=== PATIENT | male | born 1950 | race Caucasian/White ===

== ENCOUNTER 2018-03-16 08:28 | Inpatient (IN) ==
--- NOTE | 2018-03-16 09:05 | ED ---
HPI General Chief complaint: Weakness Stated complaint: doctor sent Time Seen by Provider: 03/16/18 08:47 Source: patient, RN notes reviewed and old records reviewed Mode of arrival: ambulatory Limitations: no limitations History of Present Illness HPI Narrative: 67 y/o male states since February 22 he has been generally weak with a tired feeling and not wanting to eat. He states he aches all over. He went to his new primary care doctor and had blood work done and was told that there was something critical and he should come to the hospital. He is not sure what it was. He states he has not seen that physician yet and this was just preliminary blood work. He states he will be seeing Dr. Willett. He denies other specific complaints. His family member helps supplement history as he states he does not feel like talking. MD Complaint: generalized weakness Onset (ago): week(s) Related Data Home Medications Medication Instructions Recorded Confirmed No Known Home Medications 03/16/18 03/16/18 Allergies Allergy/AdvReac Type Severity Reaction Status Date / Time No Known Allergies Allergy Verified 03/16/18 10:07 Review of Systems ROS: all other systems reviewed are negative PMFSH History History Provided By: Patient (Lung cancer in remission for multiple years with normal PET scan) and Family Member Medical History Medical History Hypertension (Acute) Lung cancer (Acute) Surgical History Surgical History History of lung surgery (Acute) Social History Social History Substance History: No History of Abuse and Past History Smoking Status: Current every day smoker Tobacco Type: Cigarettes How Often Do You Have a Drink Containing Alcohol: 4 or more times a week Immunization History Tetanus Immunization: Unsure Hx Influenza Vaccine This Season: No Exam Narrative Exam Narrative: GENERAL: 67 y/o male in no apparent distress SKIN: Focused skin assessment warm/dry. HEAD: Atraumatic. Normocephalic. EYES: Pupils equal and round. No scleral icterus. No injection or drainage. ENT: No nasal bleeding or discharge. Mucous membranes pink and moist. NECK: Trachea midline. No JVD. CARDIOVASCULAR: Regular rate and rhythm RESPIRATORY: No accessory muscle use. expiratory wheezing bilaterally. GASTROINTESTINAL: Abdomen soft, non-tender, nondistended. MUSCULOSKELETAL: No obvious deformities. No clubbing. NEUROLOGICAL: Awake. Moves all extremities. Normal speech. Course Reevaluation(s) Reevaluation #1: Patient and family member updated about results. Given generalized weakness and decreased intake will admit to the hospital for IV hydration. While he is here they can consult his oncologist Dr. Boyle to initiate cancer workup Consultations Consultation #1: dr herrera agrees to admit, states full admit Initial Documented Vital Signs Temperature 97.8 F 03/16/18 08:31 Pulse Rate 100 H 03/16/18 08:31 Respiratory Rate 22 03/16/18 08:31 Blood Pressure 116/59 L 03/16/18 08:31 Pulse Oximetry 98 03/16/18 08:31 Last Documented Vital Signs Temperature 97.8 F 03/16/18 08:31 Pulse Rate 81 03/16/18 10:00 Respiratory Rate 12 03/16/18 10:00 Blood Pressure 122/73 03/16/18 10:00 Pulse Oximetry 91 L 03/16/18 10:00 Medical Decision Making MDM Narrative Medical decision making narrative: Will check basic blood work, urinalysis, chest x-ray and obtain records from patient's doctor's office. Will dose with DuoNeb given active wheezing and reevaluate Medical Screen Exam Complete: Yes Emergency Medical Condition: Yes Differential Diagnosis Differential Diagnosis: Anemia, renal failure, pneumonia, UTI Medical Records Medical records reviewed: Yes I reviewed the patient's medical records. Office lab work shows critical calcium of 16.4, patient had also concurrent mild leukocytosis with a white count of 12.9 Lab Data Lab results reviewed: Yes I reviewed the patient's lab results. Result diagrams: 03/16/18 09:05 03/16/18 09:05 Lab Results 03/16/18 03/16/18 03/16/18 Range/Units 09:05 09:05 09:05 WBC 12.9 H (4.0-11.0) th/mm3 RBC 4.95 (4.50-5.90) mil/mm3 Hgb 15.6 (13.0-17.0) gm/dL Hct 44.3 (39.0-51.0) % MCV 89.4 (80.0-100.0) fL MCH 31.4 (27.0-34.0) pg MCHC 35.1 (32.0-36.0) % RDW 13.4 (11.6-17.2) % Plt Count 289 (150-450) th/mm3 MPV 7.3 (7.0-11.0) fL Neut % (Auto) 78.8 H (16.0-70.0) % Lymph % (Auto) 7.7 L (9.0-44.0) % Cloud % (Auto) 12.0 H (0.0-8.0) % Eos % (Auto) 0.7 (0.0-4.0) % Baso % (Auto) 0.8 (0.0-2.0) % Neut # (Auto) 10.1 H (1.8-7.7) th/mm3 Lymph # (Auto) 1.0 (1.0-4.8) th/mm3 Cloud # (Auto) 1.5 H (0.0-0.9) th/mm3 Eos # (Auto) 0.1 (0.0-0.4) th/mm3 Baso # (Auto) 0.1 (0.0-0.2) th/mm3 WBC Differential . Differential Comment Auto diff final Sodium 135 L (136-145) meq/L Potassium 3.5 (3.5-5.1) meq/L Chloride 95 L (98-107) meq/L Carbon Dioxide 30.6 (21.0-32.0) meq/L Anion Gap 9 (5-15) meq/L BUN 45 H (7-18) mg/dL Creatinine 1.84 H (0.60-1.30) mg/dL Estimated GFR 37 L (>89) mL/min Random Glucose 100 (74-106) mg/dL Calcium 16.9 H* (8.5-10.1) mg/dL Prot Corrected Calcium 16.8 H* (8.5-10.1) mg/dL Magnesium 1.5 (1.5-2.5) mg/dL Total Bilirubin 2.0 H (0.2-1.0) mg/dL AST 77 H (15-37) U/L ALT 37 (12-78) U/L Alkaline Phosphatase 342 H (45-117) U/L Total Creatine Kinase 40 (39-308) U/L Troponin I (0.02-0.05) ng/mL Total Protein 7.3 (6.4-8.2) g/dL Albumin 2.6 L (3.4-5.0) g/dL Blood Type O Positive Antibody Screen Negative 03/16/18 Range/Units 09:05 WBC (4.0-11.0) th/mm3 RBC (4.50-5.90) mil/mm3 Hgb (13.0-17.0) gm/dL Hct (39.0-51.0) % MCV (80.0-100.0) fL MCH (27.0-34.0) pg MCHC (32.0-36.0) % RDW (11.6-17.2) % Plt Count (150-450) th/mm3 MPV (7.0-11.0) fL Neut % (Auto) (16.0-70.0) % Lymph % (Auto) (9.0-44.0) % Cloud % (Auto) (0.0-8.0) % Eos % (Auto) (0.0-4.0) % Baso % (Auto) (0.0-2.0) % Neut # (Auto) (1.8-7.7) th/mm3 Lymph # (Auto) (1.0-4.8) th/mm3 Cloud # (Auto) (0.0-0.9) th/mm3 Eos # (Auto) (0.0-0.4) th/mm3 Baso # (Auto) (0.0-0.2) th/mm3 WBC Differential Differential Comment Sodium (136-145) meq/L Potassium (3.5-5.1) meq/L Chloride (98-107) meq/L Carbon Dioxide (21.0-32.0) meq/L Anion Gap (5-15) meq/L BUN (7-18) mg/dL Creatinine (0.60-1.30) mg/dL Estimated GFR (>89) mL/min Random Glucose (74-106) mg/dL Calcium (8.5-10.1) mg/dL Prot Corrected Calcium (8.5-10.1) mg/dL Magnesium (1.5-2.5) mg/dL Total Bilirubin (0.2-1.0) mg/dL AST (15-37) U/L ALT (12-78) U/L Alkaline Phosphatase (45-117) U/L Total Creatine Kinase (39-308) U/L Troponin I Less than 0.02 L (0.02-0.05) ng/mL Total Protein (6.4-8.2) g/dL Albumin (3.4-5.0) g/dL Blood Type Antibody Screen Imaging Data Attestation: I personally reviewed and interpreted this imaging study as follows : Radiologist's impression: Chest X-Ray 03/16/18 08:57 CONCLUSION: Significant change in appearance of the chest. Most recent study I have the PET scan from 10/12/2013 that had shown no recurrent disease. Recurrence is suspected. CT scan is contrast would be of benefit.. Abdomen/Pelvis CT 03/16/18 09:09 CONCLUSION: 1. Innumerable masses scattered throughout the enlarged liver consistent with metastatic disease until proven otherwise. 2. Uncomplicated colonic diverticulosis. 3. Gallbladder sludge. 4. Focal consolidation of the anterior aspect of the left lung base consistent with probable atelectasis. 5. Minimally prominent prostate with central calcifications. 6. Degenerative changes and scoliosis of the thoracolumbar spine. Chest CT 03/16/18 09:32 CONCLUSION: 1. Focal moderate to large alveolar consolidation involving the left mid lung field with probable left hilar mass/adenopathy. The findings are suspicious for neoplasm until proven otherwise. PET/CT scan may be helpful for further evaluation. 2. Innumerable liver masses are noted consistent with probable metastatic disease. 3. Coronary artery calcifications. 4. Degenerative changes and scoliosis of the thoracolumbar spine. Discharge Plan Discharge Disposition Patient Disposition: 30 Still Patient Discharge Details Diagnosis: Weakness, Lung mass, Liver metastasis Physicians Team ED Provider: Naya Mcgowan Primary Care Provider: Boris Liao Rxs /Orders / Referrals /Forms Prescriptions: No Action No Known Home Medications RF: 0 Status ED Status: Admitted Patient
[2018-03-16] MEDS: Sodium Chlor 0.9% Inj 500 ML IV.SIG SCH ×2 (09:15→11:14)
[2018-03-16 09:22] LABS: Baso # (Auto) 0.1 th/mm3 (0.0-0.2); Baso % (Auto) 0.8 % (0.0-2.0); Eos # (Auto) 0.1 th/mm3 (0.0-0.4); Eos % (Auto) 0.7 % (0.0-4.0); Hematocrit 44.3 % (39.0-51.0); Hemoglobin 15.6 gm/dL (13.0-17.0); Lymph % (Auto) 7.7 % (9.0-44.0); Mean Corpuscular HGB Conc 35.1 % (32.0-36.0); Mean Corpuscular Hemoglobin 31.4 pg (27.0-34.0); Mean Corpuscular Volume 89.4 fL (80.0-100.0); Mean Platelet Volume 7.3 fL (7.0-11.0); Mono # (Auto) 1.5 th/mm3 (0.0-0.9); Neut # (Auto) 10.1 th/mm3 (1.8-7.7); Neut % (Auto) 78.8 % (16.0-70.0); Platelet Count 289 th/mm3 (150-450); Red Blood Count 4.95 mil/mm3 (4.50-5.90); Red Cell Distribution Width 13.4 % (11.6-17.2); White Blood Count 12.9 th/mm3 (4.0-11.0)
--- NOTE | 2018-03-16 09:28 | XR ---
EXAM DATE: 03/16/2018 8:57 AM EDT AGE/SEX: 67 years / Male INDICATIONS: Shortness of breath, cough, general weakness. CLINICAL DATA: This is the patient's initial encounter. Patient reports that signs and symptoms have been present for 3 weeks and indicates a pain score of 0/10. MEDICAL/SURGICAL HISTORY: Hypertension. Carcinoma, lung. None. COMPARISON: [facility], CHEST SINGLE AP, 12/11/2010. . FINDINGS: Increasing soft tissue mass and consolidation left lung in this individual with history of carcinoma of the lung. Old rib fractures on the right. The right lung is clear. The heart and pulmonary vascularity are normal. The portion of the bony skeleton visualized is unremarkable. CONCLUSION: Significant change in appearance of the chest. Most recent study I have the PET scan from 10/12/2013 th at had shown no recurrent disease. Recurrence is suspected. CT scan is contrast would be of benefit.. Electronically signed by: Lee Boogie MD 03/16/2018 9:26 AM EDT
[2018-03-16 10:13] LABS: Albumin 2.6 g/dL (3.4-5.0); Calcium 16.9 mg/dL (8.5-10.1); Carbon Dioxide 30.6 meq/L (21.0-32.0); Magnesium 1.5 mg/dL (1.5-2.5); Potassium 3.5 meq/L (3.5-5.1); Total Protein 7.3 g/dL (6.4-8.2)
[2018-03-16] MEDS ORDERED: Sodium Chlor 0.9% Inj 500 ML IV.SIG SCH (11:00)
--- NOTE | 2018-03-16 11:24 | CT ---
EXAM DATE: 03/16/2018 10:50 AM EDT AGE/SEX: 67 years / Male INDICATIONS: Vomiting and weakness. CLINICAL DATA: This is the patient's initial encounter. Patient reports that signs and symptoms have been present for 1 day and indicates a pain score of 1/10. MEDICAL/SURGICAL HISTORY: Hypertension. Carcinoma, lung. None. RADIATION DOSE: 5.40 CTDI (mGy) COMPARISON: [facility], PET/CT TUMOR, 10/12/2013. . TECHNIQUE: Multiple contiguous axial images were obtained through the abdomen. Images were obtained using multiple row detector helical technique. Using automated exposure control and adjustment of the mA and/or kV according to patient size, radiation dose was kept as low as reasonably achievable to o btain optimal diagnostic quality images. DICOM format image data is available electronically for rev iew and comparison. FINDINGS: Lower Lungs: There is focal consolidation of the anterior aspect of the left lung base consistent wit h probable atelectasis. Liver: Innumerable masses are noted scattered throughout the enlarged liver consistent with metastati c disease until proven otherwise. No biliary ductal dilatation is noted. Sludge is noted within the g allbladder. Spleen: Homogeneous density without enlargement. Pancreas: Unremarkable without mass or calcification. Kidneys: Normal in size and shape. No evidence of mass or hydronephrosis. There is a 2.9 cm exophyti c cyst arising from the lateral aspect of the right kidney. Adrenal Glands: Unremarkable. Aorta: The aorta and proximal iliac vessels are grossly unremarkable without aneurysmal dilation. Bowel/Mesentery: Uncomplicated colonic diverticulosis is noted. Abdominal Wall: Intact. Retroperitoneum: No evidence of adenopathy in the retrocrural, para-aortic, or deep pelvic regions. Bladder: Contours are smooth. Reproductive Organs: The prostate is minimally prominent and contains central calcifications. Inguinal: The inguinal region is unremarkable without evidence of adenopathy. Bony Structures: Degenerative changes and scoliosis of the thoracolumbar spine are noted. CONCLUSION: 1. Innumerable masses scattered throughout the enlarged liver consistent with metastatic disease unt il proven otherwise. 2. Uncomplicated colonic diverticulosis. 3. Gallbladder sludge. 4. Focal consolidation of the anterior aspect of the left lung base consistent with probable atelect asis. 5. Minimally prominent prostate with central calcifications. 6. Degenerative changes and scoliosis of the thoracolumbar spine. Electronically signed by: Chaz Murray MD 03/16/2018 11:23 AM EDCal
--- NOTE | 2018-03-16 11:30 | CT ---
EXAM DATE: 03/16/2018 10:50 AM EDT AGE/SEX: 67 years / Male INDICATIONS: Weakness. Vomiting. Weight loss. CLINICAL DATA: This is the patient's initial encounter. Patient reports that signs and symptoms have been present for 1 day and indicates a pain score of 0/10. MEDICAL/SURGICAL HISTORY: Carcinoma, lung. Hypertension. None. RADIATION DOSE: 5.40 CTDI (mGy) [place]PAR[place] [facility] [place]2012. . TECHNIQUE: Multiple contiguous axial images were obtained through the chest without contrast. Image s were obtained in suspended respiration using multiple row detector helical technique. Using automa millie exposure control and adjustment of the mA and/or kV according to patient size, radiation dose was kept as low as reasonably achievable to obtain optimal diagnostic quality images. DICOM format imag e data is available electronically for review and comparison. FINDINGS: Lungs: There is focal moderate to large alveolar consolidation involving the left mid lung field wit h probable left hilar mass/adenopathy. The findings are suspicious for neoplasm until proven otherwis e. PET/CT scan may be helpful for further evaluation. Focal scarring is noted within the right latera l lung base. Mediastinum: There is good visualization of the great vessels of the middle mediastinum. No evidenc e of mediastinal or hilar adenopathy/mass. Coronary artery calcifications are noted. Pleurae: No evidence of focal thickening or pleural effusion. Axillae: Unremarkable. Bony Structures: Degenerative changes and scoliosis of the thoracolumbar spine are noted. Miscellaneous: The examination was extended to include the upper abdomen, and both adrenal glands ar e normal in size and configuration. Innumerable liver masses are noted consistent with probable metas tatic disease. CONCLUSION: 1. Focal moderate to large alveolar consolidation involving the left mid lung field with probable le ft hilar mass/adenopathy. The findings are suspicious for neoplasm until proven otherwise. PET/CT sca n may be helpful for further evaluation. 2. Innumerable liver masses are noted consistent with probable metastatic disease. 3. Coronary artery calcifications. 4. Degenerative changes and scoliosis of the thoracolumbar spine. Electronically signed by: Chaz Murray MD 03/16/2018 11:28 AM EDT
--- NOTE | 2018-03-16 12:52 | P.HP ---
History of Present Illness Primary Care Physician: Boris Liao MD Chief Complaint: Abnormal labs patient was sent in by primary care doctor History of Present Illness: Patient is a very pleasant 67-year-old male with history of lung cancer in 2010 status post radiation therapy and chemotherapy completed in [address] Boyle. Patient had had no follow-up and finally gotten insurance and had a appointment set up first time this week. Prior to first office visit- routine laboratories were drawn and when results were sent to PCP was called by the office and instructed come in here for further evaluation. Specifically hypercalcemia and elevated BUN/creatinine. On further questioning patient lives by himself, Patient states that he still smokes 1 pack/day and quit smoking this morning. been complaining actually of poor p.o. intake and weight loss for the past 3-4 months now. Patient still coughs periodically but no significant sputum, no hemoptysis. Patient denies any changes in his functional status denies- except for generalized weakness- still ambulates independently , no shortness of breath chest pain. On evaluation here at the ER repeat labs confirmed high calcium level and elevated BUN/creatinine. On imaging study shows a new lung mass. Admitted for further evaluation and management. Inpatient Certification: I certify that the inpatient services were ordered in accordance with Medicare regulations governing the order. This includes certification that hospital inpatient services are reasonable and necessary and in the case of services not specified as inpatient-only under 42 CFR 419.22(n), that they are appropriately provided as inpatient services in accordance to with the 2-midnight benchmark under 43 CFR 412.3(e) Estimated Total Length of Stay (Days): 3 Plans for Post Hospital Care: Not yet determined Review of Systems Patient with poor p.o. appetite, anorexia, positive weight loss, denies any fever chest pain or shortness of breath Minimal cough chronic no hemoptysis Denies any diarrhea Positive occasional constipation No melena no hematochezia No leg swelling PMFSH - History History Provided By: Patient (Lung cancer in remission for multiple years with normal PET scan), Family Member - Medical History Medical History: Medical History (Last Reviewed 03/16/18 @ 09:04 by Naya Mcgowan MD) Hypertension Lung cancer - Surgical History Surgical History: Surgical History (Last Updated 03/16/18 @ 12:48 by Usha Tolliver MD) History of lung surgery - Tobacco History Tobacco Use In Past 30 Days: Yes Smoking Status: Current every day smoker Tobacco Type: Cigarettes - Alcohol History How Often Do You Have a Drink Containing Alcohol: 4 or more times a week - Substance Use History Substance History: No History of Abuse, Past History - Immunization History Tetanus Immunization: Unsure Hx Influenza Vaccine This Season: No Medications and Allergies Active Medications: Active Medications Sodium Chloride (Ns Inj) 500 mls @ 0 mls/hr IV.SIG BOLUS ADAM Last Admin: 03/16/18 11:14 Dose: 999 mls/hr Sodium Chloride (Ns Inj) 500 mls @ 0 mls/hr IV.SIG BOLUS ADAM Sodium Chloride (Ns Inj) 1,000 mls @ 200 mls/hr IV.CONT .Q5H ADAM Sodium Chloride (Ns Flush) 2 ml IV.FLUSH PRN PRN PRN Reason: FLUSH AFTER USING IV ACCESS Sodium Chloride (Ns Flush) 2 ml IV.FLUSH BID ADAM Allergies Allergy/AdvReac Type Severity Reaction Status Date / Time No Known Allergies Allergy Verified 03/16/18 10:07 Home Medications Medication Instructions Recorded Confirmed Type No Known Home Medications 03/16/18 03/16/18 History Exam Vital signs: Vital Signs 03/16/18 08:31 03/16/18 08:50 03/16/18 09:13 Temperature 97.8 F Pulse Rate 100 H 95 H 88 Respiratory Rate 22 16 20 Blood Pressure 116/59 L 112/63 Pulse Oximetry 98 96 03/16/18 10:00 Temperature Pulse Rate 81 Respiratory Rate 12 Blood Pressure 122/73 Pulse Oximetry 91 L Intake & Output 03/15/18 03/16/18 03/16/18 18:59 06:59 18:59 Intake Total 500 / 500 Balance 500 / 500 Weight 68.039 kg Intake: IV 500 / 500 NS Inj 500 ML @ Wide Open IV. 500 / 500 SIG BOLUS ADAM Rx#:[id number] Narrative: Patient is awake alert oriented x3 not in any form of acute distress Anicteric sclera Dry oral mucosa Neck was supple no JVD no bruit Chest lungs bilateral breath sounds equal no rales no wheezes Regular rhythm Abdomen soft nontender with good bowel sounds no guarding or rigidity Extremities no edema Neurologic exam ANO x3 clear speech cranial nerves grossly intact motor moves all extremities equally 5/5 on individual muscle testing Grossly no sensory deficits. Results - Labs CBC & Chem 7: 03/16/18 09:05 03/16/18 09:05 Labs: Laboratory Results - last 24 hr 03/16/18 03/16/18 03/16/18 09:05 09:05 09:05 WBC 12.9 H RBC 4.95 Hgb 15.6 Hct 44.3 MCV 89.4 MCH 31.4 MCHC 35.1 RDW 13.4 Plt Count 289 MPV 7.3 Neut % (Auto) 78.8 H Lymph % (Auto) 7.7 L [place] % (Auto) 12.0 H Eos % (Auto) 0.7 Baso % (Auto) 0.8 Neut # (Auto) 10.1 H Lymph # (Auto) 1.0 [place] # (Auto) 1.5 H Eos # (Auto) 0.1 Baso # (Auto) 0.1 WBC Differential . Differential Comment Auto diff final Sodium 135 L Potassium 3.5 Chloride 95 L Carbon Dioxide 30.6 Anion Gap 9 BUN 45 H Creatinine 1.84 H Estimated GFR 37 L Random Glucose 100 Calcium 16.9 H* Prot Corrected Calcium 16.8 H* Magnesium 1.5 Total Bilirubin 2.0 H AST 77 H ALT 37 Alkaline Phosphatase 342 H Total Creatine Kinase 40 Troponin I Total Protein 7.3 Albumin 2.6 L Blood Type O Positive Antibody Screen Negative 03/16/18 09:05 WBC RBC Hgb Hct MCV MCH MCHC RDW Plt Count MPV Neut % (Auto) Lymph % (Auto) [place] % (Auto) Eos % (Auto) Baso % (Auto) Neut # (Auto) Lymph # (Auto) [place] # (Auto) Eos # (Auto) Baso # (Auto) WBC Differential Differential Comment Sodium Potassium Chloride Carbon Dioxide Anion Gap BUN Creatinine Estimated GFR Random Glucose Calcium Prot Corrected Calcium Magnesium Total Bilirubin AST ALT Alkaline Phosphatase Total Creatine Kinase Troponin I Less than 0.02 L Total Protein Albumin Blood Type Antibody Screen - Imaging Impressions Chest X-Ray 03/16/18 08:57 CONCLUSION: Significant change in appearance of the chest. Most recent study I have the PET scan from 10/12/2013 that had shown no recurrent disease. Recurrence is suspected. CT scan is contrast would be of benefit.. Abdomen/Pelvis CT 03/16/18 09:09 CONCLUSION: 1. Innumerable masses scattered throughout the enlarged liver consistent with metastatic disease until proven otherwise. 2. Uncomplicated colonic diverticulosis. 3. Gallbladder sludge. 4. Focal consolidation of the anterior aspect of the left lung base consistent with probable atelectasis. 5. Minimally prominent prostate with central calcifications. 6. Degenerative changes and scoliosis of the thoracolumbar spine. Chest CT 03/16/18 09:32 CONCLUSION: 1. Focal moderate to large alveolar consolidation involving the left mid lung field with probable left hilar mass/adenopathy. The findings are suspicious for neoplasm until proven otherwise. PET/CT scan may be helpful for further evaluation. 2. Innumerable liver masses are noted consistent with probable metastatic disease. 3. Coronary artery calcifications. 4. Degenerative changes and scoliosis of the thoracolumbar spine. Caprini VTE Risk Assessment Caprini VTE Risk Assessment: Moderate/High Risk (score >= 2) Caprini Risk Assessment Model: Point Value = 1 Point Value = 2 Point Value = 3 Point Value = 5 Age 41-60 Minor surgery BMI > 25 kg/m2 Swollen legs Varicose veins or History of unexplained or recurrent spontaneous Oral contraceptives or hormone replacement Sepsis (< 1 month) Serious lung disease, including pneumonia (< 1 month) Abnormal pulmonary function Acute myocardial infarction Congestive heart failure (< 1 month) History of inflammatory bowel disease Medical patient at bed rest Age 61-74 Arthroscopic surgery Major open surgery (> 45 min) Laparoscopic surgery (> 45 min) Malignancy Confined to bed (> 72 hours) Immobilizing plaster cast Central venous access Age >= 75 History of VTE Family history of VTE Factor V Leiden Prothrombin [id number] Lupus anticoagulant Anticardiolipin antibodies Elevated serum homocysteine Heparin-induced thrombocytopenia Other congenital or acquired thrombophilia Stroke (< 1 month) Elective arthroplasty Hip, pelvis, or leg fracture Acute spinal cord injury (< 1 month) Prophylaxis Regimen: Total Risk Factor Score Risk Level Prophylaxis Regimen 0-1 Low Early ambulation 2 Moderate Order ONE of the following: *Sequential Compression Device (SCD) *Heparin 5000 units SQ BID 3-4 Higher Order ONE of the following medications: *Heparin 5000 units SQ TID *Enoxaparin/Lovenox 40 mg SQ daily (WT < 150 kg, CrCl > 30 mL/min) *Enoxaparin/Lovenox 30 mg SQ daily (WT < 150 kg, CrCl > 10-29 mL/min) *Enoxaparin/Lovenox 30 mg SQ BID (WT < 150 kg, CrCl > 30 mL/min) AND/OR *Sequential Compression Device (SCD) 5 or more Highest Order ONE of the following medications: *Heparin 5000 units SQ TID (Preferred with Epidurals) *Enoxaparin/Lovenox 40 mg SQ daily (WT < 150 kg, CrCl > 30 mL/min) *Enoxaparin/Lovenox 30 mg SQ daily (WT < 150 kg, CrCl > 10-29 mL/min) *Enoxaparin/Lovenox 30 mg SQ BID (WT < 150 kg, CrCl > 30 mL/min) AND *Sequential Compression Device (SCD) Assessment and Plan - Plan 67-year-old male presenting with generalized weakness poor p.o. appetite Acute kidney injury - pre renal secondary to poor p.o.- anorexia,malignancy Hypercalcemia of malignancy calcium level of 16.9 Patient received 1 L normal saline bolus Start normal saline hydration at 200 cc an hour Will give one-time IV pamidronate 60 mg x1. Recheck CMP in a.m. encourage po fluids New lung mass likely Recurrent lung cancer Liver metastases on CT imaging We will consult his oncologist Dr. Boyle and d/w her ? proceed with CT guided biopsy or bronchoscopy History of hypertension on no meds. Regular diet Generalized weakness multifactorial- no focal neuro deficits PT consult Smoker- counselled extensively Poor p.o. intake likely secondary to malignancy Consult dietitian. Start patient on Ensure supplements. Heparin subcu for DVT prophylaxis- hold for now- may need further procedures like bronchoscopy or CT guided biopsy Encourage ambulation- increase activity- out of bed for all meals TEDS
[2018-03-16] MEDS ORDERED: Pamidronate Inj 60 MG in Sodium Chlor 0.9% Inj 500 ML IV.SIG ONE (12:58)
[2018-03-16] MEDS: Sod Chloride 0.9% Inj 1,000 ML IV.CONT SCH ×2 (13:18→22:25)
--- NOTE | 2018-03-16 18:52 | MB ---
cc: Vickie Boyle MD,Usha Varela MD DATE: 03/16/2018 REFERRING PHYSICIAN: Dr. Usha Tolliver CHIEF COMPLAINT: Dr. Tolliver requests a consultation for Mr. Nagy regarding hypercalcemia associated with imaging study consistent with metastatic bronchogenic carcinoma. HISTORY OF PRESENT ILLNESS: Mr. Nagy is a 67-year-old man, well known patient, last seen in oncology clinic on 10/16/2013. 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 It is a metastatic squamous cell cancer of unknown primary. He was treated with concurrent chemotherapy and radiation. He was followed with serial imaging study, had no evidence of recurrent disease. He also has a history of Steward esophagus. He had hypertension, chronic tobacco use, and emphysema. He was lost to followup. Apparently, he has had some insurance issues. He was doing well from his lung cancer standpoint. He reports doing well until about 2 weeks prior to his presentation. He went to a friend's house to watch football. The day after he felt like he had the flu, and flu symptoms never left him. He felt feverish. He had some sweats. His symptoms became progressively worse. His appetite is poor. He finds it difficult to eat. He has no energy. He finally decided to see a primary physician after not seeing a physician for many years. He has an appointment in 3 weeks' time. However, he came in to drop off the paperwork. He was offered to do his blood work. He was found to have abnormal blood work. His primary physician prompted him to go straight to the Emergency Room. He was seen in the Emergency Room. His CBC shows a mild leukocytosis, white blood cell count 12.9. Chemistry, however, is significant for renal insufficiency with BUN of 45, creatinine of 1.84. Serum calcium was 16.9. Total bilirubin is 2.0, AST is 77, alkaline phosphatase 342, albumin is 2.6. Imaging study performed shows a CT scan of the chest with a focal moderate to large alveolar consolidation involving the left midlung field. There is suspected left hilar mass and adenopathy. CT scan of the abdomen shows liver with innumerable metastatic disease. Hematology/oncology is consulted because of his history of cancer and the above findings. The patient reports no headache, no vision changes. No urinary complaints. He has chronic constipation. He has 3 sisters that live in the area. He is from his significant other, who is suffering from a head and neck cancer in [place]. Their relationship has ended. He currently lives alone. 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 PAST MEDICAL HISTORY: 1. Squamous cell cancer, unknown primary, to T9. 2. Hypertension. 3. Chronic obstructive pulmonary disease. 4. Chronic tobacco use. PAST SURGICAL HISTORY: Port placement, lung biopsy, mediastinoscopy. FAMILY HISTORY: Mother was a smoker. She had lung cancer. Father of colon cancer in his 50s. SOCIAL HISTORY: He has a 95-[id number]-huzv smoking history. He stopped smoking at the time of his cancer diagnosis in 2010. He resumed smoking again. PHYSICAL EXAMINATION: VITAL SIGNS: Temperature 98.2, heart rate 90, respiratory rate 21, blood pressure 140/68, saturation 92%. GENERAL: Mr. Ngay is a well-developed, well-nourished, elderly man who looks older than stated age. HEENT: His pupils are round, reactive to light and accommodation. Oropharynx is clear. NECK: Supple. LUNGS: Diminished throughout. CARDIOVASCULAR: Normal rate and rhythm. ABDOMEN: Benign. He is barrel chested. EXTREMITIES: Lower extremities with no edema. He has osteoarthritic changes of the ankles and knees. ALLERGIES: NO KNOWN DRUG ALLERGIES. CURRENT MEDICATIONS: Unfractionated heparin, sodium chloride. ASSESSMENT AND PLAN: Mr. Nagy is a 67-year-old man with history of squamous cell cancer, metastatic disease, unknown primary. He had a mediastinoscopy and lymph node biopsy that showed squamous cell cancer. He had metastatic disease to T9. He had a definitive concurrent chemotherapy and radiation. He went into remission. There was no evidence of recurrent or metastatic disease from his last imaging study on his last visit in 2013. He was lost to followup. He actually has not seen a physician even for his hypertension and COPD for many years. He describes worsening symptoms of shortness of breath, malaise, fevers and chills over the last 2 weeks. He had laboratory evaluation from a new primary physician and was found to have hypercalcemia and was referred to the hospital for evaluation. We had a lengthy discussion with Mr. Nagy, the diagnosis of hypercalcemia. We discussed the imaging study showing the left mid lung mass as well as the innumerable metastatic disease to liver. We discussed the possibility of second primary lung cancer versus recurrence of his metastatic squamous cell cancer. I cannot be certain since his diagnosis was back in 2010. I recommend a repeat CT-guided biopsy of the liver. Additional testing for MSI, mutational tumor burden, and PD-L1 will be performed. We discussed plans to treat the hypercalcemia with IV fluid hydration. I anticipate that his hypercalcemia would persist. However, his renal function would improve. I anticipate using pamidronate tomorrow to assist in managing the hypercalcemia. Many of his symptoms are probably related to the hypercalcemia. His sister was called at his request to explain the above. We discussed the findings and now plan to proceed with a CT-guided biopsy and control of his hypercalcemia. Chemistries will be repeated tomorrow before starting the IV bisphosphonate. We discussed replacement of the port. Previously, his port was placed by Dr. Teague. Underlying chronic obstructive pulmonary disease and hypertension will be followed. His questions were answered to his satisfaction. MD SHERINE Proctor/alfreda , 06:01 PM , 06:17 PM
[2018-03-16 19:03] LABS: Bilirubin,Urine Negative (Negative); Clarity,Urine Clear (Clear); Color,Urine Yellow (Yellw/Straw); Glucose,Urine (UA) Negative (Negative); Hyaline Casts,Urine 1 /lpf (0-3); Leukocyte Esterase,Urine Negative (Negative); Nitrite,Urine Negative (Negative); Specific Gravity,Urine 1.011 (1.002-1.035); Squamous Epithelial Cell,Urine <1 /hpf (0-5)
--- NOTE | 2018-03-16 20:54 | ECG ---
Date Performed: 03/16/2018 Time Performed: 08:56:42 PTAGE: 67 years EKG: Sinus rhythm MARKED RIGHT AXIS DEVIATION DIFFUSE ST-T CHANGES ABNORMAL ECG PREVIOUS TRACING : 05/17/2013 10.44 Compared to previous tracing, ST-T changes are new DOCTOR: Víctor Loja Interpretating Date/Time 03/16/2018 20:52:33
[2018-03-16] MEDS: Heparin - SQ 10,000 UNITS/ML Vial SQ SCH (22:20)
[2018-03-16] MEDS: Sodium Chloride 0.9% 2 ML Flush BID IV.FLUSH SCH (22:21)
[2018-03-17] MEDS: Sod Chloride 0.9% Inj 1,000 ML IV.CONT SCH ×4 (02:30→16:21)
[2018-03-17 05:15] LABS: Activated Partial Thrombo Time 24.8 sec (24.3-30.1); INR 1.2 Ratio; Prothrombin Time 12.4 sec (9.8-11.6)
[2018-03-17 05:39] LABS: Albumin 2.1 g/dL (3.4-5.0); Calcium 14.2 mg/dL (8.5-10.1); Total Protein 5.8 g/dL (6.4-8.2)
[2018-03-17 05:47] LABS: Potassium 2.8 meq/L (3.5-5.1)
[2018-03-17] MEDS ORDERED: Potassium Chloride 25 MEQ Effervescent Tablet PO ONE ×2 (05:52→11:45)
[2018-03-17] MEDS: Sodium Chloride 0.9% 2 ML Flush BID IV.FLUSH SCH ×2 (10:06→22:10)
[2018-03-17] MEDS: Heparin - SQ 10,000 UNITS/ML Vial SQ SCH ×2 (10:06→23:23)
--- NOTE | 2018-03-17 11:38 | P.PNIM ---
Subjective Interval history: The patient was about to go for liver biopsy. He said he was doing well. He denies any acute complaints. Discussed with nursing. Physical Exam Vital signs: Vital Signs 03/16/18 14:36 03/16/18 15:49 03/16/18 16:00 Temperature 98.2 F Pulse Rate 74 72 90 Respiratory Rate 16 21 Blood Pressure 141/67 H 140/68 Pulse Oximetry 92 L 03/16/18 20:00 03/17/18 00:00 03/17/18 03:43 Temperature 99 F 98.0 F Pulse Rate 81 82 84 Respiratory Rate 20 17 Blood Pressure 150/83 H 127/60 Pulse Oximetry 94 L 03/17/18 04:00 Temperature Pulse Rate 84 Respiratory Rate Blood Pressure Pulse Oximetry Intake & Output 03/16/18 03/17/18 03/17/18 18:59 06:59 18:59 Intake Total 2000 / 2000 1520 / 1520 1000 / 1000 Output Total 950 / 950 Balance 1999 / 2000 570 / 570 1000 / 1000 Weight 68.039 kg 81.4 kg Intake: IV 2000 / 2000 1520 / 1520 1000 / 1000 NS Inj 1,000 ML @ 200 mls/hr IV 1000 / 1000 1000 / 1000 1000 / 1000 .CONT .Q5H ADAM Rx#:[id number] Aredia Inj 60 MG In NS Inj 500 520 / 520 ML @ 130 mls/hr IV.SIG ONCE ONE Rx#:[id number] NS Inj 500 ML @ Wide Open IV. 1000 / 1000 SIG BOLUS ADAM Rx#:[id number] Output: Urine 950 / 950 Other: # Voids 4 1 Narrative: General: No distress HEENT: Anicteric sclera; Dry oral mucosa Neck: supple no JVD no bruit Chest: lungs bilateral breath sounds equal no rales no wheezes Heart: Regular rhythm Abdomen: soft, nontender with good bowel sounds, no guarding or rigidity Extremities: no edema Neuro: ANO x3 clear speech cranial nerves grossly intact. motor moves all extremities equally 5/5 on individual muscle testing Results - Labs CBC & Chem 7: 03/16/18 09:05 03/17/18 03:59 Laboratory Results - last 24 hr 03/16/18 03/17/18 03/17/18 18:00 03:59 03:59 PT 12.4 H INR 1.2 APTT 24.8 Sodium 140 Potassium 2.8 L* Chloride 101 Carbon Dioxide 31.0 Anion Gap 8 BUN 40 H Creatinine 1.50 H Estimated GFR 46 L Random Glucose 85 Calcium 14.2 H* D Prot Corrected Calcium Total Bilirubin 1.9 H AST 70 H ALT 29 Alkaline Phosphatase 270 H Total Protein 5.8 L D Albumin 2.1 L Urine Color Yellow Urine Clarity Clear Urine pH 5.0 Ur Specific [place] 1.011 Urine Protein Negative Urine Glucose (UA) Negative Urine Ketones Negative Urine Occult Blood Negative Urine Nitrate Negative Urine Bilirubin Negative Urine Urobilinogen 2.0 H Ur Leukocyte Esterase Negative Urine RBC Less than 1 Urine WBC 4 Ur Squamous Epith Cells <1 Hyaline Casts 1 Micro UA Comment Culture not ind Ur Microscopic Review Not Reportable Urine Culture Comments Culture not ind - Imaging Impressions Abdomen/Pelvis CT 03/16/18 09:09 CONCLUSION: 1. Innumerable masses scattered throughout the enlarged liver consistent with metastatic disease until proven otherwise. 2. Uncomplicated colonic diverticulosis. 3. Gallbladder sludge. 4. Focal consolidation of the anterior aspect of the left lung base consistent with probable atelectasis. 5. Minimally prominent prostate with central calcifications. 6. Degenerative changes and scoliosis of the thoracolumbar spine. Chest CT 03/16/18 09:32 CONCLUSION: 1. Focal moderate to large alveolar consolidation involving the left mid lung field with probable left hilar mass/adenopathy. The findings are suspicious for neoplasm until proven otherwise. PET/CT scan may be helpful for further evaluation. 2. Innumerable liver masses are noted consistent with probable metastatic disease. 3. Coronary artery calcifications. 4. Degenerative changes and scoliosis of the thoracolumbar spine. Assessment and Plan - Plan 67-year-old male presenting with generalized weakness poor p.o. appetite Acute kidney injury - pre renal secondary to poor p.o.- anorexia,malignancy Hypercalcemia of malignancy calcium level of 16.9 Patient received 1 L normal saline bolus -continue normal saline hydration at 200 cc an hour -received one-time IV pamidronate 60 mg x1. -Recheck CMP in a.m. -encourage po fluids New lung mass likely Recurrent lung cancer. Liver metastases on CT imaging. Oncology consult appreciated. -liver biopsy pending. Generalized weakness multifactorial- no focal neuro deficits -PT consult Smoker -counselled extensively Poor p.o. intake Likely secondary to malignancy -Consult dietitian. Start patient on Ensure supplements. Hypokalemia Severe. -replete and monitor. -telemetry. PPx: Heparin
[2018-03-17] MEDS ORDERED: Lidocaine 1%/Epinephrine 1:100,000 Inj 20 ML Vial ONE (12:18)
[2018-03-17] MEDS ORDERED: fentaNYL Citrate Inj 250 MCG/5 ML Ampul ONE (12:24)
--- NOTE | 2018-03-17 13:00 | P.RAD ---
Post CT Procedure Prog Note - Procedure Information Procedure Date: 03/17/18 Supervising Radiologist: Lyndon Junior Jr, MD Proceduralist/Assist: Trinity Anesthesia: Conscious Sedation - Plan of Activity Patient to Unit: ROPU Patient condition: Good See PACS Report for procedural detail/treatment. Biopsy CT Liver Specimen: Core Biopsy Findings: 5 core samples and one culture of right hepatic mass. Cx secondary to appearance of fluid associated with the mass. Likely related to necrotic material as opposed to abscess. Plan: await cx and bx results.
[2018-03-17] MEDS ORDERED: Pamidronate Inj 60 MG in Sodium Chlor 0.9% Inj 500 ML IV.SIG ONE (13:35)
--- NOTE | 2018-03-17 14:26 | CT ---
EXAM DATE: 03/17/2018 10:38 AM EDT AGE/SEX: 67 years / Male INDICATIONS: Liver mass. CLINICAL DATA: This is the patient's initial encounter. Patient reports that signs and symptoms have been present for 1 day and indicates a pain score of 0/10. MEDICAL/SURGICAL HISTORY: Carcinoma, lung. Metastatic disease. Hypertension. None. COMPARISON: [facility] [place], CT ABDOMEN & PELVIS W/O CONTRAST, 03/16/2018. . SEDATION TIME (min): 20min BIOPSY SITE: . liver MEDICATION(S): 2mg midazolam (Versed) IV 100mcg fentanyl (Sublimaze) IV DEVICE(S): 17 gauge Introducer 18 gauge BARD biopsy needle Five core specimen(s) sent to the laboratory for pathologic evaluation. . . PROCEDURE: CT guided . liver biopsy Prior to the procedure informed consent was obtained. Any appropriate prior imaging studies were rev iewed. Using automated exposure control and adjustment of the mA and/or kV according to patient size, radiat ion dose was kept as low as reasonably achievable to obtain optimal diagnostic quality images. DICOM format image data is available electronically for review and comparison. The site was prepped in a sterile fashion. Full sterile technique was used, including cap, mask, vaughn rile gloves and gown and a large sterile sheet. Hand hygiene and 2% chlorhexidine and/or betadine/al cohol prep was utilized per protocol for cutaneous antisepsis. The skin and subcutaneous tissues wer e infiltrated with local anesthetic solution. Correlation with the prior CT 03/16/2018 was performed. Multiple low-density masses seen scattered thr oughout the liver. A peripheral segment 5 lesion was targeted during this biopsy. With CT guidance th e previously identified target was localized. Biopsy was performed using a 17-gauge coaxial needle an d 18-gauge Bard core biopsy needle. The initial passage of the coaxial needle yielded turbid fluid li radames relating to necrotic material. Aspiration of the small volume of this fluid was performed and se nt for microbiological evaluation. A total of 5 core biopsy specimens were obtained. The overall volu me of each biopsy specimen was relatively small necessitating that number of passes with a needle. Ad equate hemostasis was obtained with compression at the puncture site. Follow-up CT scan reveals no hemorrhage. The patient tolerated the procedure well and there were no complications. The patient was returned to the Radiology Outpatient Unit in stable condition. CONCLUSION: 1. Uncomplicated CT guided core biopsy of one of the right hepatic lobe masses. During the biopsy tu rbid fluid was noted likely relating to necrotic material. A sample of this was sent for culture. Electronically signed by: Lyndon Junior MD 03/17/2018 2:24 PM EDT
--- NOTE | 2018-03-17 15:39 | P.DIET ---
Nutritional Evaluation Type of nutrition evaluation: initial Nutrition screening: [facility] (Poor PO Intake. anorexia-new lung mass-recurrent lung CA) Subjective Subjective Comments: Ate no breakfast and only ~10% of meals yesterday. Out of room for liver biopsy. Reported poor po intake, anorexia and weight loss [employer]. Objective - Diagnosis Generalized weakness, Lung Mass, Liver Mets - Objective % IBW: 138 (IBW = 130#) Body Weight Used for Calculations: Upper end of IBW (65 kg) Energy Needs - Lower Range (kCal/kg): 30 Energy Needs - Upper Range (kCal/kg): 35 Lower Limit kCal/kg (kCals): 2,445 Upper Limit kCal/kg (kCals): 2,849 Lower Limit Protein Factor (Grams per Kg): 1.2 Upper Limit Protein Factor (Grams per Kg): 1.5 Lower Protein Needs (Protein): 78 Upper Protein Needs (Protein): 98 Dietitian Reviewed in Medical Record: Current diet, Curent medications, Intake & Output, Labs, Medical history Diet Order: Regular with Ensure tid Objective Comments: Labs: K 2.8, BUN/creat 40/1.50, Est GFR 46, Ca 142 Feeding - Current PO Supplement Current Supplement: Ensure Original Current Supplement Flavor: [place] Current Frequency of Supplement: Three times a day Current kCals Provided by Supplement: 220 (per 8 oz) Current Protein Provided by Supplement: 9 (per 8 oz) Assessment Assessment: Pt is at high nutrition risk 2' dx and poor po intake. Weight remains above IBW range with a BMI of 30.8. Ensure supplements have been ordered. Pt may benefit from an appetite stimulant such as Marinol. RD will follow. Recommendations: 1. Continue regular diet with Ensure tid 2. Please record % of meal eaten in EMR Feeding Assessment 3. Consider Marinol to improve appetite Dietitian to Monitor: Lab values, Supplement acceptance, Intake & Output, Diet tolerance, Weight change, PO Intake, Medical course
[2018-03-17 20:30] LABS: Carbon Dioxide 27.6 meq/L (21.0-32.0); Potassium 3.6 meq/L (3.5-5.1)
[2018-03-17 20:42] LABS: Total Protein 6.1 g/dL (6.4-8.2)
[2018-03-17 21:39] LABS: Calcium 14.5 mg/dL (8.5-10.1)
[2018-03-18] MEDS: Sod Chloride 0.9% Inj 1,000 ML IV.CONT SCH ×6 (00:19→21:11)
[2018-03-18 07:30] LABS: Hematocrit 37.8 % (39.0-51.0); Hemoglobin 13.1 gm/dL (13.0-17.0); Mean Corpuscular HGB Conc 34.6 % (32.0-36.0); Mean Corpuscular Hemoglobin 31.2 pg (27.0-34.0); Mean Corpuscular Volume 90.3 fL (80.0-100.0); Mean Platelet Volume 7.4 fL (7.0-11.0); Platelet Count 228 th/mm3 (150-450); Red Blood Count 4.18 mil/mm3 (4.50-5.90); Red Cell Distribution Width 13.6 % (11.6-17.2); White Blood Count 10.4 th/mm3 (4.0-11.0)
[2018-03-18 08:01] LABS: Carbon Dioxide 27.7 meq/L (21.0-32.0); Magnesium 1.2 mg/dL (1.5-2.5); Phosphorus 2.2 mg/dL (2.5-4.9); Potassium 3.1 meq/L (3.5-5.1)
[2018-03-18 08:33] LABS: Total Protein 5.9 g/dL (6.4-8.2)
[2018-03-18 08:41] LABS: Calcium 14.7 mg/dL (8.5-10.1)
[2018-03-18] MEDS: Heparin - SQ 10,000 UNITS/ML Vial SQ SCH ×2 (10:02→21:11)
[2018-03-18] MEDS: Sodium Chloride 0.9% 2 ML Flush BID IV.FLUSH SCH ×2 (10:02→21:12)
[2018-03-18] MEDS ORDERED: Potassium Phosphate Inj 15 MMOL in Sodium Chlor 0.9% Inj 150 ML IV.SIG ONE (11:20)
[2018-03-18] MEDS ORDERED: Potassium Chloride 25 MEQ Effervescent Tablet PO ONE (11:30)
[2018-03-18] MEDS: Mag Sulf 1 gm/100 ml Premix 100 ML IV.SIG SCH ×2 (11:37→14:06)
--- NOTE | 2018-03-18 12:17 | P.PNIM ---
Subjective Interval history: The patient said that he finally had a bowel movement. 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 He says he had a good breakfast this morning. He does not like the Ensure shakes. His family was at the bedside. Discussed with nursing. Physical Exam Vital signs: Vital Signs 03/17/18 13:10 03/17/18 13:25 03/17/18 13:55 Temperature 98.3 F 98.6 F 97.9 F Pulse Rate 84 82 93 H Respiratory Rate 18 20 20 Blood Pressure 182/90 H 181/93 H Pulse Oximetry 92 L 93 L 92 L 03/17/18 14:25 03/17/18 14:55 03/17/18 15:25 Temperature 98.4 F 98.4 F Pulse Rate 86 83 83 Respiratory Rate 18 20 20 Blood Pressure 109/66 142/71 H 168/82 H Pulse Oximetry 94 L 95 03/17/18 16:00 03/17/18 20:00 03/18/18 00:00 Temperature 98.1 F 98.3 F Pulse Rate 79 89 93 H Respiratory Rate 20 20 20 Blood Pressure 155/84 H 134/72 158/79 H Pulse Oximetry 92 L 94 L 92 L 03/18/18 04:00 03/18/18 07:38 03/18/18 08:00 Temperature 98.2 F Pulse Rate 83 85 87 Respiratory Rate 20 18 Blood Pressure 120/60 135/71 Pulse Oximetry 92 L 92 L Intake & Output 03/17/18 03/18/18 03/18/18 18:59 06:59 18:59 Intake Total 2240 / 2240 1320 / 1320 1000 / 1000 Output Total 100 / 100 400 / 400 Balance 2140 / 2140 920 / 920 1000 / 1000 Weight 82 kg Intake: IV 2000 / 1999 1200 / 1200 1000 / 1000 NS Inj 1,000 ML @ 200 mls/hr IV 2000 / 2000 1200 / 1200 1000 / 1000 .CONT .Q5H [facility] Rx#:[id number] Oral 240 / 240 120 / 120 Output: Urine 100 / 100 400 / 400 Other: # Voids 2 Date of Last Bowel Movement 03/14/18 Narrative: General: No distress HEENT: Anicteric sclera; Dry oral mucosa Neck: supple no JVD no bruit Chest: lungs bilateral breath sounds equal no rales no wheezes Heart: Regular rhythm Abdomen: soft, nontender with good bowel sounds, no guarding or rigidity Extremities: no edema Neuro: ANO x3 clear speech cranial nerves grossly intact. motor moves all extremities equally 5/5 on individual muscle testing Results - Labs CBC & Chem 7: 03/18/18 06:27 03/18/18 06:27 Laboratory Results - last 24 hr 03/16/18 03/17/18 03/18/18 09:05 19:42 06:27 WBC 10.4 RBC 4.18 L Hgb 13.1 D Hct 37.8 L MCV 90.3 MCH 31.2 MCHC 34.6 RDW 13.6 Plt Count 228 MPV 7.4 Sodium 142 Potassium 3.6 D Chloride 105 Carbon Dioxide 27.6 Anion Gap 9 BUN 39 H Creatinine 1.48 H Estimated GFR 47 L Random Glucose 74 Calcium 14.5 H* Prot Corrected Calcium Ionized Calcium 11.4 H* Phosphorus Magnesium Total Protein 6.1 L 03/18/18 06:27 WBC RBC Hgb Hct MCV MCH MCHC RDW Plt Count MPV Sodium 142 Potassium 3.1 L Chloride 106 Carbon Dioxide 27.7 Anion Gap 8 BUN 37 H Creatinine 1.46 H Estimated GFR 48 L Random Glucose 76 Calcium 14.7 H* Prot Corrected Calcium Ionized Calcium Phosphorus 2.2 L Magnesium 1.2 L Total Protein 5.9 L Microbiology 03/17/18 13:00 Fluid - Other Gram Stain - Final 03/17/18 13:00 Fluid - Other Body Fluid Culture - Preliminary No growth in 24 hours - Imaging Impressions Liver Biopsy CT 03/17/18 00:00 CONCLUSION: 1. Uncomplicated CT guided core biopsy of one of the right hepatic lobe masses. During the biopsy turbid fluid was noted likely relating to necrotic material. A sample of this was sent for culture. Assessment and Plan - Plan 67-year-old male presenting with generalized weakness poor p.o. appetite Acute kidney injury - pre renal secondary to poor p.o.- anorexia,malignancy Hypercalcemia of malignancy calcium level of 16.9 -continue normal saline hydration at 200 cc an hour -received one-time IV pamidronate 60 mg x1. -Recheck CMP in a.m. -encourage po fluids New lung mass/ Liver mets Likely recurrent lung cancer. Liver metastases on CT imaging. Oncology consult appreciated. -liver biopsy pathology pending. -oxygen and nebs as needed. Generalized weakness multifactorial- no focal neuro deficits -PT consult Smoker -counselled extensively Poor p.o. intake Likely secondary to malignancy -Consult dietitian. Start patient on Ensure supplements. Hypokalemia/ Hypomagnesemia Ongoing. -replete and monitor. -telemetry. -ADAT. PPx: Heparin
[2018-03-19] MEDS: Sod Chloride 0.9% Inj 1,000 ML IV.CONT SCH ×5 (05:21→22:05)
[2018-03-19 06:59] LABS: Baso # (Auto) 0.1 th/mm3 (0.0-0.2); Baso % (Auto) 0.5 % (0.0-2.0); Eos # (Auto) 0.3 th/mm3 (0.0-0.4); Eos % (Auto) 3.4 % (0.0-4.0); Hematocrit 37.7 % (39.0-51.0); Hemoglobin 12.8 gm/dL (13.0-17.0); Lymph # (Auto) 0.6 th/mm3 (1.0-4.8); Lymph % (Auto) 6.7 % (9.0-44.0); Mean Corpuscular HGB Conc 33.9 % (32.0-36.0); Mean Corpuscular Hemoglobin 30.7 pg (27.0-34.0); Mean Corpuscular Volume 90.8 fL (80.0-100.0); Mean Platelet Volume 7.3 fL (7.0-11.0); Mono # (Auto) 1.1 th/mm3 (0.0-0.9); Neut # (Auto) 7.6 th/mm3 (1.8-7.7); Neut % (Auto) 78.4 % (16.0-70.0); Platelet Count 207 th/mm3 (150-450); Red Blood Count 4.15 mil/mm3 (4.50-5.90); Red Cell Distribution Width 13.7 % (11.6-17.2); White Blood Count 9.6 th/mm3 (4.0-11.0)
[2018-03-19 07:36] LABS: Carbon Dioxide 27.3 meq/L (21.0-32.0); Magnesium 1.6 mg/dL (1.5-2.5); Phosphorus 1.3 mg/dL (2.5-4.9); Potassium 3.1 meq/L (3.5-5.1)
[2018-03-19 08:10] LABS: Total Protein 5.7 g/dL (6.4-8.2)
[2018-03-19 08:44] LABS: Calcium 12.7 mg/dL (8.5-10.1)
[2018-03-19] MEDS: Heparin - SQ 10,000 UNITS/ML Vial SQ SCH ×2 (09:07→20:14)
[2018-03-19] MEDS: Sodium Chloride 0.9% 2 ML Flush BID IV.FLUSH SCH ×2 (09:13→20:18)
--- NOTE | 2018-03-19 10:11 | P.PNONC ---
Subjective Interval history: Afebrile Patient currently requesting a breathing treatment Denies any pain Reports a poor appetite Objective Vital Signs/Intake & Output: Vital Signs 03/18/18 12:00 03/18/18 16:00 03/18/18 19:59 Temperature 98.4 F 98.4 F Pulse Rate 85 74 82 Respiratory Rate 16 16 Blood Pressure 127/73 120/69 Pulse Oximetry 94 L 94 L 03/18/18 20:00 03/19/18 00:03 03/19/18 00:10 Temperature 98.5 F 98.9 F Pulse Rate 75 82 85 Respiratory Rate 20 21 Blood Pressure 111/62 99/55 L Pulse Oximetry 93 L 93 L 03/19/18 04:00 03/19/18 04:14 03/19/18 07:55 Temperature 98 F 98.1 F Pulse Rate 76 78 73 Respiratory Rate 20 18 Blood Pressure 128/75 127/79 Pulse Oximetry 95 95 Intake & Output 03/18/18 03/19/18 03/19/18 18:59 06:59 18:59 Intake Total 2019 Output Total 50 / 50 Balance 2019 Weight 186 lb 1.122 oz Intake: IV 1200 / 1200 1999 NS Inj 1,000 ML @ 200 mls/hr IV 1000 / 1000 1999 .CONT .Q5H [facility] Rx#:[id number] Magnesium Sulfate 1 gm/D5W 100 200 / 200 ml Premix 100 ML @ 100 mls/hr IV.SIG Q1H [facility] Rx#:[id number] Oral 820 / 820 50 / 50 Output: Urine 50 / 50 Other: # Voids 3 3 Date of Last Bowel Movement 03/18/18 03/18/18 03/19/18 Result Diagrams: 03/19/18 06:06 03/19/18 06:06 Laboratory Results: Laboratory Results - last 24 hr 03/19/18 03/19/18 03/19/18 06:06 06:06 06:06 WBC 9.6 RBC 4.15 L Hgb 12.8 L Hct 37.7 L MCV 90.8 MCH 30.7 MCHC 33.9 RDW 13.7 Plt Count 207 MPV 7.3 Neut % (Auto) 78.4 H Lymph % (Auto) 6.7 L [place] % (Auto) 11.0 H Eos % (Auto) 3.4 Baso % (Auto) 0.5 Neut # (Auto) 7.6 Lymph # (Auto) 0.6 L [place] # (Auto) 1.1 H Eos # (Auto) 0.3 Baso # (Auto) 0.1 WBC Differential . Differential Comment Auto diff final Sodium 143 Potassium 3.1 L Chloride 108 H Carbon Dioxide 27.3 Anion Gap 8 BUN 29 H Creatinine 1.36 H Estimated GFR 52 L Random Glucose 112 H Calcium 12.7 H* D Cancelled Prot Corrected Calcium Cancelled Phosphorus 1.3 L Magnesium 1.6 Total Protein 5.7 L Cancelled Culture Results: Microbiology 03/17/18 13:00 Gram Stain - Final Fluid - Other Body Fluid Culture - Preliminary No growth in 48 hours Medications: Active Medications Generic Name Dose Route Start Last Admin Trade Name Freq PRN Reason Stop Dose Admin Albuterol 1 ampul 03/17/18 16:45 03/19/18 08:49 Duoneb Neb (Prn) NEB 1 ampul Q2HR NEB PRN Administration DYSPNEA Heparin Sodium (Porcine) 5,000 units 03/16/18 21:00 03/19/18 09:07 Heparin Inj SQ 5,000 units Q12HR [facility] Administration Sodium Chloride 500 mls @ 0 mls/hr 03/16/18 10:00 03/16/18 13:08 Ns Inj IV.SIG Infused BOLUS AD[facility] Infusion Wide Open Sodium Chloride 1,000 mls @ 200 mls/hr 03/16/18 12:19 03/19/18 05:21 Ns Inj IV.CONT 200 mls/hr .Q5H [facility] Administration Oxycodone/Acetaminophen 1 tab 03/18/18 11:35 03/18/18 11:46 Percocet 5/325 Mg PO 1 tab Q4H PRN Administration pain 3-10 Sodium Chloride 2 ml 03/16/18 21:00 03/19/18 09:13 Ns Flush IV.FLUSH Not Given BID [facility] Objective Remarks: GENERAL: Chronically ill-appearing older male sitting in chair at bedside. He appears somewhat labored in his breathing at rest. SKIN: Warm and dry. Ready appearance HEAD: Normocephalic. EYES: No scleral icterus. No injection or drainage. NECK: Supple, trachea midline. No JVD or lymphadenopathy. CARDIOVASCULAR: Regular rate and rhythm without murmurs. RESPIRATORY: Breath sounds equal bilaterally. No accessory muscle use. GASTROINTESTINAL: Abdomen soft, non-tender, nondistended. EXTREMITIES: No cyanosis, or edema. MUSCULOSKELETAL: Adequate muscle tone. NEUROLOGICAL: No obvious focal deficit. Awake, alert, and oriented x3. 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 He was treated with concurrent chemotherapy and radiation. He was followed with serial imaging and had no evidence of recurrent disease but was lost to follow- up after 2013. The patient was admitted to the ER with shortness of breath and CT scan of the chest showed suspected left hilar mass and adenopathy. He has had a CT guided liver biopsy after he was found to have innumerable lesions consistent with metastatic disease to the liver. 1. Patient is status post liver biopsy on March 17. Anticipate results early next week. 2. Further recommendations to follow 3. Continue supportive care in the interim
[2018-03-19] MEDS: Potassium Phosphate 500 MG Soluble Tablet PO SCH ×2 (11:51→20:14)
--- NOTE | 2018-03-19 16:24 | P.PNIM ---
Subjective Interval history: The patient was resting in bed. He said that he was still constipated. He was watching football. He had no acute complaints. Discussed with nursing. Physical Exam Vital signs: Vital Signs 03/18/18 19:59 03/18/18 20:00 03/19/18 00:03 Temperature 98.5 F 98.9 F Pulse Rate 82 75 82 Respiratory Rate 20 21 Blood Pressure 111/62 99/55 L Pulse Oximetry 93 L 93 L 03/19/18 00:10 03/19/18 04:00 03/19/18 04:14 Temperature 98 F Pulse Rate 85 76 78 Respiratory Rate 20 Blood Pressure 128/75 Pulse Oximetry 95 03/19/18 07:55 03/19/18 08:00 03/19/18 11:59 Temperature 98.1 F 98.5 F Pulse Rate 73 76 82 Respiratory Rate 18 22 Blood Pressure 127/79 149/64 H Pulse Oximetry 95 95 95 03/19/18 12:00 03/19/18 15:48 Temperature 99.1 F Pulse Rate 79 86 Respiratory Rate 22 Blood Pressure 140/74 Pulse Oximetry 96 Intake & Output 03/18/18 03/19/18 03/19/18 18:59 06:59 18:59 Intake Total 2019 1000 / 1000 Output Total 50 / 50 Balance 2019 1000 / 1000 Weight 84.4 kg Intake: IV 1200 / 1200 1999 / 1999 1000 / 1000 NS Inj 1,000 ML @ 200 mls/hr IV 1000 / 1000 1999 / 2000 1000 / 1000 .CONT .Q5H [facility] Rx#:[id number] Magnesium Sulfate 1 gm/D5W 100 200 / 200 ml Premix 100 ML @ 100 mls/hr IV.SIG Q1H [facility] Rx#:[id number] Oral 820 / 820 50 / 50 Output: Urine 50 / 50 Other: # Voids 3 3 Date of Last Bowel Movement 03/18/18 03/18/18 03/19/18 Narrative: General: No distress HEENT: Anicteric sclera; Dry oral mucosa Neck: supple no JVD no bruit Chest: lungs bilateral breath sounds equal no rales no wheezes Heart: Regular rhythm Abdomen: soft, nontender with good bowel sounds, no guarding or rigidity Extremities: no edema Neuro: ANO x3 clear speech cranial nerves grossly intact. motor moves all extremities equally 5/5 on individual muscle testing Results - Labs CBC & Chem 7: 03/19/18 06:06 03/19/18 06:06 Laboratory Results - last 24 hr 03/19/18 03/19/18 03/19/18 06:06 06:06 06:06 WBC 9.6 RBC 4.15 L Hgb 12.8 L Hct 37.7 L MCV 90.8 MCH 30.7 MCHC 33.9 RDW 13.7 Plt Count 207 MPV 7.3 Neut % (Auto) 78.4 H Lymph % (Auto) 6.7 L [place] % (Auto) 11.0 H Eos % (Auto) 3.4 Baso % (Auto) 0.5 Neut # (Auto) 7.6 Lymph # (Auto) 0.6 L [place] # (Auto) 1.1 H Eos # (Auto) 0.3 Baso # (Auto) 0.1 WBC Differential . Differential Comment Auto diff final Sodium 143 Potassium 3.1 L Chloride 108 H Carbon Dioxide 27.3 Anion Gap 8 BUN 29 H Creatinine 1.36 H Estimated GFR 52 L Random Glucose 112 H Calcium 12.7 H* D Cancelled Prot Corrected Calcium Cancelled Phosphorus 1.3 L Magnesium 1.6 Total Protein 5.7 L Cancelled Microbiology 03/17/18 13:00 Fluid - Other Gram Stain - Final 03/17/18 13:00 Fluid - Other Body Fluid Culture - Preliminary No growth in 48 hours Assessment and Plan - Plan 67-year-old male presenting with generalized weakness poor p.o. appetite Acute kidney injury - pre renal secondary to poor p.o.- anorexia,malignancy Hypercalcemia of malignancy calcium level of 16.9 -continue normal saline hydration at 200 cc an hour -received IV pamidronate. -Recheck CMP in a.m. -encourage po fluids New lung mass/ Liver mets Likely recurrent lung cancer. Liver metastases on CT imaging. Oncology consult appreciated. -liver biopsy pathology pending. -oxygen and nebs as needed. -smoking cessation. Generalized weakness multifactorial- no focal neuro deficits -PT consult. Rehab recommended. Consult case management. Poor p.o. intake Likely secondary to malignancy -Consult dietitian. Start patient on Ensure supplements. Hypokalemia/ Hypomagnesemia/ Hypophosphatemia Ongoing. Exacerbated by poor PO intake. -replete and monitor. -telemetry. -ADAT. PPx: Heparin
[2018-03-19] MEDS: Polyethylene Glycol 3350 17 GM Packet PO SCH (17:06)
[2018-03-20] MEDS: Sod Chloride 0.9% Inj 1,000 ML IV.CONT SCH ×2 (03:09→08:57)
[2018-03-20 07:12] LABS: Baso # (Auto) 0.1 th/mm3 (0.0-0.2); Baso % (Auto) 0.8 % (0.0-2.0); Eos # (Auto) 0.4 th/mm3 (0.0-0.4); Eos % (Auto) 3.5 % (0.0-4.0); Hematocrit 36.5 % (39.0-51.0); Hemoglobin 12.6 gm/dL (13.0-17.0); Lymph # (Auto) 0.8 th/mm3 (1.0-4.8); Lymph % (Auto) 7.9 % (9.0-44.0); Mean Corpuscular HGB Conc 34.5 % (32.0-36.0); Mean Corpuscular Hemoglobin 30.9 pg (27.0-34.0); Mean Corpuscular Volume 89.6 fL (80.0-100.0); Mean Platelet Volume 6.9 fL (7.0-11.0); Mono # (Auto) 1.4 th/mm3 (0.0-0.9); Mono % (Auto) 13.3 % (0.0-8.0); Neut # (Auto) 7.6 th/mm3 (1.8-7.7); Neut % (Auto) 74.5 % (16.0-70.0); Platelet Count 198 th/mm3 (150-450); Red Blood Count 4.07 mil/mm3 (4.50-5.90); Red Cell Distribution Width 13.6 % (11.6-17.2); White Blood Count 10.2 th/mm3 (4.0-11.0)
[2018-03-20 07:40] LABS: Calcium 10.4 mg/dL (8.5-10.1); Magnesium 1.3 mg/dL (1.5-2.5); Potassium 3.5 meq/L (3.5-5.1); Total Protein 5.6 g/dL (6.4-8.2)
[2018-03-20] MEDS: Heparin - SQ 10,000 UNITS/ML Vial SQ SCH ×2 (08:57→21:46)
[2018-03-20] MEDS: Mag Sulf 1 gm/100 ml Premix 100 ML IV.SIG SCH ×2 (08:57→10:15)
[2018-03-20] MEDS: Sodium Chloride 0.9% 2 ML Flush BID IV.FLUSH SCH ×2 (08:58→21:46)
[2018-03-20] MEDS: Potassium Phosphate 500 MG Soluble Tablet PO SCH ×2 (08:58→21:46)
[2018-03-20] MEDS: Polyethylene Glycol 3350 17 GM Packet PO SCH (08:58)
[2018-03-20] MEDS ORDERED: Potassium Chloride 25 MEQ Effervescent Tablet PO ONE (09:48)
--- NOTE | 2018-03-20 10:38 | P.PNIM ---
Subjective Interval history: The patient described multiple achy joints. He says he is constipated and has only been having minor bowel movements. He did say he had his biggest meal yet. Physical Exam Vital signs: Vital Signs 03/19/18 11:59 03/19/18 12:00 03/19/18 15:48 Temperature 98.5 F 99.1 F Pulse Rate 82 79 86 Respiratory Rate 22 22 Blood Pressure 149/64 H 140/74 Pulse Oximetry 95 96 03/19/18 16:00 03/19/18 19:32 03/19/18 19:58 Temperature 98.5 F Pulse Rate 81 86 100 H Respiratory Rate 18 Blood Pressure 159/74 H Pulse Oximetry 95 03/20/18 00:08 03/20/18 00:11 03/20/18 03:05 Temperature 98.5 F 98.2 F Pulse Rate 81 80 81 Respiratory Rate 20 18 Blood Pressure 136/74 149/77 H Pulse Oximetry 96 97 03/20/18 04:12 03/20/18 08:00 Temperature 98.0 F Pulse Rate 78 83 Respiratory Rate 18 Blood Pressure 151/85 H Pulse Oximetry 97 Intake & Output 03/19/18 03/20/18 03/20/18 18:59 06:59 18:59 Intake Total 3720 / 3720 2480 / 2480 1100 / 1100 Output Total 800 / 800 Balance 3720 / 3720 1680 / 1680 1100 / 1100 Weight 89 kg Intake: IV 1999 / 1999 1100 / 1100 NS Inj 1,000 ML @ 200 mls/hr IV 1999 / 1999 1000 / 1000 .CONT .Q5H [facility] Rx#:[id number] Magnesium Sulfate 1 gm/D5W 100 100 / 100 ml Premix 100 ML @ 100 mls/hr IV.SIG Q1H [facility] Rx#:[id number] Oral 1720 / 1720 480 / 480 Output: Urine 800 / 800 Other: # Voids 8 2 # Urine Diapers 4 Date of Last Bowel Movement 03/19/18 03/19/18 03/19/18 # Bowel Movements 2 Narrative: General: No distress HEENT: Anicteric sclera; Dry oral mucosa Neck: supple no JVD no bruit Chest: bilateral breath sounds equal, no rales or wheezes Heart: Regular rhythm, no murmurs Abdomen: soft, nontender with good bowel sounds, no guarding or rigidity Extremities: Trace lower extremity edema Neuro: ANO x3 clear speech cranial nerves grossly intact. motor moves all extremities equally 5/5 on individual muscle testing Results - Labs CBC & Chem 7: 03/20/18 06:35 03/20/18 06:35 Laboratory Results - last 24 hr 03/20/18 03/20/18 06:35 06:35 WBC 10.2 RBC 4.07 L Hgb 12.6 L Hct 36.5 L MCV 89.6 MCH 30.9 MCHC 34.5 RDW 13.6 Plt Count 198 MPV 6.9 L Neut % (Auto) 74.5 H Lymph % (Auto) 7.9 L [place] % (Auto) 13.3 H Eos % (Auto) 3.5 Baso % (Auto) 0.8 Neut # (Auto) 7.6 Lymph # (Auto) 0.8 L [place] # (Auto) 1.4 H Eos # (Auto) 0.4 Baso # (Auto) 0.1 WBC Differential . Differential Comment Auto diff final Sodium 143 Potassium 3.5 Chloride 109 H Carbon Dioxide 25.0 Anion Gap 9 BUN 19 H Creatinine 1.16 Estimated GFR 62 L Random Glucose 92 Calcium 10.4 H D Phosphorus 1.0 L Magnesium 1.3 L Total Bilirubin 2.0 H Direct Bilirubin 1.5 H Indirect Bilirubin 0.5 AST 73 H ALT 40 Alkaline Phosphatase 312 H Total Protein 5.6 L Albumin 2.0 L Microbiology 03/17/18 13:00 Fluid - Other Gram Stain - Final 03/17/18 13:00 Fluid - Other Body Fluid Culture - Final No growth in 72 hours (aerobically and anaerobically ) Assessment and Plan - Plan 67-year-old male presenting with generalized weakness poor p.o. appetite Acute kidney injury - pre renal secondary to poor p.o.- anorexia,malignancy Hypercalcemia of malignancy calcium level of 16.9 -switch IVFs to D5 1/2 NS at 125 ml/hr. -received IV pamidronate. -Recheck CMP in a.m. -encourage po fluids New lung mass/ Liver mets Likely recurrent lung cancer. Liver metastases on CT imaging. Oncology consult appreciated. -liver biopsy pathology pending. -oxygen and nebs as needed. -smoking cessation. -pain control. Generalized weakness multifactorial- no focal neuro deficits -PT consult. Rehab recommended. Consult case management. Poor p.o. intake Likely secondary to malignancy -Consult dietitian. Start patient on Ensure supplements. Hypokalemia/ Hypomagnesemia/ Hypophosphatemia Ongoing. Exacerbated by poor PO intake. -replete and monitor. -telemetry. -ADAT. Constipation On Miralax daily. -add lactulose. PPx: Heparin
[2018-03-20] MEDS: Dextrose 5%/NaCl 0.45% Inj 1,000 ML IV.CONT SCH ×2 (11:39→20:05)
[2018-03-21] MEDS: Dextrose 5%/NaCl 0.45% Inj 1,000 ML IV.CONT SCH ×5 (02:52→22:36)
[2018-03-21 06:53] LABS: Carbon Dioxide 25.9 meq/L (21.0-32.0); Magnesium 1.4 mg/dL (1.5-2.5); Phosphorus 1.2 mg/dL (2.5-4.9); Potassium 3.1 meq/L (3.5-5.1)
[2018-03-21] MEDS: Heparin - SQ 10,000 UNITS/ML Vial SQ SCH ×3 (09:56→23:19)
[2018-03-21] MEDS: Sodium Chloride 0.9% 2 ML Flush BID IV.FLUSH SCH ×2 (09:57→22:37)
[2018-03-21] MEDS: Polyethylene Glycol 3350 17 GM Packet PO SCH (09:57)
--- NOTE | 2018-03-21 10:34 | P.PNONC ---
Subjective Interval history: Patient resting comfortably in bed, reports that he was ambulating in the halls with physical therapy today. He states he tolerated this well. He complains of some joint achiness and mild discomfort at biopsy site. Liver biopsy results pending. Objective Vital Signs/Intake & Output: Vital Signs 03/20/18 11:43 03/20/18 12:00 03/20/18 15:34 Temperature 98 F 98.1 F Pulse Rate 75 83 75 Respiratory Rate 20 22 Blood Pressure 100/57 L 106/56 L Pulse Oximetry 96 97 03/20/18 16:00 03/20/18 20:01 03/20/18 20:06 Temperature 98.3 F Pulse Rate 75 111 H 100 H Respiratory Rate 28 H Blood Pressure 159/84 H Pulse Oximetry 96 03/20/18 23:50 03/21/18 00:04 03/21/18 03:14 Temperature 98.6 F 98.4 F Pulse Rate 83 83 84 Respiratory Rate 18 18 Blood Pressure 118/69 118/60 Pulse Oximetry 96 95 03/21/18 04:00 03/21/18 08:00 Temperature 98.4 F Pulse Rate 82 91 H Respiratory Rate 18 Blood Pressure 136/71 Pulse Oximetry 95 Intake & Output 03/20/18 03/21/18 03/21/18 18:59 06:59 18:59 Intake Total 2900 / 2900 2240 / 2240 Output Total 1100 / 1100 Balance 2900 / 2900 1140 / 1140 Weight 88.4 kg Intake: IV 1600 / 1600 2000 / 2000 D5W/1/2 NS Inj 1,000 ML @ 125 2000 / 2000 mls/hr IV.CONT .Q8H [facility] Rx#: [id number] NS Inj 1,000 ML @ 200 mls/hr IV 1400 / 1400 .CONT .Q5H [facility] Rx#:[id number] Magnesium Sulfate 1 gm/D5W 100 200 / 200 ml Premix 100 ML @ 100 mls/hr IV.SIG Q1H [facility] Rx#:[id number] Oral 1300 / 1300 240 / 240 Output: Urine 1100 / 1100 Other: # Voids 2 # Urine Diapers 6 Date of Last Bowel Movement 03/20/18 03/20/18 03/20/18 # Bowel Movements 1 Result Diagrams: 03/20/18 06:35 03/21/18 05:51 Laboratory Results: Laboratory Results - last 24 hr 03/21/18 05:51 Sodium 139 Potassium 3.1 L Chloride 105 Carbon Dioxide 25.9 Anion Gap 8 BUN 15 Creatinine 1.08 Estimated GFR 68 L Random Glucose 119 H Calcium 10.0 Phosphorus 1.2 L Magnesium 1.4 L Culture Results: Microbiology 03/17/18 13:00 Gram Stain - Final Fluid - Other Body Fluid Culture - Final No growth in 72 hours (aerobically and anaerobically) Medications: Active Medications Generic Name Dose Route Start Last Admin Trade Name Freq PRN Reason Stop Dose Admin Albuterol 1 ampul 03/17/18 16:45 03/19/18 16:15 Duoneb Neb (Prn) NEB 1 ampul Q2HR [facility] PRN Administration DYSPNEA Heparin Sodium (Porcine) 5,000 units 03/16/18 21:00 03/21/18 09:56 Heparin Inj SQ 5,000 units Q12HR [facility] Administration Sodium Chloride 500 mls @ 0 mls/hr 03/16/18 10:00 03/16/18 13:08 Ns Inj IV.SIG Infused BOLUS [facility] Infusion Wide Open Dextrose/Sodium Chloride 1,000 mls @ 125 mls/hr 03/20/18 10:45 03/21/18 04:46 D5w/1/2 Ns Inj IV.CONT 125 mls/hr .Q8H [facility] Administration Oxycodone/Acetaminophen 1 tab 03/18/18 11:35 03/20/18 09:28 Percocet 5/325 Mg PO 1 tab Q4H PRN Administration PAIN 3-5; IF UABLE TO TAKE PO Polyethylene Glycol 17 gm 03/19/18 16:30 03/21/18 09:57 Miralax PO 17 gm DAILY [facility] Administration Potassium Phosphate 500 mg 03/20/18 09:00 03/20/18 21:46 K-Phos Original PO 500 mg BID [facility] Administration Sodium Chloride 2 ml 03/16/18 21:00 03/21/18 09:57 Ns Flush IV.FLUSH 2 ml BID [facility] Administration Objective Remarks: GENERAL: Well-nourished, well-developed elderly male patient, in no acute distress. SKIN: Warm and dry. HEAD: Normocephalic. EYES: No scleral icterus. No injection or drainage. NECK: Supple, trachea midline. CARDIOVASCULAR: Regular rate and rhythm without murmurs. RESPIRATORY: Breath sounds equal bilaterally. No accessory muscle use. GASTROINTESTINAL: Abdomen soft, non-tender, nondistended. 2 x 2 guaze to right flank area dry/intact, no echymosis, swelling or drainage. EXTREMITIES: No cyanosis, or edema. MUSCULOSKELETAL: Adequate muscle tone. NEUROLOGICAL: No obvious focal deficit. Awake, alert, and oriented x3. PSYCHIATRIC: Appropriate mood and affect; insight and judgment normal. 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 He was treated with concurrent chemotherapy and radiation. He was followed with serial imaging and had no evidence of recurrent disease but was lost to follow- up after 2013. The patient was admitted to the ER with shortness of breath and CT scan of the chest showed suspected left hilar mass and adenopathy. He has had a CT guided liver biopsy after he was found to have innumerable lesions consistent with metastatic disease to the liver. 1. Patient is status post liver biopsy on March 17. Await pathology results. 2. Hypercalcemia, improved, status post pamidronate, continues on D5 1/2 NS. 3. Continue supportive care. - Attending Statement The exam, history, and the medical decision-making described in the above note were completed with the assistance of the mid-level provider. I reviewed and agree with the findings presented. I attest that I had a [id number] encounter with the patient on the same day, and personally performed and documented my assessment and findings in the medical record. Patient seen and examined. Sister at bedside. They are discussing options to go to rehab versus home. The preferring to go to rehab or nursing home facility as no one can help take care of Mr. Edward at home. His sister recently had a knee done and is not quite ambulatory as yet. CT-guided liver biopsy revealed squamous cell cancer. We discussed the diagnosis is confirmed. We will check for MSI and PDL 1. We will see if he has high mutational burden and would benefit from first-line immunotherapy. Standard of care would be to offer him a [place] doublet and use immunotherapy as second line. His hypercalcemia is resolved. His renal failure has resolved. His potassium magnesium will be replaced the. Patient can be discharged from oncology standpoint to follow-up in clinic. He prefers to come to our [facility] [place] [facility]. We discussed the issue of port placement. Will consult with general surgery for port placement. His previous port was placed by Dr. Teague when he was here at [place].
--- NOTE | 2018-03-21 14:26 | P.PNIM ---
Subjective Interval history: The patient was resting in bed. He said he feels better. He does endorse lower extremity swelling and discomfort. He says he plans on quitting smoking cigarettes. The patient says his constipation resolved. Physical Exam Vital signs: Vital Signs 03/20/18 15:34 03/20/18 16:00 03/20/18 20:01 Temperature 98.1 F Pulse Rate 75 75 111 H Respiratory Rate 22 Blood Pressure 106/56 L Pulse Oximetry 97 03/20/18 20:06 03/20/18 23:50 03/21/18 00:04 Temperature 98.3 F 98.6 F Pulse Rate 100 H 83 83 Respiratory Rate 28 H 18 Blood Pressure 159/84 H 118/69 Pulse Oximetry 96 96 03/21/18 03:14 03/21/18 04:00 03/21/18 08:00 Temperature 98.4 F 98.4 F Pulse Rate 84 82 91 H Respiratory Rate 18 18 Blood Pressure 118/60 136/71 Pulse Oximetry 95 95 03/21/18 12:00 Temperature 98.9 F Pulse Rate 90 Respiratory Rate 18 Blood Pressure 164/82 H Pulse Oximetry 98 Intake & Output 03/20/18 03/21/18 03/21/18 18:59 06:59 18:59 Intake Total 2900 / 2900 2240 / 2240 Output Total 1100 / 1100 Balance 2900 / 2900 1140 / 1140 Weight 88.4 kg Intake: IV 1600 / 1600 2000 / 2000 D5W/1/2 NS Inj 1,000 ML @ 125 2000 / 2000 mls/hr IV.CONT .Q8H [facility] Rx#: [id number] NS Inj 1,000 ML @ 200 mls/hr IV 1400 / 1400 .CONT .Q5H [facility] Rx#:[id number] Magnesium Sulfate 1 gm/D5W 100 200 / 200 ml Premix 100 ML @ 100 mls/hr IV.SIG Q1H [facility] Rx#:[id number] Oral 1300 / 1300 240 / 240 Output: Urine 1100 / 1100 Other: # Voids 2 # Urine Diapers 6 Date of Last Bowel Movement 03/20/18 03/20/18 03/20/18 # Bowel Movements 1 Narrative: General: No distress HEENT: Anicteric sclera; Dry oral mucosa Neck: supple no JVD no bruit Chest: Mild wheezing Heart: Regular rhythm, no murmurs Abdomen: soft, nontender with good bowel sounds, no guarding or rigidity Extremities: 1+ lower extremity edema Neuro: ANO x3 clear speech cranial nerves grossly intact. motor moves all extremities equally 5/5 Results - Labs CBC & Chem 7: 03/20/18 06:35 03/21/18 05:51 Laboratory Results - last 24 hr 03/21/18 05:51 Sodium 139 Potassium 3.1 L Chloride 105 Carbon Dioxide 25.9 Anion Gap 8 BUN 15 Creatinine 1.08 Estimated GFR 68 L Random Glucose 119 H Calcium 10.0 Phosphorus 1.2 L Magnesium 1.4 L Assessment and Plan - Plan Acute kidney injury/ Hypercalcemia of malignancy Improved with IVFs. -continue D5 1/2 NS at 125 ml/hr. -received IV pamidronate. -Recheck BMP in a.m. New lung mass/ Liver mets Likely recurrent lung cancer. Liver metastases on CT imaging. Oncology consult appreciated. -liver biopsy pathology pending. -oxygen and nebs as needed. -smoking cessation. -pain control. Generalized weakness Multifactorial. No focal neuro deficits. -PT consult. Rehab recommended. Consulted case management. Poor p.o. intake Likely secondary to malignancy -Consult dietitian. Start patient on Ensure supplements. Hypokalemia/ Hypomagnesemia/ Hypophosphatemia Ongoing. Exacerbated by poor PO intake. -replete PO and monitor. -telemetry. -ADAT. Constipation On Miralax daily. -add lactulose. Resolved. PPx: Heparin
[2018-03-21] MEDS: Mag Sulf 1 gm/100 ml Premix 100 ML IV.SIG SCH ×2 (15:01→19:06)
[2018-03-21] MEDS: Potassium Phosphate 500 MG Soluble Tablet PO SCH ×2 (17:27→22:33)
[2018-03-21] MEDS: oxyCODONE/Acetaminophen 10/325 Tablet PO PRN (20:39)
[2018-03-21] MEDS: MAGNESIUM SULFATE IV.SIG ONE ×2 (22:30→22:37)
[2018-03-21] MEDS: POTASSIUM CHLORIDE IV.SIG ONE ×2 (22:30→22:37)
[2018-03-21] MEDS: [UNRECOGNIZED DRUG - OTHER] IV.SIG ONE ×2 (22:30→22:37)
[2018-03-22] MEDS: oxyCODONE/Acetaminophen 10/325 Tablet PO PRN ×2 (01:54→19:06)
[2018-03-22 07:18] LABS: Calcium 9.8 mg/dL (8.5-10.1); Phosphorus 1.7 mg/dL (2.5-4.9); Potassium 3.7 meq/L (3.5-5.1)
--- NOTE | 2018-03-22 08:34 | P.PNONC ---
Subjective Interval history: Afebrile. Patient resting comfortably in bed, awakens easily to voice. No complaints at this time. Currently n.p.o. for port placement today. Objective Vital Signs/Intake & Output: Vital Signs 03/21/18 12:00 03/21/18 15:32 03/21/18 16:00 Temperature 98.9 F 98.7 F Pulse Rate 84 82 80 Respiratory Rate 18 18 18 Blood Pressure 164/82 H 131/70 Pulse Oximetry 98 96 03/21/18 19:04 03/21/18 20:08 03/21/18 20:41 Temperature 98.9 F Pulse Rate 80 103 H 92 H Respiratory Rate 16 18 Blood Pressure 121/72 Pulse Oximetry 96 03/21/18 23:22 03/22/18 00:06 03/22/18 04:00 Temperature 98.7 F 98 F Pulse Rate 80 83 77 Respiratory Rate 18 16 Blood Pressure 99/54 L 102/58 L Pulse Oximetry 95 97 03/22/18 07:58 03/22/18 08:00 Temperature Pulse Rate 87 75 Respiratory Rate 18 Blood Pressure Pulse Oximetry Intake & Output 03/21/18 03/22/18 03/22/18 18:59 06:59 18:59 Intake Total 1100 / 1100 1265 / 1265 Output Total 200 / 200 800 / 800 Balance 900 / 900 465 / 465 Weight 85.8 kg Intake: IV 1100 / 1100 365 / 365 D5W/1/2 NS Inj 1,000 ML @ 125 1000 / 1000 mls/hr IV.CONT .Q8H [facility] Rx#: [id number] Magnesium Sulfate 1 gm/D5W 100 100 / 100 100 / 100 ml Premix 100 ML @ 100 mls/hr IV.SIG Q1H [facility] Rx#:[id number] KCl Inj 20 MEQ Magnesium 265 / 265 Sulfate Inj 1 GM In D5W/1/2 NS Inj 250 ML @ 50 mls/hr IV.SIG ONCE ONE Rx#:[id number] Oral 900 / 900 Output: Urine 200 / 200 800 / 800 Other: # Voids 8 Date of Last Bowel Movement 03/20/18 03/21/18 # Bowel Movements 1 Result Diagrams: 03/23/18 03:27 03/23/18 03:27 Laboratory Results: Laboratory Results - last 24 hr 03/22/18 05:11 Sodium 139 Potassium 3.7 Chloride 105 Carbon Dioxide 25.0 Anion Gap 9 BUN 12 Creatinine 1.05 Estimated GFR 70 L Random Glucose 106 Calcium 9.8 Phosphorus 1.7 L Magnesium 2.0 D Culture Results: Microbiology 03/17/18 13:00 Gram Stain - Final Fluid - Other Body Fluid Culture - Final No growth in 72 hours (aerobically and anaerobically) Medications: Active Medications Generic Name Dose Route Start Last Admin Trade Name Freq PRN Reason Stop Dose Admin Albuterol 1 ampul 03/17/18 16:45 03/19/18 16:15 Duoneb Neb (Prn) NEB 1 ampul Q2HR NEB PRN Administration DYSPNEA Albuterol 1 ampul 03/21/18 20:00 03/22/18 07:59 Duoneb Neb (Roxanne) NEB 1 ampul Q6HR WHILE AWAKE NEB ROXANNE Administration Heparin Sodium (Porcine) 5,000 units 03/16/18 21:00 03/21/18 23:19 Heparin Inj SQ 5,000 units Q12HR ROX[facility] Administration Sodium Chloride 500 mls @ 0 mls/hr 03/16/18 10:00 03/16/18 13:08 Ns Inj IV.SIG Infused BOLUS [facility] Infusion Wide Open Dextrose/Sodium Chloride 1,000 mls @ 125 mls/hr 03/20/18 10:45 03/21/18 22:36 D5w/1/2 Ns Inj IV.CONT Not Given .Q8H [facility] Oxycodone/Acetaminophen 1 tab 03/18/18 11:35 03/20/18 09:28 Percocet 5/325 Mg PO 1 tab Q4H PRN Administration PAIN 3-5; IF UABLE TO TAKE PO Oxycodone/Acetaminophen 1 tab 03/20/18 10:30 03/22/18 01:54 Percocet 10/325 Mg PO 1 tab Q4H PRN Administration pain 6-10 Polyethylene Glycol 17 gm 03/19/18 16:30 03/21/18 09:57 Miralax PO 17 gm DAILY ROX[facility] Administration Potassium Phosphate 500 mg 03/20/18 09:00 03/21/18 22:33 K-Phos Original PO 500 mg BID [facility] Administration Sodium Chloride 2 ml 03/16/18 21:00 03/21/18 22:37 Ns Flush IV.FLUSH Not Given BID [facility] Objective Remarks: GENERAL: Well-nourished, well-developed elderly male patient, in no acute distress. SKIN: Warm and dry. HEAD: Normocephalic. EYES: No scleral icterus. No injection or drainage. NECK: Supple, trachea midline. CARDIOVASCULAR: +S1/S2 RESPIRATORY: Breath sounds equal bilaterally. Nonlabored at rest. GASTROINTESTINAL: Abdomen soft, non-tender, nondistended. EXTREMITIES: No cyanosis, or edema. MUSCULOSKELETAL: Adequate muscle tone. NEUROLOGICAL: No obvious focal deficit. Awake, alert, and oriented x3. PSYCHIATRIC: Appropriate mood and affect; insight and judgment normal. 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 He was treated with concurrent chemotherapy and radiation. He was followed with serial imaging and had no evidence of recurrent disease but was lost to follow- up after 2013. The patient was admitted to the ER with shortness of breath and CT scan of the chest showed suspected left hilar mass and adenopathy. He has had a CT guided liver biopsy after he was found to have innumerable lesions consistent with metastatic disease to the liver. 1. Status post liver biopsy on March 17. 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 Patient aware of results. 2. Hypercalcemia, improved, status post pamidronate, continues on D5 1/2 NS. 3. Plan for port placement today and then patient may be discharged from an oncology standpoint, home or to rehab, and will follow up with in the outpatient clinic. 4. Patient aware of the plan, all questions answered. - Attending Statement Patient discussed. Agree with above.
[2018-03-22] MEDS: Polyethylene Glycol 3350 17 GM Packet PO SCH (09:46)
[2018-03-22] MEDS: Heparin - SQ 10,000 UNITS/ML Vial SQ SCH (09:47)
--- NOTE | 2018-03-22 09:59 | P.CONGS ---
HPI Gen Surgery Consult Note Consult date: 03/22/18 Reason for consult: other (Infusaport placement) Requesting physician: Vickie Boyle Narrative: This is a 67 year old male with a past medical history of Steward's esophagus, hypertension, emphysema and squamous cell carcinoma to T9 s/p chemotherapy and radiation in 2010. He arrived to the ED with complaints of progressive shortness of breath, weight loss and was found to have a a LEFT mid lung mass as well as innumerable liver metastatic. A liver biopsy of March 17 revealed metastatic poorly differential squamous cell carcinoma. It is unclear if the lung cancer is a second primary source vs reoccurrence of squamous cell carcinoma. Dr. Boyle plans to start chemotherapy. A General Surgery consultation has been requested for Infusaport placement. Review of Systems All other systems reviewed negative except as stated in HPI Constitutional: Denies body ache(s) Eyes: Denies blurry vision Ears, Nose, Mouth, and Throat: Denies dizziness Cardiovascular: Denies chest pain, Denies shortness of breath when lying down Respiratory: Reports cough, Reports shortness of breath with activity, Denies change in phlegm color, Denies chest congestion, Denies coughing up blood, Denies excessive phlegm production, Denies pain on inspiration, Denies pain with cough, Denies shortness of breath, Denies snoring, Denies stridor, Denies wheezing, Denies other Gastrointestinal: Denies abdominal pain, Denies heartburn, Denies nausea Genitourinary: Denies difficulty urinating Skin/Breast: Denies new lesions Neurologic: Denies abnormal speech, Denies seizure-like activity Hematologic/Lymphatic: Denies easy bleeding PMFSH - History History Provided By: Patient - Medical History Medical History: Medical History (Last Updated 03/22/18 @ 10:10 by CHELA Toscano) Barretts esophagus Gout Hypertension Lung cancer Squamous cell carcinoma - Surgical History Surgical History: Surgical History (Last Updated 03/22/18 @ 10:20 by CHELA Toscano) H/O knee surgery History of lung surgery History of removal of Port-a-Cath - Family History Family History: Family History (Last Updated 03/25/18 @ 11:34 by Ramon Valle MD) Other No history of diabetes mellitus No history of hypertension - Tobacco History Second Hand Smoke Exposure: No Tobacco Use In Past 30 Days: Yes Smoking Status: Current every day smoker Tobacco Type: Cigarettes - Alcohol History How Often Do You Have a Drink Containing Alcohol: 2 to 4 times a month - Substance Use History Substance History: No History of Abuse - Immunization History Tetanus Immunization: Unsure Hx Influenza Vaccine This Season: No Medications and Allergies Allergies Allergy/AdvReac Type Severity Reaction Status Date / Time No Known Allergies Allergy Verified 03/16/18 10:07 Home Medications Medication Instructions Recorded Confirmed Type No Known Home Medications 03/16/18 03/16/18 History Active Medications: Active Medications Albuterol (Duoneb Neb (Prn)) 1 ampul NEB Q2HR NEB PRN PRN Reason: DYSPNEA Last Admin: 03/19/18 16:15 Dose: 1 ampul Albuterol (Duoneb Neb (Roxanne)) 1 ampul NEB Q6HR WHILE AWAKE NEB [facility] Last Admin: 03/22/18 07:59 Dose: 1 ampul Clonidine HCl (Catapres) 0.1 mg PO Q6H PRN PRN Reason: SBP> OR = 180, DBP> OR = 100 Heparin Sodium (Porcine) (Heparin Inj) 5,000 units SQ Q12HR [facility] Last Admin: 03/22/18 09:47 Dose: Not Given Sodium Chloride (Ns Inj) 500 mls @ 0 mls/hr IV.SIG BOLUS [facility] Last Infusion: 03/16/18 13:08 Dose: Infused Sodium Chloride (Ns Inj) 500 mls @ 0 mls/hr IV.SIG BOLUS [facility] Dextrose/Sodium Chloride (D5w/1/2 Ns Inj) 1,000 mls @ 125 mls/hr IV.CONT .Q8H [facility] Last Admin: 03/21/18 22:36 Dose: Not Given Oxycodone/Acetaminophen (Percocet 5/325 Mg) 1 tab PO Q4H PRN PRN Reason: PAIN 3-5; IF UABLE TO TAKE PO Last Admin: 03/20/18 09:28 Dose: 1 tab Oxycodone/Acetaminophen (Percocet 10/325 Mg) 1 tab PO Q4H PRN PRN Reason: pain 6-10 Last Admin: 03/22/18 01:54 Dose: 1 tab Polyethylene Glycol (Miralax) 17 gm PO DAILY [facility] Last Admin: 03/22/18 09:46 Dose: Not Given Potassium Phosphate (K-Phos Original) 500 mg PO BID [facility] Last Admin: 03/21/18 22:33 Dose: 500 mg Sodium Chloride (Ns Flush) 2 ml IV.FLUSH PRN PRN PRN Reason: FLUSH AFTER USING IV ACCESS Sodium Chloride (Ns Flush) 2 ml IV.FLUSH BID [facility] Last Admin: 03/21/18 22:37 Dose: Not Given Exam Vital signs: Vital Signs 03/21/18 12:00 03/21/18 15:32 03/21/18 16:00 Temperature 98.9 F 98.7 F Pulse Rate 84 82 80 Respiratory Rate 18 18 18 Blood Pressure 164/82 H 131/70 Pulse Oximetry 98 96 03/21/18 19:04 03/21/18 20:08 03/21/18 20:41 Temperature 98.9 F Pulse Rate 80 103 H 92 H Respiratory Rate 16 18 Blood Pressure 121/72 Pulse Oximetry 96 03/21/18 23:22 03/22/18 00:06 03/22/18 04:00 Temperature 98.7 F 98 F Pulse Rate 80 83 77 Respiratory Rate 18 16 Blood Pressure 99/54 L 102/58 L Pulse Oximetry 95 97 03/22/18 07:58 03/22/18 08:00 Temperature Pulse Rate 87 93 H Respiratory Rate 18 Blood Pressure 127/73 Pulse Oximetry 95 Intake & Output 03/21/18 03/22/18 03/22/18 18:59 06:59 18:59 Intake Total 1100 / 1100 1265 / 1265 Output Total 200 / 200 800 / 800 Balance 900 / 900 465 / 465 Weight 85.8 kg Intake: IV 1100 / 1100 365 / 365 D5W/1/2 NS Inj 1,000 ML @ 125 1000 / 1000 mls/hr IV.CONT .Q8H [facility] Rx#: [id number] Magnesium Sulfate 1 gm/D5W 100 100 / 100 100 / 100 ml Premix 100 ML @ 100 mls/hr IV.SIG Q1H [facility] Rx#:[id number] KCl Inj 20 MEQ Magnesium 265 / 265 Sulfate Inj 1 GM In D5W/1/2 NS Inj 250 ML @ 50 mls/hr IV.SIG ONCE ONE Rx#:[id number] Oral 900 / 900 Output: Urine 200 / 200 800 / 800 Other: # Voids 8 Date of Last Bowel Movement 03/20/18 03/21/18 # Bowel Movements 1 Narrative: GENERAL: 67 year old male resting in bed in no acute distress SKIN: Warm and dry. He does have a faint scar on his RIGHT chest likely from prior Infusaport. HEAD: Atraumatic. Normocephalic. EYES: Pupils equal and round. No scleral icterus. No injection or drainage. ENT: No nasal bleeding or discharge. Mucous membranes pink and moist. NECK: Trachea midline. CARDIOVASCULAR: Regular rate and rhythm. RESPIRATORY: No accessory muscle use. Clear to auscultation. Breath sounds equal bilaterally. Short of breath after talking less than 3 minutes. GASTROINTESTINAL: Abdomen soft, non-tender, nondistended. MUSCULOSKELETAL: Extremities without clubbing, cyanosis, or edema. No obvious deformities. NEUROLOGICAL: Awake and alert. No obvious cranial nerve deficits. Motor grossly within normal limits. Five out of 5 muscle strength in the arms and legs. Normal speech. PSYCHIATRIC: Appropriate mood and affect; insight and judgment normal. Results - Labs 03/23/18 03:27 03/23/18 03:27 Laboratory Results - last 24 hr 03/22/18 05:11 Sodium 139 Potassium 3.7 Chloride 105 Carbon Dioxide 25.0 Anion Gap 9 BUN 12 Creatinine 1.05 Estimated GFR 70 L Random Glucose 106 Calcium 9.8 Phosphorus 1.7 L Magnesium 2.0 D - Imaging Imaging: ITS Impressions Chest X-Ray 03/16/18 08:57 CONCLUSION: Significant change in appearance of the chest. Most recent study I have the PET scan from 10/12/2013 that had shown no recurrent disease. Recurrence is suspected. CT scan is contrast would be of benefit.. Abdomen/Pelvis CT 03/16/18 09:09 CONCLUSION: 1. Innumerable masses scattered throughout the enlarged liver consistent with metastatic disease until proven otherwise. 2. Uncomplicated colonic diverticulosis. 3. Gallbladder sludge. 4. Focal consolidation of the anterior aspect of the left lung base consistent with probable atelectasis. 5. Minimally prominent prostate with central calcifications. 6. Degenerative changes and scoliosis of the thoracolumbar spine. Chest CT 03/16/18 09:32 CONCLUSION: 1. Focal moderate to large alveolar consolidation involving the left mid lung field with probable left hilar mass/adenopathy. The findings are suspicious for neoplasm until proven otherwise. PET/CT scan may be helpful for further evaluation. 2. Innumerable liver masses are noted consistent with probable metastatic disease. 3. Coronary artery calcifications. 4. Degenerative changes and scoliosis of the thoracolumbar spine. Liver Biopsy CT 03/17/18 00:00 CONCLUSION: 1. Uncomplicated CT guided core biopsy of one of the right hepatic lobe masses. During the biopsy turbid fluid was noted likely relating to necrotic material. A sample of this was sent for culture. Assessment and Plan - Assessment (1) Lung mass Code(s): R91.8 - Other nonspecific abnormal finding of lung field Status: Acute Plan: 67 year old male with newly diagnosed lung cancer; metastatic disease to liver -Plan for Infusport placement today at 11AM -NPO -Hold Heparin -Obtain consents -Procedure explained in detail including risks (infection/bleeding/risk of injury to the lung) -All questions answered -Thank you for this consult; We will continue to follow - Plan Discussed Condition With: Dr. Leonard Selby RN Mr. Nagy
[2018-03-22] MEDS ORDERED: Heparin - SQ 10,000 UNITS/ML Vial ONE (10:27)
[2018-03-22] MEDS ORDERED: Bupivacaine/Epinephrine PF Inj 0.5% 30 ML Vial ONE (10:27)
[2018-03-22] MEDS ORDERED: Lidocaine PF 1% Inj 5 ML Syringe OTHER ONE (11:06)
[2018-03-22] MEDS ORDERED: Phenylephrine/NS 1000 MCG/10ML Syringe IV.PUSH ONE (11:06)
--- NOTE | 2018-03-22 11:33 | P.OP ---
- Preoperative Diagnosis (1) Lung mass - Postoperative Diagnosis (1) Lung mass Procedure: left subclavian port placement under fluoroscopy Anesthesia: ADAN Surgeon: Ramon Valle MD Estimated blood loss (mL): 10 Pathology: none sent Operation and Findings: good flush good return
[2018-03-22] MEDS ORDERED: fentaNYL Citrate Inj 100 MCG/2 ML Ampul ONE (12:20)
--- NOTE | 2018-03-22 12:53 | XR ---
EXAM DATE: 03/22/2018 12:03 PM EDT AGE/SEX: 67 years / Male INDICATIONS: Left side port placement. CLINICAL DATA: This is the patient's initial encounter. Patient reports that signs and symptoms have been present for 1 day and indicates a pain score of 0/10. MEDICAL/SURGICAL HISTORY: Carcinoma, lung. Hypertension. liver cancer None. COMPARISON: [facility] [place], CHEST 1V SINGLE AP, 03/16/2018. . FINDINGS: Status post placement of a left-sided central line. Central line appears to be in good position. Ther e is no pneumothorax. Continues to be a diffuse patchy infiltrate involving the left lung. The right lung remains grossly clear. The bony structures are stable. CONCLUSION: Left-sided central line in good position. No evidence of pneumothorax. Electronically signed by: Ranjit Roberts MD 03/22/2018 12:52 PM EDT
--- NOTE | 2018-03-22 13:57 | P.DS ---
Date of admission: 03/16/18 11:59 Primary care physician: Boris Liao MD Anticipated date of discharge: 03/22/18 Brief History from admission: Patient is a very pleasant 67-year-old male with history of lung cancer in 2010 status post radiation therapy and chemotherapy completed in [address] Boyle. Patient had had no follow-up and finally gotten insurance and had a appointment set up first time this week. Prior to first office visit- routine laboratories were drawn and when results were sent to PCP was called by the office and instructed come in here for further evaluation. Specifically hypercalcemia and elevated BUN/creatinine. On further questioning patient lives by himself, Patient states that he still smokes 1 pack/day and quit smoking this morning. been complaining actually of poor p.o. intake and weight loss for the past 3-4 months now. Patient still coughs periodically but no significant sputum, no hemoptysis. Patient denies any changes in his functional status denies- except for generalized weakness- still ambulates independently , no shortness of breath chest pain. On evaluation here at the ER repeat labs confirmed high calcium level and elevated BUN/creatinine. On imaging study shows a new lung mass. Admitted for further evaluation and management. Patient update on day of discharge: The patient had his [id number] placed by general surgery. He tolerated the procedure well. He wanted to go to [place] [facility] if possible. Discussed with case management. DS: Diagnosis - Discharge Diagnosis (1) Weakness Status: Acute (2) Lung mass Status: Acute (3) Liver metastasis Status: Acute DS: Medications - Discharge Medications Prescriptions: oxycodone-acetaminophen 1 tab PO Q4H PRN #18 tab PRN Reason: pain 6-10 potassium chloride 10 meq PO DAILY #3 tab potassium phosphate, monobasic [K-Phos Original] 500 mg PO BID #10 tab DS: Summary Hospital Course: Acute kidney injury/ Hypercalcemia of malignancy Improved with IVFs and IV pamidronate. We continued D5 1/2 NS at 125 ml/hr. Calcium level was 9.8 on 03/22/18. He will have a repeat BMP in 3 days. New lung mass/ Liver mets CT scan noted a lung mass. Liver metastases also noted on CT imaging. Oncology was consulted. A liver biopsy was performed and pathology revealed metastatic, poorly differentiated squamous cell carcinoma. General surgery was consulted for [id number]-o-[id number] placement, performed on 03/22. The pt received oxygen and nebs as needed. He received smoking cessation instruction. He received pain control with a bowel regimen. He will follow up with oncology as an outpt. Generalized weakness PT was consulted and rehab was recommended. We consulted case management for assistance with discharge. Poor p.o. intake We consulted the dietitian and started the patient on Ensure supplements. Hypokalemia/ Hypomagnesemia/ Hypophosphatemia Improved. The pt will be discharged on PO KCl and PO K-phos. He will have a repeat BMP in 3 days. - Time Spent with Patient Total time spent providing and/or coordinating discharge services: Greater than 30 minutes - Quality: VTE Deep Vein Thrombosis/Pulmonary Embolism Present on Admission: No Exam Vital signs: Vital Signs 03/21/18 15:32 03/21/18 16:00 03/21/18 19:04 Temperature 98.7 F Pulse Rate 82 80 80 Respiratory Rate 18 18 16 Blood Pressure 131/70 Pulse Oximetry 96 03/21/18 20:08 03/21/18 20:41 03/21/18 23:22 Temperature 98.9 F 98.7 F Pulse Rate 103 H 92 H 80 Respiratory Rate 18 18 Blood Pressure 121/72 99/54 L Pulse Oximetry 96 95 03/22/18 00:06 03/22/18 04:00 03/22/18 07:58 Temperature 98 F Pulse Rate 83 77 87 Respiratory Rate 16 Blood Pressure 102/58 L Pulse Oximetry 97 03/22/18 08:00 03/22/18 12:14 03/22/18 12:15 Temperature 97.9 F Pulse Rate 93 H 103 H 103 H Respiratory Rate 18 23 Blood Pressure 127/73 119/60 105/61 Pulse Oximetry 95 98 98 03/22/18 12:30 03/22/18 13:47 Temperature Pulse Rate 96 H 91 H Respiratory Rate 19 16 Blood Pressure 101/61 Pulse Oximetry 97 Intake & Output 03/21/18 03/22/18 03/22/18 18:59 06:59 18:59 Intake Total 1100 / 1100 1265 / 1265 Output Total 200 / 200 800 / 800 5 / 5 Balance 900 / 900 465 / 465 -5 / -5 Weight 85.8 kg Intake: IV 1100 / 1100 365 / 365 D5W/1/2 NS Inj 1,000 ML @ 125 1000 / 1000 mls/hr IV.CONT .Q8H [facility] Rx#: [id number] Magnesium Sulfate 1 gm/D5W 100 100 / 100 100 / 100 ml Premix 100 ML @ 100 mls/hr IV.SIG Q1H [facility] Rx#:[id number] KCl Inj 20 MEQ Magnesium 265 / 265 Sulfate Inj 1 GM In D5W/1/2 NS Inj 250 ML @ 50 mls/hr IV.SIG ONCE ONE Rx#:[id number] Oral 900 / 900 Output: Urine 200 / 200 800 / 800 Estimated Blood Loss 5 / 5 Other: # Voids 8 Date of Last Bowel Movement 03/20/18 03/21/18 # Bowel Movements 1 Narrative: General: No distress HEENT: Anicteric sclera; Dry oral mucosa Neck: supple no JVD no bruit Chest: Mild wheezing Heart: Regular rhythm, no murmurs Abdomen: soft, nontender with good bowel sounds, no guarding or rigidity Extremities: 1+ lower extremity edema Neuro: ANO x3 clear speech cranial nerves grossly intact. motor moves all extremities equally 5/5 Results Procedures completed during hospitalization: Port placement Labs on day of discharge: Labs from last 24 hours 03/22/18 05:11 Sodium 139 Potassium 3.7 Chloride 105 Carbon Dioxide 25.0 Anion Gap 9 BUN 12 Creatinine 1.05 Estimated GFR 70 L Random Glucose 106 Calcium 9.8 Phosphorus 1.7 L Magnesium 2.0 D - Impressions ITS Impressions Abdomen/Pelvis CT 03/16/18 09:09 CONCLUSION: 1. Innumerable masses scattered throughout the enlarged liver consistent with metastatic disease until proven otherwise. 2. Uncomplicated colonic diverticulosis. 3. Gallbladder sludge. 4. Focal consolidation of the anterior aspect of the left lung base consistent with probable atelectasis. 5. Minimally prominent prostate with central calcifications. 6. Degenerative changes and scoliosis of the thoracolumbar spine. Chest CT 03/16/18 09:32 CONCLUSION: 1. Focal moderate to large alveolar consolidation involving the left mid lung field with probable left hilar mass/adenopathy. The findings are suspicious for neoplasm until proven otherwise. PET/CT scan may be helpful for further evaluation. 2. Innumerable liver masses are noted consistent with probable metastatic disease. 3. Coronary artery calcifications. 4. Degenerative changes and scoliosis of the thoracolumbar spine. Liver Biopsy CT 03/17/18 00:00 CONCLUSION: 1. Uncomplicated CT guided core biopsy of one of the right hepatic lobe masses. During the biopsy turbid fluid was noted likely relating to necrotic material. A sample of this was sent for culture. Chest X-Ray 03/22/18 12:03 CONCLUSION: Left-sided central line in good position. No evidence of pneumothorax. Discharge Plan - Discharge Disposition Patient Disposition: Discharge to SNF - Discharge Condition Condition: Stable - Discharge Order Discharge Orders: Discharge Order (Routine); Ordered 03/22/18 Ordered By: Fahad Ontiveros - Discharge Details Anticipated Discharge Date: 03/22/18 - Physicians Team Primary Care Provider: Boris Liao Attending Provider: Fahad Ontiveros Other Providers: Vickie Boyle MD ; Mack Giron ; Ramon Valle MD ; [facility],[place]
--- NOTE | 2018-03-22 14:03 | MP ---
cc: Ramon Valle MD DATE OF OPERATION: 03/22/2018 PREOPERATIVE DIAGNOSIS: Lung cancer, need for port access. POSTOPERATIVE DIAGNOSIS: Lung cancer, need for port access. PROCEDURE PERFORMED: Left subclavian Port-A-Cath placement under fluoroscopy. SURGEON: Ramon Valle MD HUMAN RESOURCES COMPLIANCE MANAGER: None. ANESTHESIA: GETA. IV FLUIDS: See anesthesia sheet. ESTIMATED BLOOD LOSS: 5 mL. DRAINS: None. COMPLICATIONS: None. FINDINGS: Good vascular return on port. SPECIMENS: None. INDICATIONS FOR PROCEDURE: The patient is a 67-year-old male who has lung cancer, had a history of previous port placement, chemotherapy, recurrence and needed additional IV access due to history of port being removed years ago. Discussed with the patient in detail, states understanding, and would like to proceed. DETAILS OF PROCEDURE: The patient was taken to the operating suite, placed in supine position. He was prepped and draped in the usual sterile fashion after induction of general endotracheal anesthesia. Brief timeout done stating correct patient, procedure, surgical site. We were all in agreement with this. Attention first directed to the left chest area. Local anesthetic injected just below the clavicle. Landmarks identified. The patient was placed in Trendelenburg. The aspirator needle was obtained and inserted to aspirate the left subclavian vein. This was successful on first attempt. The syringe was removed and the wire was placed. The Seldinger technique was used in order. The needle was removed over the wire. A small stab laci incision was made. With hemostat in place, fluoroscopy was used to confirm placement in the left subclavian and superior vena cava. This was appropriate. Next, an incision was made just inferior for the port pocket using a 15 blade after injection of local anesthetic. Further dissection done with electro Bovie cautery. Interdigitation done to create port pocket. The tunneler was done to tunnel the catheter under the skin. Then bring it into the wound bed. The dilator sheath was then advanced over the wire and the wire complex was removed in its entirety. The catheter was removed and advanced through the tunnel sheath. Fluoroscopy used to direct the catheter down and placed at its appropriate level. The port was obtained and was pre-flushed. The cuff was also placed. The catheter was cut at 18 cm tom. The catheter was placed over the port. The cuff locked in place. A 3-0 Prolene was used to secure the port down the chest wall. The Weber needle was used with saline to flush the port. Next, hep saline was used 2 mL. Again, fluoroscopy used to check the catheter tip placement and port location and it looked adequate. The patient had no further ectopy following completion of port placement. 3-0 Vicryl used as subcuticular stitches followed by 4-0 Monocryl, followed by sterile dressings. The patient tolerated the procedure well. There were no complications. All lap and instrument counts were correct at the end of the procedure. The patient was extubated and taken stable to PACU. Chest x-ray is pending. MD ELVIN Tong/sv , 01:32 PM , 01:44 PM
[2018-03-22] MEDS: Potassium Phosphate 500 MG Soluble Tablet PO SCH ×2 (17:49→22:00)
[2018-03-22] MEDS: Sodium Chloride 0.9% 2 ML Flush BID IV.FLUSH SCH ×2 (18:09→22:01)
[2018-03-22] MEDS: Dextrose 5%/NaCl 0.45% Inj 1,000 ML IV.CONT SCH ×3 (18:13→18:22)
[2018-03-23] MEDS: oxyCODONE/Acetaminophen 10/325 Tablet PO PRN ×4 (00:34→16:06)
[2018-03-23] MEDS: Dextrose 5%/NaCl 0.45% Inj 1,000 ML IV.CONT SCH ×2 (02:48→10:20)
[2018-03-23 06:02] LABS: Hematocrit 33.7 % (39.0-51.0); Hemoglobin 11.5 gm/dL (13.0-17.0); Mean Corpuscular HGB Conc 34.2 % (32.0-36.0); Mean Corpuscular Hemoglobin 31.8 pg (27.0-34.0); Mean Platelet Volume 7.5 fL (7.0-11.0); Platelet Count 166 th/mm3 (150-450); Red Blood Count 3.62 mil/mm3 (4.50-5.90); Red Cell Distribution Width 14.2 % (11.6-17.2); White Blood Count 8.4 th/mm3 (4.0-11.0)
[2018-03-23 06:19] LABS: Calcium 8.7 mg/dL (8.5-10.1); Carbon Dioxide 26.2 meq/L (21.0-32.0); Magnesium 1.7 mg/dL (1.5-2.5); Phosphorus 2.4 mg/dL (2.5-4.9); Potassium 3.8 meq/L (3.5-5.1)
[2018-03-23] MEDS: Potassium Phosphate 500 MG Soluble Tablet PO SCH ×2 (08:31→22:43)
[2018-03-23] MEDS: Polyethylene Glycol 3350 17 GM Packet PO SCH (08:32)
[2018-03-23] MEDS: Sodium Chloride 0.9% 2 ML Flush BID IV.FLUSH SCH ×2 (08:32→21:02)
--- NOTE | 2018-03-23 10:47 | P.PNONC ---
Subjective Interval history: Afebrile. Status post port placement yesterday. Patient reports the area is sore. Discussed with case management this a.m. She is working on placing the patient at [facility]. Objective Vital Signs/Intake & Output: Vital Signs 03/22/18 12:14 03/22/18 12:15 03/22/18 12:30 Temperature 97.9 F Pulse Rate 103 H 103 H 96 H Respiratory Rate 14 23 19 Blood Pressure 119/60 105/61 101/61 Pulse Oximetry 98 98 97 03/22/18 13:47 03/22/18 16:00 03/22/18 19:30 Temperature 98.9 F Pulse Rate 91 H 94 H 68 Respiratory Rate 16 18 18 Blood Pressure 101/55 L Pulse Oximetry 96 03/22/18 20:00 03/22/18 20:06 03/22/18 23:41 Temperature 99.7 F H Pulse Rate 91 H 88 Respiratory Rate 16 Blood Pressure 93/59 L Pulse Oximetry 97 03/23/18 00:00 03/23/18 04:06 03/23/18 04:55 Temperature 99 F 98.7 F Pulse Rate 85 83 82 Respiratory Rate 16 18 Blood Pressure 100/58 L 93/56 L Pulse Oximetry 95 96 03/23/18 07:44 03/23/18 07:46 03/23/18 08:00 Temperature 99 F Pulse Rate 111 H 95 H Respiratory Rate 22 14 Blood Pressure 92/57 L Pulse Oximetry 95 99 Intake & Output 03/22/18 03/23/18 03/23/18 18:59 06:59 18:59 Intake Total 1000 / 1000 1480 / 1480 1000 / 1000 Output Total 5 / 5 300 / 300 Balance 995 / 995 1180 / 1180 1000 / 1000 Weight 86 kg Intake: IV 1000 / 1000 1000 / 1000 1000 / 1000 D5W/1/2 NS Inj 1,000 ML @ 125 1000 / 1000 1000 / 1000 1000 / 1000 mls/hr IV.CONT .Q8H [facility] Rx#: [id number] Oral 480 / 480 Output: Urine 300 / 300 Estimated Blood Loss 5 / 5 Other: # Voids 1 Date of Last Bowel Movement 03/22/18 Result Diagrams: 03/23/18 03:27 03/23/18 03:27 Laboratory Results: Laboratory Results - last 24 hr 03/23/18 03/23/18 03:27 03:27 WBC 8.4 RBC 3.62 L Hgb 11.5 L Hct 33.7 L MCV 93.0 MCH 31.8 MCHC 34.2 RDW 14.2 Plt Count 166 MPV 7.5 Sodium 139 Potassium 3.8 Chloride 103 Carbon Dioxide 26.2 Anion Gap 10 BUN 13 Creatinine 1.17 Estimated GFR 62 L Random Glucose 108 H Calcium 8.7 D Phosphorus 2.4 L Magnesium 1.7 Culture Results: Microbiology 03/17/18 13:00 Gram Stain - Final Fluid - Other Body Fluid Culture - Final No growth in 72 hours (aerobically and anaerobically) Imaging Studies: Impressions Chest X-Ray 03/22/18 12:03 CONCLUSION: Left-sided central line in good position. No evidence of pneumothorax. Medications: Active Medications Generic Name Dose Route Start Last Admin Trade Name Freq PRN Reason Stop Dose Admin Albuterol 1 ampul 03/17/18 16:45 03/19/18 16:15 Duoneb Neb (Prn) NEB 1 ampul Q2HR NEB PRN Administration DYSPNEA Albuterol 1 ampul 03/21/18 20:00 03/23/18 07:45 Duoneb Neb (Roxanne) NEB 1 ampul Q6HR WHILE AWAKE NEB [facility] Administration Heparin Sodium (Porcine) 5,000 units 03/16/18 21:00 03/22/18 09:47 Heparin Inj SQ Not Given Q12HR [facility] Sodium Chloride 500 mls @ 0 mls/hr 03/16/18 10:00 03/16/18 13:08 Ns Inj IV.SIG Infused BOLUS [facility] Infusion Wide Open Dextrose/Sodium Chloride 1,000 mls @ 125 mls/hr 03/20/18 10:45 03/23/18 10:20 D5w/1/2 Ns Inj IV.CONT 125 mls/hr .Q8H [facility] Administration Oxycodone/Acetaminophen 1 tab 03/18/18 11:35 03/20/18 09:28 Percocet 5/325 Mg PO 1 tab Q4H PRN Administration PAIN 3-5; IF UABLE TO TAKE PO Oxycodone/Acetaminophen 1 tab 03/20/18 10:30 03/23/18 10:18 Percocet 10/325 Mg PO 1 tab Q4H PRN Administration pain 6-10 Polyethylene Glycol 17 gm 03/19/18 16:30 03/23/18 08:32 Miralax PO Not Given DAILY [facility] Potassium Phosphate 500 mg 03/20/18 09:00 03/23/18 08:31 K-Phos Original PO 500 mg BID [facility] Administration Sodium Chloride 2 ml 03/16/18 21:00 03/23/18 08:32 Ns Flush IV.FLUSH Not Given BID [facility] Objective Remarks: GENERAL: Well-nourished, well-developed elderly male patient, in no acute distress. SKIN: Warm and dry. Steri-Strips and dressing to left chest wall, dry/clean and intact. HEAD: Normocephalic. EYES: No scleral icterus. No injection or drainage. NECK: Supple, trachea midline. CARDIOVASCULAR: +S1/S2 RESPIRATORY: Breath sounds equal bilaterally. Nonlabored at rest. GASTROINTESTINAL: Abdomen soft, non-tender, nondistended. EXTREMITIES: No cyanosis, or edema. MUSCULOSKELETAL: Adequate muscle tone. NEUROLOGICAL: No obvious focal deficit. Awake, alert, and oriented x3. PSYCHIATRIC: Appropriate mood and affect; insight and judgment normal. 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 He was treated with concurrent chemotherapy and radiation. He was followed with serial imaging and had no evidence of recurrent disease but was lost to follow- up after 2013. The patient was admitted to the ER with shortness of breath and CT scan of the chest showed suspected left hilar mass and adenopathy. He has had a CT guided liver biopsy after he was found to have innumerable lesions consistent with metastatic disease to the liver. 1. Metastatic poorly differentiated squamous cell carcinoma, newly diagnosed. Status post port placement yesterday. Patient awaiting discharge to SNF. He will start outpatient chemotherapy TRAY. 2. Hypercalcemia, improved, status post pamidronate, continues on D5 1/2 NS. 3. Port placed to left chest wall. No swelling, ecchymosis or discharge noted. Dressings dry/intact. Patient reports mild soreness to the area. 4. Discussed outpatient follow-up for treatment. All questions answered. - Attending Statement The exam, history, and the medical decision-making described in the above note were completed with the assistance of the mid-level provider. I reviewed and agree with the findings presented. I attest that I had a [id number] encounter with the patient on the same day, and personally performed and documented my assessment and findings in the medical record. Patient brought of his port. Some tenderness at the site but is pleased it is done. Appreciate Dr. Valle putting in a port. We discussed follow-up in outpatient basis. Chemotherapy false pass doublet with carboplatin and Abraxane being contemplated. There are protocols for weekly as well as every 3 week treatments. He will need follow-up on an outpatient basis. His information was referred to a new patient referral and inpatient clinic to coordinate follow -up from his rehab/prison facility. Mr. Nagy is interested to proceed with our treatment. He is interested to rehab and improve his performance status.
--- NOTE | 2018-03-23 13:31 | P.PNIM ---
Subjective Interval history: Patient discharge yesterday. Awaiting placement at [facility]. He reports some soreness at the site of port placement. Otherwise he has no new complaints. Physical Exam Vital signs: Vital Signs 03/22/18 13:47 03/22/18 16:00 03/22/18 19:30 Temperature 98.9 F Pulse Rate 91 H 94 H 68 Respiratory Rate 16 18 18 Blood Pressure 101/55 L Pulse Oximetry 96 03/22/18 20:00 03/22/18 20:06 03/22/18 23:41 Temperature 99.7 F H Pulse Rate 91 H 88 Respiratory Rate 16 Blood Pressure 93/59 L Pulse Oximetry 97 03/23/18 00:00 03/23/18 04:06 03/23/18 04:55 Temperature 99 F 98.7 F Pulse Rate 85 83 82 Respiratory Rate 16 18 Blood Pressure 100/58 L 93/56 L Pulse Oximetry 95 96 03/23/18 07:44 03/23/18 07:46 03/23/18 08:00 Temperature 99 F Pulse Rate 111 H 95 H Respiratory Rate 22 14 Blood Pressure 92/57 L Pulse Oximetry 95 99 03/23/18 11:07 03/23/18 11:32 Temperature 99.3 F Pulse Rate 86 90 Respiratory Rate 20 Blood Pressure 105/60 Pulse Oximetry 93 L Intake & Output 03/22/18 03/23/18 03/23/18 18:59 06:59 18:59 Intake Total 1000 / 1000 1480 / 1480 1000 / 1000 Output Total 5 / 5 300 / 300 Balance 995 / 995 1180 / 1180 1000 / 1000 Weight 86 kg Intake: IV 1000 / 1000 1000 / 1000 1000 / 1000 D5W/1/2 NS Inj 1,000 ML @ 125 1000 / 1000 1000 / 1000 1000 / 1000 mls/hr IV.CONT .Q8H [facility] Rx#: [id number] Oral 480 / 480 Output: Urine 300 / 300 Estimated Blood Loss 5 / 5 Other: # Voids 1 Date of Last Bowel Movement 03/22/18 Narrative: GENERAL: This is a well-nourished, well-developed patient, in no apparent distress. CARDIOVASCULAR: Port site appears clean. Normal rate and regular rhythm without murmurs, gallops, or rubs. RESPIRATORY: Good respiratory efforts. Breath sounds equal and clear to auscultation bilaterally. GASTROINTESTINAL: Abdomen soft, non-tender, non-distended. Normal active bowel sounds MUSCULOSKELETAL: Extremities without cyanosis, or edema. NEURO: Alert & Oriented x4 to person, place, time, situation. Moves all ext x4 PSYCH: Appropriate mood and affect. Results - Labs CBC & Chem 7: 03/23/18 03:27 03/23/18 03:27 Laboratory Results - last 24 hr 03/23/18 03/23/18 03:27 03:27 WBC 8.4 RBC 3.62 L Hgb 11.5 L Hct 33.7 L MCV 93.0 MCH 31.8 MCHC 34.2 RDW 14.2 Plt Count 166 MPV 7.5 Sodium 139 Potassium 3.8 Chloride 103 Carbon Dioxide 26.2 Anion Gap 10 BUN 13 Creatinine 1.17 Estimated GFR 62 L Random Glucose 108 H Calcium 8.7 D Phosphorus 2.4 L Magnesium 1.7 - Procedures Port placement Assessment and Plan - Assessment (1) Weakness Code(s): R53.1 - Weakness Status: Acute (2) Lung mass Code(s): R91.8 - Other nonspecific abnormal finding of lung field Status: Acute (3) Liver metastasis Code(s): C78.7 - Secondary malignant neoplasm of liver and intrahepatic bile duct Status: Acute - Plan 67-year-old male admitted and treated for the following: Acute kidney injury/ Hypercalcemia of malignancy Patient treated with IVFs and IV pamidronate. Calcium level normalized. Discontinue IV fluid New lung mass/ Liver mets CT scan noted a lung mass. Liver metastases also noted on CT imaging. Oncology was consulted. A liver biopsy was performed and pathology revealed metastatic, poorly differentiated squamous cell carcinoma. General surgery was consulted for Tyhbtm-o-Pjfe placement, performed on 03/22. The pt received oxygen and nebs as needed. He received smoking cessation instruction. He received pain control with a bowel regimen. He will follow up with oncology as an outpt. Generalized weakness Patient needs further rehabilitation at a intermediate facility. Case management working on placement. Poor p.o. intake We consulted the dietitian and started the patient on Ensure supplements. Hypokalemia/ Hypomagnesemia/ Hypophosphatemia Improved. The pt will be discharged on PO KCl and PO K-phos. He will have a repeat BMP in 3 days. Discharge Planning: Patient is discharged. Awaiting placement at SNF
--- NOTE | 2018-03-23 16:08 | P.PNGS ---
Subjective Interval history: Resting in bed Reports mild tenderness at port site Physical Exam Vital signs: Vital Signs 03/22/18 19:30 03/22/18 20:00 03/22/18 20:06 Temperature 99.7 F H Pulse Rate 68 91 H Respiratory Rate 18 16 Blood Pressure 93/59 L Pulse Oximetry 97 03/22/18 23:41 03/23/18 00:00 03/23/18 04:06 Temperature 99 F Pulse Rate 88 85 83 Respiratory Rate 16 Blood Pressure 100/58 L Pulse Oximetry 95 03/23/18 04:55 03/23/18 07:44 03/23/18 07:46 Temperature 98.7 F Pulse Rate 82 111 H Respiratory Rate 18 22 Blood Pressure 93/56 L Pulse Oximetry 96 95 03/23/18 08:00 03/23/18 11:07 03/23/18 11:32 Temperature 99 F 99.3 F Pulse Rate 95 H 86 90 Respiratory Rate 14 20 Blood Pressure 92/57 L 105/60 Pulse Oximetry 99 93 L Intake & Output 03/22/18 03/23/18 03/23/18 18:59 06:59 18:59 Intake Total 1000 / 1000 1480 / 1480 1500 / 1500 Output Total 5 / 5 300 / 300 Balance 995 / 995 1180 / 1180 1500 / 1500 Weight 86 kg Intake: IV 1000 / 1000 1000 / 1000 1500 / 1500 D5W/1/2 NS Inj 1,000 ML @ 125 1000 / 1000 1000 / 1000 1500 / 1500 mls/hr IV.CONT .Q8H [facility] Rx#: [id number] Oral 480 / 480 Output: Urine 300 / 300 Estimated Blood Loss 5 / 5 Other: # Voids 1 Date of Last Bowel Movement 03/22/18 Narrative: Alert and awake LEFT chest port ---- tender at site; dressing c/d/i Results - Labs 03/23/18 03:27 03/23/18 03:27 Laboratory Results - last 24 hr 03/23/18 03/23/18 03:27 03:27 WBC 8.4 RBC 3.62 L Hgb 11.5 L Hct 33.7 L MCV 93.0 MCH 31.8 MCHC 34.2 RDW 14.2 Plt Count 166 MPV 7.5 Sodium 139 Potassium 3.8 Chloride 103 Carbon Dioxide 26.2 Anion Gap 10 BUN 13 Creatinine 1.17 Estimated GFR 62 L Random Glucose 108 H Calcium 8.7 D Phosphorus 2.4 L Magnesium 1.7 - Imaging Imaging: ITS Impressions Abdomen/Pelvis CT 03/16/18 09:09 CONCLUSION: 1. Innumerable masses scattered throughout the enlarged liver consistent with metastatic disease until proven otherwise. 2. Uncomplicated colonic diverticulosis. 3. Gallbladder sludge. 4. Focal consolidation of the anterior aspect of the left lung base consistent with probable atelectasis. 5. Minimally prominent prostate with central calcifications. 6. Degenerative changes and scoliosis of the thoracolumbar spine. Chest CT 03/16/18 09:32 CONCLUSION: 1. Focal moderate to large alveolar consolidation involving the left mid lung field with probable left hilar mass/adenopathy. The findings are suspicious for neoplasm until proven otherwise. PET/CT scan may be helpful for further evaluation. 2. Innumerable liver masses are noted consistent with probable metastatic disease. 3. Coronary artery calcifications. 4. Degenerative changes and scoliosis of the thoracolumbar spine. Liver Biopsy CT 03/17/18 00:00 CONCLUSION: 1. Uncomplicated CT guided core biopsy of one of the right hepatic lobe masses. During the biopsy turbid fluid was noted likely relating to necrotic material. A sample of this was sent for culture. Chest X-Ray 03/22/18 12:03 CONCLUSION: Left-sided central line in good position. No evidence of pneumothorax. Assessment and Plan - Assessment (1) Lung mass Code(s): R91.8 - Other nonspecific abnormal finding of lung field Status: Acute Plan: 67 year old male with newly diagnosed lung cancer; metastatic disease to liver -POD1 port placement -Okay to use port -GS clear for DC - Attending Attestation patient seen at bedside pain ok port c/d/i ok to use port for chemo cxr no ptx good placement The exam, history, and the medical decision-making described in the above note were completed with the assistance of the mid-level provider. I reviewed and agree with the findings presented. I attest that I had a [id number] encounter with the patient on the same day, and personally performed and documented my assessment and findings in the medical record.
[2018-03-24 00:19] VITALS: RESP 18
[2018-03-24 09:09] VITALS: BP 115/63; TEMP 98.9; O2SAT 94
[2018-03-24] MEDS: Sodium Chloride 0.9% 2 ML Flush BID IV.FLUSH SCH (09:17)
[2018-03-24] MEDS: Polyethylene Glycol 3350 17 GM Packet PO SCH (09:17)
[2018-03-24] MEDS: Potassium Phosphate 500 MG Soluble Tablet PO SCH (09:18)
[2018-03-24] MEDS: oxyCODONE/Acetaminophen 10/325 Tablet PO PRN (09:18)
[2018-03-24 11:41] VITALS: PULSE 99
--- NOTE | 2018-03-24 14:25 | P.PNIM ---
Subjective Interval history: Patient had brief hypoxemia overnight and had to be placed on oxygen. This morning he is back on room air. He states he is feeling well without shortness of breath. No chest pain. Physical Exam Vital signs: Vital Signs 03/23/18 16:00 03/23/18 19:03 03/23/18 20:00 Temperature 98.9 F 99.1 F Pulse Rate 88 94 H 90 Respiratory Rate 18 20 17 Blood Pressure 106/62 120/71 Pulse Oximetry 92 L 100 03/23/18 20:11 03/24/18 00:02 03/24/18 00:15 Temperature 99.7 F H Pulse Rate 94 H 92 H 93 H Respiratory Rate 18 Blood Pressure 98/57 L Pulse Oximetry 95 03/24/18 04:09 03/24/18 04:10 03/24/18 07:00 Temperature 99.4 F Pulse Rate 97 H 99 H 105 H Respiratory Rate 18 Blood Pressure 103/62 Pulse Oximetry 91 L 03/24/18 08:24 03/24/18 09:08 03/24/18 11:00 Temperature 98.9 F Pulse Rate 107 H 99 H Respiratory Rate 18 Blood Pressure 115/63 Pulse Oximetry 92 L 94 L Intake & Output 03/23/18 03/24/18 03/24/18 18:59 06:59 18:59 Intake Total 2400 / 2400 Output Total 550 / 550 750 / 750 Balance 1850 / 1850 -750 / -750 Weight 87.7 kg Intake: IV 1500 / 1500 D5W/1/2 NS Inj 1,000 ML @ 125 1500 / 1500 mls/hr IV.CONT .Q8H COUNT INCLUDES [facility] Rx#: [id number] Oral 900 / 900 Output: Urine 250 / 250 750 / 750 Stool 300 / 300 Other: # Voids 2 1 Date of Last Bowel Movement 03/23/18 03/23/18 03/24/18 # Bowel Movements 2 Narrative: GENERAL: This is a well-nourished, well-developed patient, in no apparent distress. CARDIOVASCULAR: Normal rate and regular rhythm without murmurs, gallops, or rubs. RESPIRATORY: Good respiratory efforts. Breath sounds equal and clear to auscultation bilaterally. GASTROINTESTINAL: Abdomen soft, non-tender, non-distended. Normal active bowel sounds MUSCULOSKELETAL: Extremities without cyanosis, or edema. NEURO: Alert & Oriented x4 to person, place, time, situation. Moves all ext x4 PSYCH: Appropriate mood and affect. Results - Labs CBC & Chem 7: 03/23/18 03:27 03/23/18 03:27 - Procedures Port placement Assessment and Plan - Assessment (1) Weakness Code(s): R53.1 - Weakness Status: Acute (2) Lung mass Code(s): R91.8 - Other nonspecific abnormal finding of lung field Status: Acute (3) Liver metastasis Code(s): C78.7 - Secondary malignant neoplasm of liver and intrahepatic bile duct Status: Acute - Plan 67-year-old male admitted and treated for the following: Acute kidney injury/ Hypercalcemia of malignancy Patient treated with IVFs and IV pamidronate. Calcium level normalized. IV fluid was discontinued. New lung mass/ Liver mets CT scan noted a lung mass. Liver metastases also noted on CT imaging. Oncology was consulted. A liver biopsy was performed and pathology revealed metastatic, poorly differentiated squamous cell carcinoma. General surgery was consulted for [id number] placement, performed on 03/22. The pt received oxygen and nebs as needed. He received smoking cessation instruction. He received pain control with a bowel regimen. He will follow up with oncology as an outpt. Generalized weakness Patient needs further rehabilitation at a snf facility. Case management working on placement. Poor p.o. intake We consulted the dietitian and started the patient on Ensure supplements. Hypokalemia/ Hypomagnesemia/ Hypophosphatemia Improved. The pt is discharged on PO KCl and PO K-phos. He will have a repeat BMP in 3 days. Discharge Planning: Patient is discharged. He has been waiting for insurance authorization. Per nursing, insurance authorization received today. He can be discharged today.
== END 2018-03-24 12:27 ==
LOC: NEPC 08:28 → NEDA 11:59 → HCIN 14:46
PROVIDERS: ADMIT Family Medicine; ATTEND Family Medicine
DX: Z80.0 Family history of malignant neoplasm of digestive organs; F17.210 Nicotine dependence, cigarettes, uncomplicated; I10 Essential (primary) hypertension; N17.9 Acute kidney failure, unspecified; J43.9 Emphysema, unspecified; R09.02 Hypoxemia; Z92.21 Personal history of antineoplastic chemotherapy; C78.7 Secondary malignant neoplasm of liver and intrahepatic bile duct; Z68.33 Body mass index [BMI] 33.0-33.9, adult; E83.52 Hypercalcemia; M17.0 Bilateral primary osteoarthritis of knee; E87.6 Hypokalemia; K59.09 Other constipation; C34.2 Malignant neoplasm of middle lobe, bronchus or lung; Z92.3 Personal history of irradiation; Z80.1 Family history of malignant neoplasm of trachea, bronchus and lung; M10.9 Gout, unspecified; R63.0 Anorexia; R63.4 Abnormal weight loss

== ENCOUNTER 2018-04-04 11:51 | Inpatient (IN) ==
--- NOTE | 2018-04-04 13:25 | ED ---
HPI General Chief complaint: Altered Mental Status Stated complaint: Medical Time Seen by Provider: 04/04/18 13:14 History of Present Illness HPI narrative: This is a 67-year-old male with history of lung cancer with metastasis to the liver, recently hospitalized earlier this month, presents from [facility] for evaluation of altered mental status. History was initially limited. I called [facility] and discussed with the nurse who was aware of the patient's case. She reports that typically the patient is ambulatory and converses normally. Over the past 4 days the patient has been confused, not ambulatory, does not know where he is. The patient follows with oncologist Dr. Boyle. History from the patient is currently limited as he is not able to provide any pertinent information. Related Data Previous Rx's Medication Instructions Recorded oxycodone-acetaminophen 1 tab PO Q4H PRN #18 tab 03/22/18 potassium chloride 10 meq PO DAILY #3 tab 03/22/18 potassium phosphate, monobasic 500 mg PO BID #10 tab 03/22/18 [K-Phos Original] Allergies Allergy/AdvReac Type Severity Reaction Status Date / Time No Known Allergies Allergy Verified 04/04/18 13:18 Review of Systems ROS Unobtainable ROS Unobtainable: unobtainable due to mental status PMFSH Family History Family History Other No history of diabetes mellitus No history of hypertension Social History Social History Substance History: No History of Abuse Second Hand Smoke Exposure: No Smoking Status: Former smoker Tobacco Type: Cigarettes How Often Do You Have a Drink Containing Alcohol: Never Recent Travel in [facility] within the Last 8 Weeks: No Recent Out of Country Travel within the Last 8 Weeks: No Exam Narrative Exam Narrative: GENERAL: This is a well-developed well-nourished male who is awake, alert to person but not place or time. SKIN: Warm and dry. No evidence of pressure wounds. No areas of erythema. There is an area of ecchymosis on the right lateral abdomen and anterior abdomen , likely secondary to medication injections. HEAD: Atraumatic. Normocephalic. EYES: Pupils equal and round. No scleral icterus. No injection or drainage. ENT: No nasal bleeding or discharge. Mucous membranes pink and moist. NECK: Trachea midline. No JVD. CARDIOVASCULAR: Regular rate and rhythm. No murmur appreciated. RESPIRATORY: No accessory muscle use. Clear to auscultation. Breath sounds equal bilaterally. No crackles no wheezing GASTROINTESTINAL: Abdomen soft, non-tender, nondistended. Hepatic and splenic margins not palpable. No guarding MUSCULOSKELETAL: No obvious deformities. No clubbing. No cyanosis. No edema. NEUROLOGICAL: Awake and alert. No obvious cranial nerve deficits. Motor grossly within normal limits. Normal speech. Alert to person not place or time. Able to respond to some commands. Somewhat combative when attempting to obtain vital signs. Course Initial Documented Vital Signs Temperature 98.7 F 04/04/18 13:09 Pulse Rate 98 H 04/04/18 13:09 Respiratory Rate 20 04/04/18 13:09 Blood Pressure 169/67 H 04/04/18 13:09 Pulse Oximetry 95 04/04/18 13:09 Last Documented Vital Signs Temperature 98.7 F 04/04/18 13:09 Pulse Rate 93 H 04/04/18 16:24 Respiratory Rate 18 04/04/18 16:24 Blood Pressure 153/71 H 04/04/18 16:24 Pulse Oximetry 99 04/04/18 16:24 Medical Decision Making BEATRICE Attestation BEATRICE supervised visit: Yes Attestation: I was present with the advanced practitioner during the management of this patient. I discussed the case with the advanced practitioner and agree with the findings and plan as documented in their note except as noted below. 67yM with history of lung CA with mets to liver presenting with altered mental status. The patient is not currently getting chemo or radiation but has a port in his left upper chest. The patient had similar altered mentation earlier in the month, was found to have hypercalcemia, was admitted from 03/16-03/24/18, and discharged to [facility] facility. His sister states that the patient began to get confused yesterday and was unresponsive today. On exam, the patient is awake but only answers in 1 word answers; he has mild diffuse abdominal tenderness without guarding or rebound. His workup is significant for dehydration/ acute kidney injury and severe hypercalcemia. This patient will need to stay in the hospital for IV hydration, correction of hypercalcemia, and re-evaluation at frequent intervals. Patient's sister understands and agrees. [facility] Narrative Medical decision making narrative: Plan is for lab work, urinalysis, CT the brain, chest x-ray. CT the brain reveals possible acute infarct in the medial left frontal convexities, radiologist recommends MRI of the brain with and without contrast for further characterization. Lab work reveals acute kidney injury, leukocytosis with no obvious source of infection, blood cultures, lactic acid and CT abdomen pelvis have been added on. 1 L normal saline bolus initiated. Calcium is 15.6. Additional liter normal saline bolus has been initiated, zoledronic acid dose administered. Medical Screen Exam Complete: Yes Emergency Medical Condition: Yes Differential Diagnosis Differential Diagnosis: Brain metastasis versus sepsis versus delirium versus dementia versus encephalopathy Lab Data Result diagrams: 04/04/18 13:44 04/04/18 13:44 Lab Results 04/04/18 04/04/18 04/04/18 Range/Units 13:44 13:44 13:44 WBC 18.8 H (4.0-11.0) th/mm3 RBC 4.04 L (4.50-5.90) mil/mm3 Hgb 12.5 L (13.0-17.0) gm/dL Hct 37.4 L (39.0-51.0) % MCV 92.6 (80.0-100.0) fL MCH 30.8 (27.0-34.0) pg MCHC 33.3 (32.0-36.0) % RDW 16.5 (11.6-17.2) % Plt Count 333 D (150-450) th/mm3 MPV 7.9 (7.0-11.0) fL Neut % (Auto) 87.8 H (16.0-70.0) % Lymph % (Auto) 3.5 L (9.0-44.0) % Mathews % (Auto) 7.7 (0.0-8.0) % Eos % (Auto) 0.0 (0.0-4.0) % Baso % (Auto) 1.0 (0.0-2.0) % Neut # (Auto) 16.5 H (1.8-7.7) th/mm3 Lymph # (Auto) 0.6 L (1.0-4.8) th/mm3 Mathews # (Auto) 1.4 H (0.0-0.9) th/mm3 Eos # (Auto) 0.0 (0.0-0.4) th/mm3 Baso # (Auto) 0.2 (0.0-0.2) th/mm3 WBC Differential . Differential Comment Auto diff final Sodium 142 (136-145) meq/L Potassium 4.5 (3.5-5.1) meq/L Chloride 101 (98-107) meq/L Carbon Dioxide 32.5 H (21.0-32.0) meq/L Anion Gap 9 (5-15) meq/L BUN 97 H (7-18) mg/dL Creatinine 1.96 H (0.60-1.30) mg/dL Estimated GFR 34 L (>89) mL/min Random Glucose 118 H (74-106) mg/dL Lactic Acid (0.4-2.0) mmol/L Calcium 15.6 H* (8.5-10.1) mg/dL Prot Corrected Calcium (8.5-10.1) mg/dL Magnesium 2.1 (1.5-2.5) mg/dL Total Bilirubin 4.0 H (0.2-1.0) mg/dL AST 153 H (15-37) U/L ALT 70 (12-78) U/L Alkaline Phosphatase 390 H (45-117) U/L Ammonia 13 (11-32) mcmol/L Total Creatine Kinase 83 (39-308) U/L Total Protein 6.2 L (6.4-8.2) g/dL Albumin 1.8 L (3.4-5.0) g/dL Urine Color (Yellw/Straw) Urine Clarity (Clear) Urine pH (5.0-8.5) Ur Specific Mayo (1.002-1.035) Urine Protein (Neg-Trace) mg/dL Urine Glucose (UA) (Negative) mg/dL Urine Ketones (Negative) mg/dL Urine Occult Blood (Negative) Urine Nitrate (Negative) Urine Bilirubin (Negative) Urine Urobilinogen (Less than 2) mg/dL Ur Leukocyte Esterase (Negative) Urine RBC (0-3) /hpf Urine WBC (0-5) /hpf Ur Squamous Epith Cells (0-5) /hpf Hyaline Casts (0-3) /lpf Urine Mucus (Occasional) /lpf Micro UA Comment Ur Microscopic Review Urine Culture Comments 04/04/18 04/04/18 04/04/18 Range/Units 13:44 13:55 14:50 WBC (4.0-11.0) th/mm3 RBC (4.50-5.90) mil/mm3 Hgb (13.0-17.0) gm/dL Hct (39.0-51.0) % MCV (80.0-100.0) fL MCH (27.0-34.0) pg MCHC (32.0-36.0) % RDW (11.6-17.2) % Plt Count (150-450) th/mm3 MPV (7.0-11.0) fL Neut % (Auto) (16.0-70.0) % Lymph % (Auto) (9.0-44.0) % Mathews % (Auto) (0.0-8.0) % Eos % (Auto) (0.0-4.0) % Baso % (Auto) (0.0-2.0) % Neut # (Auto) (1.8-7.7) th/mm3 Lymph # (Auto) (1.0-4.8) th/mm3 Mathews # (Auto) (0.0-0.9) th/mm3 Eos # (Auto) (0.0-0.4) th/mm3 Baso # (Auto) (0.0-0.2) th/mm3 WBC Differential Differential Comment Sodium (136-145) meq/L Potassium (3.5-5.1) meq/L Chloride (98-107) meq/L Carbon Dioxide (21.0-32.0) meq/L Anion Gap (5-15) meq/L BUN (7-18) mg/dL Creatinine (0.60-1.30) mg/dL Estimated GFR (>89) mL/min Random Glucose (74-106) mg/dL Lactic Acid 2.5 H (0.4-2.0) mmol/L Calcium (8.5-10.1) mg/dL Prot Corrected Calcium (8.5-10.1) mg/dL Magnesium (1.5-2.5) mg/dL Total Bilirubin (0.2-1.0) mg/dL AST (15-37) U/L ALT (12-78) U/L Alkaline Phosphatase (45-117) U/L Ammonia (11-32) mcmol/L Total Creatine Kinase Cancelled (39-308) U/L Total Protein (6.4-8.2) g/dL Albumin (3.4-5.0) g/dL Urine Color Miryam (Yellw/Straw) Urine Clarity Hazy H (Clear) Urine pH 5.0 (5.0-8.5) Ur Specific Mayo 1.015 (1.002-1.035) Urine Protein Negative (Neg-Trace) mg/dL Urine Glucose (UA) Negative (Negative) mg/dL Urine Ketones Negative (Negative) mg/dL Urine Occult Blood Negative (Negative) Urine Nitrate Negative (Negative) Urine Bilirubin Negative (Negative) Urine Urobilinogen 4 or greater (Less than 2) mg/dL Ur Leukocyte Esterase Negative (Negative) Urine RBC 1 (0-3) /hpf Urine WBC 2 (0-5) /hpf Ur Squamous Epith Cells <1 (0-5) /hpf Hyaline Casts 1 (0-3) /lpf Urine Mucus Few H (Occasional) /lpf Micro UA Comment Cath-culture not ind Ur Microscopic Review Not Reportable Urine Culture Comments Cath-cult not ind Imaging Data Radiologist's impression: Chest X-Ray 04/04/18 13:16 CONCLUSION: No significant interval change compared to the prior examination. Head CT 04/04/18 13:16 CONCLUSION: 1. Subtle focal loss of johnson-white matter differentiation in the medial left frontal high convexities without significant mass effect. Findings are most consistent with an acute focal infarct. Given history of lung carcinoma, patient may benefit from contrast enhanced MRI examination for further characterization. . Abdomen/Pelvis CT 04/04/18 15:14 CONCLUSION: 1. Innumerable hepatic masses consistent with metastatic disease. Hepatic capsular distention can result in abdominal pain. 2. Trace perihepatic and deep pelvic free fluid. 3. Bulky calcification in the right common femoral artery with likely at least severe stenosis of the distal common femoral artery at the bifurcation. 4. Gallbladder sludge. 5. Colonic diverticulosis without definitive evidence for diverticulitis. 6. Additional stable ancillary findings, as above. Discharge Plan Discharge Disposition Patient Disposition: 30 Still Patient Discharge Condition Condition: Stable Discharge Details Diagnosis: Altered mental status, RAYSHAWN (acute kidney injury), Leukocytosis, Hypercalcemia Physicians Team ED Provider: Catarina Damon ED Midlevel Provider: Seamus Styles Primary Care Provider: UNKNOWN, Attending Provider: Unique Whipple Other Providers: Boris Traore ; Jessica Chen ; Vickie Boyle Status ED Status: Admitted Patient
--- NOTE | 2018-04-04 13:53 | XR ---
EXAM DATE: 04/04/2018 1:16 PM EDT AGE/SEX: 67 years / Male INDICATIONS: Cough. CLINICAL DATA: This is the patient's initial encounter. Patient reports that signs and symptoms have been present for 1 day and indicates a pain score of 0/10. MEDICAL/SURGICAL HISTORY: Carcinoma, lung. Hypertension. . Infusaport COMPARISON: [facility], CHEST 1V SINGLE AP, 03/22/2018. . FINDINGS: The right lung is clear and well aerated. No new or focal infiltrates are seen in the right lung. The re continues to be a large cavitary infiltrate/mass in the left lung. This is stable and unchanged co mpared to the prior examination. There is a left-sided central line in place. There is no evidence of pneumothorax. No significant pleural effusions. The heart size is stable. The bony structures are st able. Compared to the prior exam, no new or significant changes are demonstrated. CONCLUSION: No significant interval change compared to the prior examination. Electronically signed by: Ranjit Roberts MD 04/04/2018 1:52 PM EDT
[2018-04-04 14:16] LABS: Bilirubin,Urine Negative (Negative); Clarity,Urine Hazy (Clear); Color,Urine Amber (Yellw/Straw); Glucose,Urine (UA) Negative (Negative); Hyaline Casts,Urine 1 /lpf (0-3); Leukocyte Esterase,Urine Negative (Negative); Mucus,Urine Few /lpf (Occasional); Nitrite,Urine Negative (Negative); Specific Gravity,Urine 1.015 (1.002-1.035); Squamous Epithelial Cell,Urine <1 /hpf (0-5); Urobilinogen,Urine 4 or Greater mg/dL (Less than 2)
[2018-04-04 14:18] LABS: Baso # (Auto) 0.2 th/mm3 (0.0-0.2); Hematocrit 37.4 % (39.0-51.0); Hemoglobin 12.5 gm/dL (13.0-17.0); Lymph # (Auto) 0.6 th/mm3 (1.0-4.8); Lymph % (Auto) 3.5 % (9.0-44.0); Mean Corpuscular HGB Conc 33.3 % (32.0-36.0); Mean Corpuscular Hemoglobin 30.8 pg (27.0-34.0); Mean Corpuscular Volume 92.6 fL (80.0-100.0); Mean Platelet Volume 7.9 fL (7.0-11.0); Mono # (Auto) 1.4 th/mm3 (0.0-0.9); Mono % (Auto) 7.7 % (0.0-8.0); Neut # (Auto) 16.5 th/mm3 (1.8-7.7); Neut % (Auto) 87.8 % (16.0-70.0); Platelet Count 333 th/mm3 (150-450); Red Blood Count 4.04 mil/mm3 (4.50-5.90); Red Cell Distribution Width 16.5 % (11.6-17.2); White Blood Count 18.8 th/mm3 (4.0-11.0)
--- NOTE | 2018-04-04 14:44 | CT ---
EXAM DATE: 04/04/2018 1:21 PM EDT AGE/SEX: 67 years / Male INDICATIONS: Altered mental status, worsening since Wednesday. CLINICAL DATA: This is the patient's initial encounter. Patient reports that signs and symptoms have been present for 3 days and indicates a pain score of Nonresponsive. MEDICAL/SURGICAL HISTORY: Hypertension. Carcinoma, lung. None. RADIATION DOSE: 46.79 CTDI (mGy) COMPARISON: No prior exams available for comparison. TECHNIQUE: CT of the head without contrast. Using automated exposure control and adjustment of the mA and/or kV according to patient size, radiation dose was kept as low as reasonably achievable to ob tain optimal diagnostic quality images. DICOM format image data is available electronically for revi ew and comparison. FINDINGS: Cerebrum: Focal loss of johnson-white matter differentiation and hypodensity in the medial left frontal high convexities near the vertex. Mild diffuse cerebral atrophy. The ventricles are normal for degree of atrophy. No evidence of midline shift, or hemorrhage. No extraaxial fluid collections are seen. Posterior Fossa: The cerebellum and brainstem are intact. The 4th ventricle is midline. The cerebe llopontine angle is unremarkable. Extracranial: The visualized portion of the orbits is intact. Skull: The calvaria is intact. No evidence of skull fracture. CONCLUSION: 1. Subtle focal loss of johnson-white matter differentiation in the medial left frontal high convexitie s without significant mass effect. Findings are most consistent with an acute focal infarct. Given hi story of lung carcinoma, patient may benefit from contrast enhanced MRI examination for further juan cterization. . Electronically signed by: Dago Stone MD 04/04/2018 2:42 PM EDT
[2018-04-04 14:46] LABS: Albumin 1.8 g/dL (3.4-5.0); Carbon Dioxide 32.5 meq/L (21.0-32.0); Magnesium 2.1 mg/dL (1.5-2.5); Potassium 4.5 meq/L (3.5-5.1); Total Protein 6.2 g/dL (6.4-8.2)
[2018-04-04] MEDS ORDERED: Sod Chloride 0.9% Inj 1,000 ML IV.SIG SCH ×2 (15:00→15:15)
[2018-04-04 15:10] LABS: Calcium 15.6 mg/dL (8.5-10.1)
[2018-04-04] MEDS ORDERED: Zoledronic Acid Inj 4 MG in Sodium Chlor 0.9% Inj 150 ML IV.SIG ONE (15:15)
--- NOTE | 2018-04-04 16:01 | CT ---
EXAM DATE: 04/04/2018 3:47 PM EDT AGE/SEX: 67 years / Male INDICATIONS: Abdominal pain. CLINICAL DATA: This is the patient's initial encounter. Patient reports that signs and symptoms have been present for 1 day and indicates a pain score of 4/10. MEDICAL/SURGICAL HISTORY: Hypertension. Carcinoma, lung. Squamoscell carcinoma, gout, barretts esophagus. None. RADIATION DOSE: 16.38 CTDI (mGy) COMPARISON: [facility] [place], [place] ABDOMEN & PELVIS W/O CONTRAST, 03/16/2018. . TECHNIQUE: Multiple contiguous axial images were obtained through the abdomen. Images were obtained using multiple row detector helical technique. Using automated exposure control and adjustment of the mA and/or kV according to patient size, radiation dose was kept as low as reasonably achievable to o btain optimal diagnostic quality images. DICOM format image data is available electronically for rev iew and comparison. FINDINGS: LOWER LUNGS: The visualized lower lungs are clear. LIVER: There are a number of hepatic masses similar to prior examination. Very subtle perihepatic fl uid seen primarily along the posterior inferior margin of the liver. Layering density in the gallblad chaparrita likely reflects sludge. SPLEEN: Homogeneous density without enlargement. PANCREAS: Grossly unremarkable. KIDNEYS: Kidneys are symmetrical in size without evidence for radiopaque renal calculi or hydronephr osis. No significant contour deforming renal abnormality. Stable 2.8 cm indeterminate density exophyt ic hypodense lesion in the mid right kidney. ADRENAL GLANDS: Unremarkable. AORTA: Heavily calcified abdominal aorta. Bulky calcification in the right common femoral artery with likely at least severe stenosis at the bifurcation. BOWEL/MESENTERY: Mild to moderate sigmoid diverticulosis. The bowel loops are grossly unremarkable. The cecum and sigmoid colon have a normal configuration. Trace free fluid in the deep pelvis.. No danis e air. ABDOMINAL WALL: Intact. BLADDER: Contours are smooth. REPRODUCTIVE: Prominent with coarse calcifications. BONY STRUCTURES: Degenerative spondylosis of the lumbar spine most prominently at L3-4. CONCLUSION: 1. Innumerable hepatic masses consistent with metastatic disease. Hepatic capsular distention can re sult in abdominal pain. 2. Trace perihepatic and deep pelvic free fluid. 3. Bulky calcification in the right common femoral artery with likely at least severe stenosis of th e distal common femoral artery at the bifurcation. 4. Gallbladder sludge. 5. Colonic diverticulosis without definitive evidence for diverticulitis. 6. Additional stable ancillary findings, as above. Electronically signed by: Dago Stone MD 04/04/2018 4:00 PM EDT
[2018-04-04] MEDS ORDERED: Acetaminophen 325 MG Tablet PO ONE (16:06)
[2018-04-04] MEDS ORDERED: Dextrose 50% in Water 50 ML Vial IV.PUSH PRN (16:23)
[2018-04-04] MEDS ORDERED: Naloxone Inj 0.4 MG/ML Vial IV.PUSH PRN (17:23)
[2018-04-04] MEDS ORDERED: Acetaminophen 325 MG Tablet PO PRN (17:23)
[2018-04-04] MEDS ORDERED: oxyCODONE/Acetaminophen 10/325 Tablet PO PRN (17:23)
[2018-04-04] MEDS ORDERED: Morphine Inj 4 MG/ML Vial IV.PUSH PRN (17:23)
[2018-04-04] MEDS: Sod Chloride 0.9% Inj 1,000 ML IV.CONT SCH (17:25)
[2018-04-04] MEDS: Enoxaparin Inj 30 MG/0.3 ML Syringe SQ SCH (17:27)
[2018-04-04] MEDS: Insulin NovoLOG Aspart Correctional Sugar Inj SQ SCH ×2 (17:34→21:37)
--- NOTE | 2018-04-04 18:01 | P.HPIM ---
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 Boyle and had a port placed re-presented back to the emergency room due to worsening altered mental status during the past 3 days. His sister, who is also the healthcare proxy Ifeoma Berg assisted me in obtaining history due to patient's altered mental status. She stated that he had decompensated during the past 3-4 days and had poor p.o. intake and had difficulty even getting out of bed and conversing with her. She is noted increased slurred speech along with increased altered mental status. He has also been more combative during the past 48 hours. She is noted that he would have coughing spells but has not observed any signs of shortness of breath at the rehab facility. Most of the other history was gathered from reviewing old medical records. Inpatient Certification: I certify that the inpatient services were ordered in accordance with Medicare regulations governing the order. This includes certification that hospital inpatient services are reasonable and necessary and in the case of services not specified as inpatient-only under 42 CFR 419.22(n), that they are appropriately provided as inpatient services in accordance to with the 2-midnight benchmark under 43 CFR 412.3(e) Estimated Total Length of Stay (Days): 3 Plans for Post Hospital Care: SNF Review of Systems unobtainable due to mental status PMFSH - History History Provided By: Patient, Family Member, Medical Record - Medical History Medical History: Medical History (Last Updated 04/04/18 @ 17:37 by Unique Whipple MD) Liver metastasis Barretts esophagus Gout Hypertension Lung cancer Squamous cell carcinoma - Surgical History Surgical History: Surgical History (Last Updated 04/04/18 @ 17:37 by Unique Whipple MD) Port-A-Cath in place H/O knee surgery History of lung surgery History of removal of Port-a-Cath - Family History Family History: Family History (Last Updated 04/04/18 @ 17:38 by Unique Whipple MD) Mother Lung cancer Father Stomach cancer Other No history of diabetes mellitus No history of hypertension - Social History I have reviewed the patient's Social History: Yes - Tobacco History Second Hand Smoke Exposure: No Smoking Status: Former smoker Tobacco Type: Cigarettes - Alcohol History How Often Do You Have a Drink Containing Alcohol: Never - Substance Use History Substance History: No History of Abuse - Travel History Recent Travel in the [place] Within the Last 8 Weeks: No Recent Travel Out of the Country Within the Last 8 Weeks: No - Immunization History Tetanus Immunization: >5 Years Medications and Allergies Active Medications: Active Medications Acetaminophen (Tylenol) 650 mg PO Q6HR PRN PRN Reason: PAIN SCALE 1 TO 2 Aspirin (Aspirin Chew) 162 mg PO DAILY ADAM Dextrose (D50w Vial) 50 ml IV.PUSH UNSCH PRN PRN Reason: PER HYPOGLYCEMIA PROTOCOL Enalaprilat (Vasotec Inj) 1.25 mg IV.PUSH Q4H PRN PRN Reason: For SBP > 220 or DBP > 120 Enoxaparin Sodium (Lovenox Inj) 30 mg SQ Q24H ADAM Glucagon (Glucagon Inj) 1 mg OTHER UNSCH PRN PRN Reason: for Hypoglycemia Protocol Sodium Chloride (Ns Inj) 1,000 mls @ 0 mls/hr IV.SIG BOLUS ADAM Last Infusion: 04/04/18 16:12 Dose: Infused Sodium Chloride (Ns Inj) 1,000 mls @ 0 mls/hr IV.SIG BOLUS ADAM Last Infusion: 04/04/18 16:13 Dose: Infused Sodium Chloride (Ns Inj) 1,000 mls @ 100 mls/hr IV.CONT .Q10H ADAM Last Admin: 04/04/18 17:25 Dose: 100 mls/hr Insulin Aspart (Novolog Insulin Correctional Sugar Inj) 0 unit SQ ACHS ADAM; Protocol Morphine Sulfate (Morphine Inj) 4 mg IV.PUSH Q3H PRN PRN Reason: BREAKTHROUGH PAIN Naloxone HCl (Narcan Inj) 0.4 mg IV.PUSH UNSCH PRN PRN Reason: SEE LABEL COMMENTS Oxycodone/Acetaminophen (Percocet 10/325 Mg) 1 tab PO Q6H PRN PRN Reason: PAIN SCALE 6 TO 10 Oxycodone/Acetaminophen (Percocet 5/325 Mg) 1 tab PO Q6H PRN PRN Reason: PAIN SCALE 3 TO 5 Pravastatin Sodium (Pravachol) 40 mg PO HS ADAM Sodium Chloride (Ns Flush) 2 ml IV.FLUSH BID ADAM Sodium Chloride (Ns Flush) 2 ml IV.FLUSH PRN PRN PRN Reason: FLUSH AFTER USING IV ACCESS Allergies Allergy/AdvReac Type Severity Reaction Status Date / Time No Known Allergies Allergy Verified 04/04/18 13:18 Exam Vital signs: Vital Signs 04/04/18 13:09 04/04/18 13:56 04/04/18 15:19 Temperature 98.7 F Pulse Rate 98 H 76 91 H Respiratory Rate 20 19 Blood Pressure 169/67 H 109/57 L Pulse Oximetry 95 97 95 04/04/18 16:24 Temperature Pulse Rate 93 H Respiratory Rate 18 Blood Pressure 153/71 H Pulse Oximetry 99 Intake & Output 04/03/18 04/04/18 04/04/18 18:59 06:59 18:59 Intake Total 2154 Balance 2154 Weight 90.718 kg Intake: IV 2154 / 2154 NS Inj 1,000 ML @ Wide Open IV. 1999 / 1999 SIG BOLUS ADAM Rx#:[id number] Zometa Inj 4 MG In NS Inj 150 155 / 155 ML @ 155 mls/hr IV.SIG ONCE ONE Rx#:[id number] Narrative: GENERAL: Well-developed, frail white male with mild agitation SKIN: Warm and dry. HEAD: Atraumatic. Normocephalic. EYES: Pupils equal and round. No scleral icterus. No injection or drainage. ENT: No nasal bleeding or discharge. Mucous membranes pink and moist. NECK: Trachea midline. No JVD. CARDIOVASCULAR: Regular rate and rhythm. RESPIRATORY: No accessory muscle use. Clear to auscultation. Breath sounds equal bilaterally. GASTROINTESTINAL: Abdomen soft, non-tender, nondistended. Normoactive bowel sounds MUSCULOSKELETAL: Extremities without clubbing, cyanosis, or edema. No obvious deformities. NEUROLOGICAL: Awake and alert to person and place but not to time or situation. No obvious cranial nerve deficits. slurred speech with mumbled speech Bilateral lower extremity weakness with a 4 out of 5 motor strength. PSYCHIATRIC: Mild agitation Results - Labs CBC & Chem 7: 04/04/18 13:44 04/04/18 13:44 Labs: Short CBC 04/04/18 Range/Units 13:44 WBC 18.8 H (4.0-11.0) th/mm3 Hgb 12.5 L (13.0-17.0) gm/dL Hct 37.4 L (39.0-51.0) % Plt Count 333 D (150-450) th/mm3 BMP 04/04/18 13:44 Sodium 142 Potassium 4.5 Chloride 101 Carbon Dioxide 32.5 H BUN 97 H Creatinine 1.96 H Calcium 15.6 H* Cardiac Enzymes 04/04/18 04/04/18 Range/Units 13:44 13:44 Total Creatine Kinase 83 Cancelled (39-308) U/L Liver Function 04/04/18 Range/Units 13:44 Total Bilirubin 4.0 H (0.2-1.0) mg/dL AST 153 H (15-37) U/L ALT 70 (12-78) U/L Alkaline Phosphatase 390 H (45-117) U/L Albumin 1.8 L (3.4-5.0) g/dL Urine 04/04/18 Range/Units 13:55 Urine Color Miryam (Yellw/Straw) Urine Clarity Hazy H (Clear) Urine pH 5.0 (5.0-8.5) Ur Specific [place] 1.015 (1.002-1.035) Urine Protein Negative (Neg-Trace) mg/dL Urine Glucose (UA) Negative (Negative) mg/dL - Imaging Impressions Chest X-Ray 04/04/18 13:16 CONCLUSION: No significant interval change compared to the prior examination. Head CT 04/04/18 13:16 CONCLUSION: 1. Subtle focal loss of johnson-white matter differentiation in the medial left frontal high convexities without significant mass effect. Findings are most consistent with an acute focal infarct. Given history of lung carcinoma, patient may benefit from contrast enhanced MRI examination for further characterization. . Abdomen/Pelvis CT 04/04/18 15:14 CONCLUSION: 1. Innumerable hepatic masses consistent with metastatic disease. Hepatic capsular distention can result in abdominal pain. 2. Trace perihepatic and deep pelvic free fluid. 3. Bulky calcification in the right common femoral artery with likely at least severe stenosis of the distal common femoral artery at the bifurcation. 4. Gallbladder sludge. 5. Colonic diverticulosis without definitive evidence for diverticulitis. 6. Additional stable ancillary findings, as above. - ECG Prior ECG tracings: available for review Interpretation: Sinus rhythm with heart rate 89 Caprini VTE Risk Assessment Caprini VTE Risk Assessment: Moderate/High Risk (score >= 2) Caprini Risk Assessment Model: Point Value = 1 Point Value = 2 Point Value = 3 Point Value = 5 Age 41-60 Minor surgery BMI > 25 kg/m2 Swollen legs Varicose veins or History of unexplained or recurrent spontaneous Oral contraceptives or hormone replacement Sepsis (< 1 month) Serious lung disease, including pneumonia (< 1 month) Abnormal pulmonary function Acute myocardial infarction Congestive heart failure (< 1 month) History of inflammatory bowel disease Medical patient at bed rest Age 61-74 Arthroscopic surgery Major open surgery (> 45 min) Laparoscopic surgery (> 45 min) Malignancy Confined to bed (> 72 hours) Immobilizing plaster cast Central venous access Age >= 75 History of VTE Family history of VTE Factor V Leiden Prothrombin [id number] Lupus anticoagulant Anticardiolipin antibodies Elevated serum homocysteine Heparin-induced thrombocytopenia Other congenital or acquired thrombophilia Stroke (< 1 month) Elective arthroplasty Hip, pelvis, or leg fracture Acute spinal cord injury (< 1 month) Prophylaxis Regimen: Total Risk Factor Score Risk Level Prophylaxis Regimen 0-1 Low Early ambulation 2 Moderate Order ONE of the following: *Sequential Compression Device (SCD) *Heparin 5000 units SQ BID 3-4 Higher Order ONE of the following medications: *Heparin 5000 units SQ TID *Enoxaparin/Lovenox 40 mg SQ daily (WT < 150 kg, CrCl > 30 mL/min) *Enoxaparin/Lovenox 30 mg SQ daily (WT < 150 kg, CrCl > 10-29 mL/min) *Enoxaparin/Lovenox 30 mg SQ BID (WT < 150 kg, CrCl > 30 mL/min) AND/OR *Sequential Compression Device (SCD) 5 or more Highest Order ONE of the following medications: *Heparin 5000 units SQ TID (Preferred with Epidurals) *Enoxaparin/Lovenox 40 mg SQ daily (WT < 150 kg, CrCl > 30 mL/min) *Enoxaparin/Lovenox 30 mg SQ daily (WT < 150 kg, CrCl > 10-29 mL/min) *Enoxaparin/Lovenox 30 mg SQ BID (WT < 150 kg, CrCl > 30 mL/min) AND *Sequential Compression Device (SCD) Assessment and Plan - Plan 67-year-old white male with a history of metastatic squamous cell cancer first diagnosed in 2010 with continued decompensation 1. Acute encephalopathy likely multifactorial rule out metabolic due to hypercalcemia, uremia with acute kidney injury versus new acute CVA versus brain metastasis CT of the brain showed focal area of acute infarct. Will admit for further workup evaluation with MRI of the brain, carotids, 2D echo initiate aspirin and obtain neurology consultation. Speech therapy, occupational therapy and physical therapy will be initiated. 2. Metastatic squamous cell cancer -patient decompensating and with proper prognosis. Will obtain consultation with his oncologist Dr. Boyle. I discussed with his healthcare proxy today his sister who desires a DNR status. Short-term goals and long-term goals were also discussed. She stated that he has been open to hospice should his condition continue to decompensate. 3. Acute kidney injury superimposed on chronic kidney disease stage IIIV fluid hydration, avoid nephrotoxins and monitor. 4. Hypercalcemia due to metastasisIV fluid hydration supportive care and dose of pamidronate given in the ED. 5. Leukocytosis with elevated lactic acidrule out severe sepsis on presentation due to tachycardia and leukocytosis, patient may have early signs of aspiration versus of obstructive pneumonia. Will initiate Zosyn and monitor blood cultures repeat lactic acid and CBC in the morning. 6. COPD, chronicnot in acute exacerbation - DuoNeb treatments as needed. 7. DVT prophylaxisLovenox. 8. Malnutrition -Dietary consult and Ensure with meals Code Status: DNR status Discussed Condition With: Sister Ifeoma Berg healthcare proxy
--- NOTE | 2018-04-04 18:15 | US ---
EXAM DATE: 04/04/2018 12:00 AM EDT AGE/SEX: 67 years / Male INDICATIONS: Cerebrovascular accident. CLINICAL DATA: This is the patient's initial encounter. Patient reports that signs and symptoms have been present for 1 day and indicates a pain score of 0/10. MEDICAL/SURGICAL HISTORY: Hypertension. Barretts esophagus. GOUT. Lung cancer. Squamous cell ca rcinoma. . Knee surgery. Lung surgery. Port a cath placement. COMPARISON: No prior exams available for comparison. VELOCITY PARAMETERS: (UTO = unable to obtain) ICA/CCA Ratio: Right 0.6 , Left UTO ICA: Right 37.8 cm/sec, Left UTO cm/sec CCA: Right 65.5 cm/sec, Left UTO cm/sec ECA: Right 84.0 cm/sec, Left UTO cm/sec Vertebral: Right UTO cm/sec Left UTO cm/sec FINDINGS: Right Carotid: Severe arteriosclerotic plaque is visualized.The waveforms are within normal limits. Left Carotid: FINDINGS The waveforms are within normal limits. Other: None. CONCLUSION: 1. Right Internal Carotid Artery: Severe atherosclerotic calcified plaquing throughout the common an d internal carotid. No sonographic or Doppler findings of a hemodynamically significant stenosis, how ever 2. Left Internal Carotid Artery: Unable to obtain. Patient was extremely uncooperative. 3. Could not evaluate vertebral arteries. Again, patient refused to cooperate with the exam. Electronically signed by: León Garcia MD 04/04/2018 6:14 PM EDT
[2018-04-04] MEDS: Piperacil/Tazo 3.375 GM Premix 50 ML IV.SIG SCH (21:37)
--- NOTE | 2018-04-04 22:23 | MB ---
cc: Vickie Boyle MD,Unique ARAYA DATE: 04/04/2018 REFERRING PHYSICIAN: Unique Whipple MD CHIEF COMPLAINT: Dr. Whipple requested a consultation for Mr. Nagy regarding hypercalcemia associated with malignancy. HISTORY OF PRESENT ILLNESS: Mr. Nagy is a 67-year-old man, well known patient. 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 He had metastatic squamous cell cancer of unknown primary. He received concurrent chemotherapy and radiation and followed in clinic. He was last seen in 2013 and was lost to followup. He was seen again on his recent admission to the hospital on 03/16/2018 for hypercalcemia. He was feeling well over a short period of time. He became progressively worse with a decrease in appetite and difficulty eating. He went to the emergency room and was found to have severe hypercalcemia with a calcium of 16.9 and a creatinine of 1.84. A CT scan showed metastatic disease to the lung as well as innumerable metastatic disease to the liver. He was given IV fluid hydration first and pamidronate when his renal function improved the next day. He was pending to start palliative chemotherapy in the clinic. He had an appointment in the clinic today to start his venetie ira doublet with carboplatin and Abraxane. He was called at his half-way facility and it was found that he had been in bed over the last 3 days. His sister, who was about to bring him, could not arouse him. For this reason, they were advised to bring him to the emergency room. He was seen by Dr. Styles in the emergency room with altered mental status and a BUN of 97, creatinine of 1.96 and a calcium of 15.6. He was given hydration and Zometa 4 mg IV once without any dose adjustment. Hematology/oncology is consulted for his hypercalcemia of malignancy. REVIEW OF SYSTEMS: No review of systems is available from the patient as he is confused. He is on the floor at this point, having been stabilized in the emergency room. There are no family members with him. PAST MEDICAL HISTORY: Squamous cell cancer of unknown primary to T9, confirmed metastatic squamous cell cancer from liver biopsy, hypertension, COPD, chronic tobacco use. PAST SURGICAL HISTORY: Port placement, lung biopsy, mediastinoscopy, CT-guided liver biopsy. FAMILY HISTORY: Mother was a smoker. Mother had lung cancer. Father of colon cancer in his 50s. SOCIAL HISTORY: He has over a [id number] smoking history. He stopped smoking in 2010, but resumed again. He apparently tried to stop smoking at the time of his presentation last admission. ALLERGIES: NO KNOWN DRUG ALLERGIES. CURRENT MEDICATIONS: 1. Tylenol. 2. Aspirin. 3. Vasotec. 4. Lovenox. 5. NovoLog. 6. Morphine p.r.n. 7. Normal saline. PHYSICAL EXAMINATION: VITAL SIGNS: Temperature 98.7, heart rate 90, respiratory rate 16, blood pressure 153/71, saturation 98%. GENERAL: Mr. Nagy is a well-developed, well-nourished man. He is elderly. He looks his stated age. He is confused. HEENT: His pupils are round and reactive to light and accommodation. Oropharynx is clear. NEUROLOGIC: He appears calm. He mumbles. He does not follow commands. He is not able to state his name. NECK: Supple with no adenopathy. LUNGS: Clear anteriorly. CARDIOVASCULAR: Reveals normal rate and rhythm. ABDOMEN: Benign. EXTREMITIES: Lower extremities with no edema. He appears to move all 4 extremities. LABORATORY DATA: Significant for leukocytosis with a white blood cell count of 18.8, hemoglobin 12.5, platelet count 333. Chemistry is significant for a BUN of 97, creatinine 1.96, calcium 15.6, total bilirubin 4.0. ASSESSMENT AND PLAN: Mr. 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 He did well until current presentation with innumerable metastatic disease to the liver and lung metastases. He has had a workup and diagnostic evaluation performed in the clinic. His metastatic disease is confirmed from a liver biopsy on 03/17/2018. He had a metastatic poorly differentiated squamous cell carcinoma. Additional testing for MSI and PD-L1 was requested. He was pending to start his palliative chemotherapy and additional bisphosphonate therapy today. He was being called at his half-way facility or rehabilitation in order to bring him in earlier to start his treatment. Unfortunately, he had been declining over the last 3 days. He was advised to come into the hospital through his family member, a sister, who was bringing him in. I have reviewed the significant findings of recurrent hypercalcemia. He was given intravenous fluid hydration and a dose of Zometa. A folate is requested to monitor strict intake and output. He is currently incontinent in light of his confusion. He already has an elevated BUN and creatinine was given a dose of bisphosphonate therapy. We will monitor for worsening renal function acutely. We will also monitor for a decrease in the hypercalcemia. We hope that with resolution of the hypercalcemia he will recover. He has overt liver metastatic disease and is pending to start palliative chemotherapy. His performance status has significantly declined since his last hospitalization. If he is able to recover, we may be able to proceed with palliative therapy as we had planned. Otherwise, if his disease has progressed to the point that he does not return to his baseline, palliative care and hospice care may be most appropriate. His case was discussed with his nurse. We will monitor closely. MD SHERINE Proctor/belen , 08:14 PM , 08:28 PM
[2018-04-05] MEDS: Piperacil/Tazo 3.375 GM Premix 50 ML IV.SIG SCH ×4 (04:38→23:40)
[2018-04-05] MEDS: Sod Chloride 0.9% Inj 1,000 ML IV.CONT SCH ×2 (04:42→18:13)
[2018-04-05 06:29] LABS: Eos % (Auto) 0.1 % (0.0-4.0); Hemoglobin 10.9 gm/dL (13.0-17.0); Lymph # (Auto) 0.5 th/mm3 (1.0-4.8); Lymph % (Auto) 3.2 % (9.0-44.0); Mean Corpuscular Hemoglobin 30.9 pg (27.0-34.0); Mean Corpuscular Volume 93.6 fL (80.0-100.0); Mean Platelet Volume 7.5 fL (7.0-11.0); Mono # (Auto) 1.4 th/mm3 (0.0-0.9); Mono % (Auto) 8.2 % (0.0-8.0); Neut # (Auto) 15.1 th/mm3 (1.8-7.7); Neut % (Auto) 88.5 % (16.0-70.0); Platelet Count 259 th/mm3 (150-450); Red Blood Count 3.52 mil/mm3 (4.50-5.90); Red Cell Distribution Width 16.7 % (11.6-17.2); White Blood Count 17.1 th/mm3 (4.0-11.0)
[2018-04-05 07:06] LABS: Carbon Dioxide 29.9 meq/L (21.0-32.0); Chol/HDL Ratio 19.03 Ratio; HDL Cholesterol 9.3 mg/dL (40.0-60.0); Potassium 3.6 meq/L (3.5-5.1)
[2018-04-05 07:59] LABS: Total Protein 5.5 g/dL (6.4-8.2)
[2018-04-05 08:11] LABS: Calcium 14.5 mg/dL (8.5-10.1)
[2018-04-05] MEDS: Insulin NovoLOG Aspart Correctional Sugar Inj SQ SCH ×4 (08:12→20:28)
--- NOTE | 2018-04-05 12:39 | P.PNIM ---
Subjective Interval history: Slight improvement in hypercalcemia today. Etiology for hypercalcemia is likely related to cancer. Wheezing and respiratory congestion present, likely related to IV fluids. Physical Exam Vital signs: Vital Signs 04/04/18 13:09 04/04/18 13:56 04/04/18 15:19 Temperature 98.7 F Pulse Rate 98 H 76 91 H Respiratory Rate 20 19 Blood Pressure 169/67 H 109/57 L Pulse Oximetry 95 97 95 04/04/18 16:24 04/04/18 17:30 04/04/18 20:00 Temperature 98.2 F Pulse Rate 93 H 90 89 Respiratory Rate 18 16 20 Blood Pressure 153/71 H 153/71 H 125/67 Pulse Oximetry 99 95 93 L 04/05/18 00:00 04/05/18 00:10 04/05/18 04:00 Temperature 98 F 97.6 F Pulse Rate 89 86 96 H Respiratory Rate 24 20 Blood Pressure 106/57 L 116/63 Pulse Oximetry 93 L 92 L 04/05/18 07:44 04/05/18 08:00 Temperature 97.7 F Pulse Rate 109 H 102 H Respiratory Rate 20 Blood Pressure 139/77 Pulse Oximetry 91 L Intake & Output 04/04/18 04/05/18 04/05/18 18:59 06:59 18:59 Intake Total 2155 / 2155 1100 / 1100 Output Total 450 / 450 Balance 2155 / 2155 650 / 650 Weight 90.718 kg 80.6 kg Intake: IV 2155 / 2155 1100 / 1100 NS Inj 1,000 ML @ 100 mls/hr IV 1000 / 1000 .CONT .Q10H ADAM Rx#:[id number] Zosyn 3.375 GM Premix 50 ML @ 100 / 100 100 mls/hr IV.SIG Q8H ADAM Rx#: [id number] NS Inj 1,000 ML @ Wide Open IV. 1999 SIG BOLUS ADAM Rx#:[id number] Zometa Inj 4 MG In NS Inj 150 155 / 155 ML @ 155 mls/hr IV.SIG ONCE ONE Rx#:[id number] Output: Urine 450 / 450 Narrative: GENERAL: NAD, A&Ox3 HEAD: Normocephalic. NECK: Supple, trachea midline. No lymphadenopathy. EYES: No scleral icterus. No injection or drainage. CARDIOVASCULAR: Regular rate and rhythm without murmurs, gallops, or rubs. RESPIRATORY: Breath sounds equal bilaterally. No accessory muscle use. Trace bilateral wheezing, bilateral crackles at bases. GASTROINTESTINAL: Abdomen soft, non-tender, nondistended. MUSCULOSKELETAL: No cyanosis, or edema. SKIN: Warm and dry. NEURO: No focal neurological deficits. - Urinary Catheter Management Straight Cath placed during this visit: yes Reason for continuing: Hourly intake/output Insertion date: 04/04/18 Insertion time: 13:50 Indwelling Urethral Catheter Cath placed during this visit: yes Reason for continuing: Hourly intake/output Insertion date: 04/04/18 Insertion time: 22:40 Results - Labs CBC & Chem 7: 04/05/18 06:10 04/05/18 06:10 Laboratory Results - last 24 hr 04/04/18 04/04/18 04/04/18 13:44 13:44 13:44 WBC 18.8 H RBC 4.04 L Hgb 12.5 L Hct 37.4 L MCV 92.6 MCH 30.8 MCHC 33.3 RDW 16.5 Plt Count 333 D MPV 7.9 Neut % (Auto) 87.8 H Lymph % (Auto) 3.5 L [place] % (Auto) 7.7 Eos % (Auto) 0.0 Baso % (Auto) 1.0 Neut # (Auto) 16.5 H Lymph # (Auto) 0.6 L [place] # (Auto) 1.4 H Eos # (Auto) 0.0 Baso # (Auto) 0.2 WBC Differential . Differential Comment Auto diff final Sodium 142 Potassium 4.5 Chloride 101 Carbon Dioxide 32.5 H Anion Gap 9 BUN 97 H Creatinine 1.96 H Estimated GFR 34 L POC Glucose Random Glucose 118 H Lactic Acid Calcium 15.6 H* Prot Corrected Calcium Magnesium 2.1 Total Bilirubin 4.0 H AST 153 H ALT 70 Alkaline Phosphatase 390 H Ammonia 13 Total Creatine Kinase 83 Total Protein 6.2 L Albumin 1.8 L Triglycerides Cholesterol LDL Cholesterol, Calc HDL Cholesterol Cholesterol/HDL Ratio Urine Color Urine Clarity Urine pH Ur Specific [place] Urine Protein Urine Glucose (UA) Urine Ketones Urine Occult Blood Urine Nitrate Urine Bilirubin Urine Urobilinogen Ur Leukocyte Esterase Urine RBC Urine WBC Ur Squamous Epith Cells Hyaline Casts Urine Mucus Micro UA Comment Ur Microscopic Review Urine Culture Comments 04/04/18 04/04/18 04/04/18 13:44 13:55 14:50 WBC RBC Hgb Hct MCV MCH MCHC RDW Plt Count MPV Neut % (Auto) Lymph % (Auto) [place] % (Auto) Eos % (Auto) Baso % (Auto) Neut # (Auto) Lymph # (Auto) [place] # (Auto) Eos # (Auto) Baso # (Auto) WBC Differential Differential Comment Sodium Potassium Chloride Carbon Dioxide Anion Gap BUN Creatinine Estimated GFR POC Glucose Random Glucose Lactic Acid 2.5 H Calcium Prot Corrected Calcium Magnesium Total Bilirubin AST ALT Alkaline Phosphatase Ammonia Total Creatine Kinase Cancelled Total Protein Albumin Triglycerides Cholesterol LDL Cholesterol, Calc HDL Cholesterol Cholesterol/HDL Ratio Urine Color [place] Urine Clarity Hazy H Urine pH 5.0 Ur Specific [place] 1.015 Urine Protein Negative Urine Glucose (UA) Negative Urine Ketones Negative Urine Occult Blood Negative Urine Nitrate Negative Urine Bilirubin Negative Urine Urobilinogen 4 or greater Ur Leukocyte Esterase Negative Urine RBC 1 Urine WBC 2 Ur Squamous Epith Cells <1 Hyaline Casts 1 Urine Mucus Few H Micro UA Comment Cath-culture not ind Ur Microscopic Review Not Reportable Urine Culture Comments Cath-cult not ind 04/04/18 04/04/18 04/04/18 17:33 18:10 19:56 WBC RBC Hgb Hct MCV MCH MCHC RDW Plt Count MPV Neut % (Auto) Lymph % (Auto) [place] % (Auto) Eos % (Auto) Baso % (Auto) Neut # (Auto) Lymph # (Auto) [place] # (Auto) Eos # (Auto) Baso # (Auto) WBC Differential Differential Comment Sodium Potassium Chloride Carbon Dioxide Anion Gap BUN Creatinine Estimated GFR POC Glucose 121 H 101 Random Glucose Lactic Acid 2.3 H Calcium Prot Corrected Calcium Magnesium Total Bilirubin AST ALT Alkaline Phosphatase Ammonia Total Creatine Kinase Total Protein Albumin Triglycerides Cholesterol LDL Cholesterol, Calc HDL Cholesterol Cholesterol/HDL Ratio Urine Color Urine Clarity Urine pH Ur Specific [place] Urine Protein Urine Glucose (UA) Urine Ketones Urine Occult Blood Urine Nitrate Urine Bilirubin Urine Urobilinogen Ur Leukocyte Esterase Urine RBC Urine WBC Ur Squamous Epith Cells Hyaline Casts Urine Mucus Micro UA Comment Ur Microscopic Review Urine Culture Comments 04/05/18 04/05/18 04/05/18 06:10 06:10 06:10 WBC 17.1 H RBC 3.52 L Hgb 10.9 L Hct 33.0 L MCV 93.6 MCH 30.9 MCHC 33.0 RDW 16.7 Plt Count 259 MPV 7.5 Neut % (Auto) 88.5 H Lymph % (Auto) 3.2 L [place] % (Auto) 8.2 H Eos % (Auto) 0.1 Baso % (Auto) 0.0 Neut # (Auto) 15.1 H Lymph # (Auto) 0.5 L [place] # (Auto) 1.4 H Eos # (Auto) 0.0 Baso # (Auto) 0.0 WBC Differential . Differential Comment Auto diff final Sodium 147 H Potassium 3.6 D Chloride 108 H Carbon Dioxide 29.9 Anion Gap 9 BUN 88 H Creatinine 1.80 H Estimated GFR 38 L POC Glucose Random Glucose 78 Lactic Acid 1.9 Calcium 14.5 H* D Prot Corrected Calcium Magnesium Total Bilirubin AST ALT Alkaline Phosphatase Ammonia Total Creatine Kinase Total Protein 5.5 L D Albumin Triglycerides 348 H Cholesterol 177 LDL Cholesterol, Calc 98 HDL Cholesterol 9.3 L Cholesterol/HDL Ratio 19.03 Urine Color Urine Clarity Urine pH Ur Specific [place] Urine Protein Urine Glucose (UA) Urine Ketones Urine Occult Blood Urine Nitrate Urine Bilirubin Urine Urobilinogen Ur Leukocyte Esterase Urine RBC Urine WBC Ur Squamous Epith Cells Hyaline Casts Urine Mucus Micro UA Comment Ur Microscopic Review Urine Culture Comments 04/05/18 07:28 WBC RBC Hgb Hct MCV MCH MCHC RDW Plt Count MPV Neut % (Auto) Lymph % (Auto) [place] % (Auto) Eos % (Auto) Baso % (Auto) Neut # (Auto) Lymph # (Auto) [place] # (Auto) Eos # (Auto) Baso # (Auto) WBC Differential Differential Comment Sodium Potassium Chloride Carbon Dioxide Anion Gap BUN Creatinine Estimated GFR POC Glucose 110 Random Glucose Lactic Acid Calcium Prot Corrected Calcium Magnesium Total Bilirubin AST ALT Alkaline Phosphatase Ammonia Total Creatine Kinase Total Protein Albumin Triglycerides Cholesterol LDL Cholesterol, Calc HDL Cholesterol Cholesterol/HDL Ratio Urine Color Urine Clarity Urine pH Ur Specific [place] Urine Protein Urine Glucose (UA) Urine Ketones Urine Occult Blood Urine Nitrate Urine Bilirubin Urine Urobilinogen Ur Leukocyte Esterase Urine RBC Urine WBC Ur Squamous Epith Cells Hyaline Casts Urine Mucus Micro UA Comment Ur Microscopic Review Urine Culture Comments Microbiology 04/04/18 14:45 Blood - Peripheral Aerobic Blood Culture - Preliminary No growth in 1 day 04/04/18 14:45 Blood - Peripheral Anaerobic Blood Culture - Preliminary No growth in 1 day 04/04/18 14:50 Blood - Peripheral Aerobic Blood Culture - Preliminary No growth in 1 day 04/04/18 14:50 Blood - Peripheral Anaerobic Blood Culture - Preliminary No growth in 1 day - Imaging Impressions Carotid Doppler Study 04/04/18 00:00 CONCLUSION: 1. Right Internal Carotid Artery: Severe atherosclerotic calcified plaquing throughout the common and internal carotid. No sonographic or Doppler findings of a hemodynamically significant stenosis, however 2. Left Internal Carotid Artery: Unable to obtain. Patient was extremely uncooperative. 3. Could not evaluate vertebral arteries. Again, patient refused to cooperate with the exam. Chest X-Ray 04/04/18 13:16 CONCLUSION: No significant interval change compared to the prior examination. Head CT 04/04/18 13:16 CONCLUSION: 1. Subtle focal loss of johnson-white matter differentiation in the medial left frontal high convexities without significant mass effect. Findings are most consistent with an acute focal infarct. Given history of lung carcinoma, patient may benefit from contrast enhanced MRI examination for further characterization. . Abdomen/Pelvis CT 04/04/18 15:14 CONCLUSION: 1. Innumerable hepatic masses consistent with metastatic disease. Hepatic capsular distention can result in abdominal pain. 2. Trace perihepatic and deep pelvic free fluid. 3. Bulky calcification in the right common femoral artery with likely at least severe stenosis of the distal common femoral artery at the bifurcation. 4. Gallbladder sludge. 5. Colonic diverticulosis without definitive evidence for diverticulitis. 6. Additional stable ancillary findings, as above. Assessment and Plan - Plan 67-year-old white male with a history of metastatic squamous cell cancer first diagnosed in 2010 with continued decompensation Acute encephalopathy Multifactorial (cancer, metabolic, CVA) Not significantly improved thus far Continue to treat calcium levels Supportive care Hypercalcemia Slight improvement Related to metastasis Continue IV fluids Acute CVA Continue aspirin Neurology following Speech therapy, Occupational Therapy, physical therapy Metastatic squamous cell cancer Poor prognosis Oncology following DNR Possible candidate for hospice if no improvement Acute kidney injury Continue IV hydration (rate decrease) Avoid nephrotoxins Monitor renal function Leukocytosis Lactic acidosis Community-acquired pneumonia Continue Zosyn Follow clinically for improvement COPD Continue duo nebs Malnutrition May be from poor p.o. intake dietary consulted DVT prophylaxis Lovenox
--- NOTE | 2018-04-05 14:02 | P.PNONC ---
Subjective Interval history: Afebrile. Patient's nurse is at the bedside. She states no real change in his status. He remains confused, does not clearly answer my questions. Objective Vital Signs/Intake & Output: Vital Signs 04/04/18 13:56 04/04/18 15:19 04/04/18 16:24 Temperature Pulse Rate 76 91 H 93 H Respiratory Rate 19 18 Blood Pressure 109/57 L 153/71 H Pulse Oximetry 97 95 99 04/04/18 17:30 04/04/18 20:00 04/05/18 00:00 Temperature 98.2 F 98 F Pulse Rate 90 89 89 Respiratory Rate 16 20 24 Blood Pressure 153/71 H 125/67 106/57 L Pulse Oximetry 95 93 L 93 L 04/05/18 00:10 04/05/18 04:00 04/05/18 07:44 Temperature 97.6 F Pulse Rate 86 96 H 109 H Respiratory Rate 20 Blood Pressure 116/63 Pulse Oximetry 92 L 04/05/18 08:00 04/05/18 12:00 04/05/18 12:30 Temperature 97.7 F 97.6 F Pulse Rate 102 H 101 H 100 H Respiratory Rate 20 20 Blood Pressure 139/77 128/65 Pulse Oximetry 91 L 91 L Intake & Output 04/04/18 04/05/18 04/05/18 18:59 06:59 18:59 Intake Total 2155 / 2155 1100 / 1100 50 / 50 Output Total 450 / 450 Balance 2155 / 2155 650 / 650 50 / 50 Weight 90.718 kg 80.6 kg Intake: IV 2155 / 2155 1100 / 1100 50 / 50 NS Inj 1,000 ML @ 100 mls/hr IV 1000 / 1000 .CONT .Q10H ADAM Rx#:[id number] Zosyn 3.375 GM Premix 50 ML @ 100 / 100 50 / 50 100 mls/hr IV.SIG Q8H ADAM Rx#: [id number] NS Inj 1,000 ML @ Wide Open IV. 1999 SIG BOLUS ADAM Rx#:[id number] Zometa Inj 4 MG In NS Inj 150 155 / 155 ML @ 155 mls/hr IV.SIG ONCE ONE Rx#:[id number] Output: Urine 450 / 450 Result Diagrams: 04/05/18 06:10 04/05/18 06:10 Laboratory Results: Laboratory Results - last 24 hr 10/22/18 10/22/18 10/22/18 13:44 13:44 13:44 WBC 18.8 H RBC 4.04 L Hgb 12.5 L Hct 37.4 L MCV 92.6 MCH 30.8 MCHC 33.3 RDW 16.5 Plt Count 333 D MPV 7.9 Neut % (Auto) 87.8 H Lymph % (Auto) 3.5 L [place] % (Auto) 7.7 Eos % (Auto) 0.0 Baso % (Auto) 1.0 Neut # (Auto) 16.5 H Lymph # (Auto) 0.6 L [place] # (Auto) 1.4 H Eos # (Auto) 0.0 Baso # (Auto) 0.2 WBC Differential . Differential Comment Auto diff final Sodium 142 Potassium 4.5 Chloride 101 Carbon Dioxide 32.5 H Anion Gap 9 BUN 97 H Creatinine 1.96 H Estimated GFR 34 L POC Glucose Random Glucose 118 H Lactic Acid Calcium 15.6 H* Prot Corrected Calcium Magnesium 2.1 Total Bilirubin 4.0 H AST 153 H ALT 70 Alkaline Phosphatase 390 H Ammonia 13 Total Creatine Kinase 83 Total Protein 6.2 L Albumin 1.8 L Triglycerides Cholesterol LDL Cholesterol, Calc HDL Cholesterol Cholesterol/HDL Ratio Urine Color Urine Clarity Urine pH Ur Specific [place] Urine Protein Urine Glucose (UA) Urine Ketones Urine Occult Blood Urine Nitrate Urine Bilirubin Urine Urobilinogen Ur Leukocyte Esterase Urine RBC Urine WBC Ur Squamous Epith Cells Hyaline Casts Urine Mucus Micro UA Comment Ur Microscopic Review Urine Culture Comments 04/04/18 04/04/18 04/04/18 13:44 13:55 14:50 WBC RBC Hgb Hct MCV MCH MCHC RDW Plt Count MPV Neut % (Auto) Lymph % (Auto) [place] % (Auto) Eos % (Auto) Baso % (Auto) Neut # (Auto) Lymph # (Auto) [place] # (Auto) Eos # (Auto) Baso # (Auto) WBC Differential Differential Comment Sodium Potassium Chloride Carbon Dioxide Anion Gap BUN Creatinine Estimated GFR POC Glucose Random Glucose Lactic Acid 2.5 H Calcium Prot Corrected Calcium Magnesium Total Bilirubin AST ALT Alkaline Phosphatase Ammonia Total Creatine Kinase Cancelled Total Protein Albumin Triglycerides Cholesterol LDL Cholesterol, Calc HDL Cholesterol Cholesterol/HDL Ratio Urine Color [place] Urine Clarity Hazy H Urine pH 5.0 Ur Specific [place] 1.015 Urine Protein Negative Urine Glucose (UA) Negative Urine Ketones Negative Urine Occult Blood Negative Urine Nitrate Negative Urine Bilirubin Negative Urine Urobilinogen 4 or greater Ur Leukocyte Esterase Negative Urine RBC 1 Urine WBC 2 Ur Squamous Epith Cells <1 Hyaline Casts 1 Urine Mucus Few H Micro UA Comment Cath-culture not ind Ur Microscopic Review Not Reportable Urine Culture Comments Cath-cult not ind 04/04/18 04/04/18 04/04/18 17:33 18:10 19:56 WBC RBC Hgb Hct MCV MCH MCHC RDW Plt Count MPV Neut % (Auto) Lymph % (Auto) [place] % (Auto) Eos % (Auto) Baso % (Auto) Neut # (Auto) Lymph # (Auto) [place] # (Auto) Eos # (Auto) Baso # (Auto) WBC Differential Differential Comment Sodium Potassium Chloride Carbon Dioxide Anion Gap BUN Creatinine Estimated GFR POC Glucose 121 H 101 Random Glucose Lactic Acid 2.3 H Calcium Prot Corrected Calcium Magnesium Total Bilirubin AST ALT Alkaline Phosphatase Ammonia Total Creatine Kinase Total Protein Albumin Triglycerides Cholesterol LDL Cholesterol, Calc HDL Cholesterol Cholesterol/HDL Ratio Urine Color Urine Clarity Urine pH Ur Specific [place] Urine Protein Urine Glucose (UA) Urine Ketones Urine Occult Blood Urine Nitrate Urine Bilirubin Urine Urobilinogen Ur Leukocyte Esterase Urine RBC Urine WBC Ur Squamous Epith Cells Hyaline Casts Urine Mucus Micro UA Comment Ur Microscopic Review Urine Culture Comments 04/05/18 04/05/18 04/05/18 06:10 06:10 06:10 WBC 17.1 H RBC 3.52 L Hgb 10.9 L Hct 33.0 L MCV 93.6 MCH 30.9 MCHC 33.0 RDW 16.7 Plt Count 259 MPV 7.5 Neut % (Auto) 88.5 H Lymph % (Auto) 3.2 L [place] % (Auto) 8.2 H Eos % (Auto) 0.1 Baso % (Auto) 0.0 Neut # (Auto) 15.1 H Lymph # (Auto) 0.5 L [place] # (Auto) 1.4 H Eos # (Auto) 0.0 Baso # (Auto) 0.0 WBC Differential . Differential Comment Auto diff final Sodium 147 H Potassium 3.6 D Chloride 108 H Carbon Dioxide 29.9 Anion Gap 9 BUN 88 H Creatinine 1.80 H Estimated GFR 38 L POC Glucose Random Glucose 78 Lactic Acid 1.9 Calcium 14.5 H* D Prot Corrected Calcium Magnesium Total Bilirubin AST ALT Alkaline Phosphatase Ammonia Total Creatine Kinase Total Protein 5.5 L D Albumin Triglycerides 348 H Cholesterol 177 LDL Cholesterol, Calc 98 HDL Cholesterol 9.3 L Cholesterol/HDL Ratio 19.03 Urine Color Urine Clarity Urine pH Ur Specific [place] Urine Protein Urine Glucose (UA) Urine Ketones Urine Occult Blood Urine Nitrate Urine Bilirubin Urine Urobilinogen Ur Leukocyte Esterase Urine RBC Urine WBC Ur Squamous Epith Cells Hyaline Casts Urine Mucus Micro UA Comment Ur Microscopic Review Urine Culture Comments 04/05/18 07:28 WBC RBC Hgb Hct MCV MCH MCHC RDW Plt Count MPV Neut % (Auto) Lymph % (Auto) [place] % (Auto) Eos % (Auto) Baso % (Auto) Neut # (Auto) Lymph # (Auto) [place] # (Auto) Eos # (Auto) Baso # (Auto) WBC Differential Differential Comment Sodium Potassium Chloride Carbon Dioxide Anion Gap BUN Creatinine Estimated GFR POC Glucose 110 Random Glucose Lactic Acid Calcium Prot Corrected Calcium Magnesium Total Bilirubin AST ALT Alkaline Phosphatase [place]monia Total Creatine Kinase Total Protein Albumin Triglycerides Cholesterol LDL Cholesterol, Calc HDL Cholesterol Cholesterol/HDL Ratio Urine Color Urine Clarity Urine pH Ur Specific [place] Urine Protein Urine Glucose (UA) Urine Ketones Urine Occult Blood Urine Nitrate Urine Bilirubin Urine Urobilinogen Ur Leukocyte Esterase Urine RBC Urine WBC Ur Squamous Epith Cells Hyaline Casts Urine Mucus Micro UA Comment Ur Microscopic Review Urine Culture Comments Culture Results: Microbiology 04/04/18 14:45 Aerobic Blood Culture - Preliminary Blood - Peripheral No growth in 1 day Anaerobic Blood Culture - Preliminary No growth in 1 day 04/04/18 14:50 Aerobic Blood Culture - Preliminary Blood - Peripheral No growth in 1 day Anaerobic Blood Culture - Preliminary No growth in 1 day Imaging Studies: Impressions Carotid Doppler Study 04/04/18 00:00 CONCLUSION: 1. Right Internal Carotid Artery: Severe atherosclerotic calcified plaquing throughout the common and internal carotid. No sonographic or Doppler findings of a hemodynamically significant stenosis, however 2. Left Internal Carotid Artery: Unable to obtain. Patient was extremely uncooperative. 3. Could not evaluate vertebral arteries. Again, patient refused to cooperate with the exam. Chest X-Ray 04/04/18 13:16 CONCLUSION: No significant interval change compared to the prior examination. Head CT 04/04/18 13:16 CONCLUSION: 1. Subtle focal loss of johnson-white matter differentiation in the medial left frontal high convexities without significant mass effect. Findings are most consistent with an acute focal infarct. Given history of lung carcinoma, patient may benefit from contrast enhanced MRI examination for further characterization. . Abdomen/Pelvis CT 04/04/18 15:14 CONCLUSION: 1. Innumerable hepatic masses consistent with metastatic disease. Hepatic capsular distention can result in abdominal pain. 2. Trace perihepatic and deep pelvic free fluid. 3. Bulky calcification in the right common femoral artery with likely at least severe stenosis of the distal common femoral artery at the bifurcation. 4. Gallbladder sludge. 5. Colonic diverticulosis without definitive evidence for diverticulitis. 6. Additional stable ancillary findings, as above. Medications: Active Medications Generic Name Dose Route Start Last Admin Trade Name Freq PRN Reason Stop Dose Admin Aspirin 162 mg 04/04/18 17:00 04/04/18 17:27 Aspirin Chew PO 162 mg DAILY ADAM Administration Enoxaparin Sodium 30 mg 04/04/18 17:00 04/04/18 17:27 Lovenox Inj SQ 30 mg Q24H ADAM Administration Sodium Chloride 1,000 mls @ 30 mls/hr 04/04/18 16:30 04/05/18 10:15 Ns Inj IV.CONT 30 mls/hr .Q24H ADAM Infusion Insulin Aspart 0 unit 04/04/18 17:00 04/05/18 11:47 Novolog Insulin Correctional Sugar Inj SQ Not Given ACHS ADAM Protocol Pravastatin Sodium 40 mg 04/04/18 21:00 04/04/18 21:37 Pravachol PO Not Given HS ADAM Sodium Chloride 2 ml 04/04/18 21:00 04/05/18 10:43 Ns Flush IV.FLUSH 2 ml BID ADAM Administration Objective Remarks: GENERAL: Chronically ill-appearing thin, male patient, no acute distress.+ Confused. SKIN: Warm and dry. HEAD: Normocephalic. EYES: No scleral icterus. No injection or drainage. NECK: Supple, trachea midline. CARDIOVASCULAR: Regular rate and rhythm without murmurs. RESPIRATORY: Anterior breath sounds equal bilaterally, expiratory wheezes. No accessory muscle use. GASTROINTESTINAL: Abdomen flat, soft, nondistended. +tender lower quadrants. EXTREMITIES: No cyanosis, or edema. MUSCULOSKELETAL: Adequate muscle tone. NEUROLOGICAL: Awake, not oriented to person place or time. Answers questions with incomprehensible mumbles. PSYCHIATRIC: Calm. Assessment/Plan - Plan Mr. 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 He received concurrent chemotherapy and radiation, last seen in 2013 and was lost to follow-up. March 16, 2018 patient was readmitted for decreased appetite and difficulty eating. He was found to have severe hypercalcemia and CT scan showed metastatic disease to the lung as well as innumerable metastatic disease to the liver. The patient was pending start of palliative chemotherapy in the outpatient clinic. He is again readmitted at this facility for hypercalcemia, altered mental status and renal insufficiency. 1. Metastatic poorly differentiated squamous cell carcinoma, patient was scheduled to start palliative chemotherapy. He has had a rapid decline in his performance status. Await recovery of acute illness and performance status. 2. Hypercalcemia, calcium level 14.5 today, was 15.6 yesterday. 3. Acute kidney injury, currently receiving IV hydration. Management per attending. 4. Continue supportive care.
--- NOTE | 2018-04-05 14:35 | ECHRPT ---
Indication: cva/tia CONCLUSIONS No definite regional wall motion abnormalities are present. Normal left ventricular size. Wall thickness is measured at the upper limits of normal. The left ventricular systolic function is normal with an estimated ejection fraction in the range of 60-65%. Minimal aortic valve sclerosis is present. There is trace tricuspid valve regurgitation. Trace mitral valve regurgitation. Possible small pericardial effusion present. BP: / HR: Rhythm: MEASUREMENTS (Male / Female) Normal Values Technical Quality: 2D ECHO LV Diastolic Diameter PLAX 3.5 cm 4.2 - 5.9 / 3.9 - 5.3 cm LV Systolic Diameter PLAX 2.5 cm IVS Diastolic Thickness 1.3 cm 0.6 - 1.0 / 0.6 - 0.9 cm LVPW Diastolic Thickness 1.1 cm 0.6 - 1.0 / 0.6 - 0.9 cm LV Relative Wall Thickness 0.7 RV Internal Dim ED PLAX 2.9 cm LVOT Diameter 2.2 cm LV Ejection Fraction MOD 4C 68.2 % LV Ejection Fraction 4C AL 68.0 % M-MODE Aortic Root Diameter MM 3.0 cm LA Systolic Diameter MM 2.6 cm LA Ao Ratio MM 0.9 AV Cusp Separation MM 2.3 cm DOPPLER AV Peak Velocity 168.0 cm/s AV Peak Gradient 11.3 mmHg LVOT Peak Velocity 120.0 cm/s LVOT Peak Gradient 5.8 mmHg AV Area Cont Eq pk 2.7 cm Mitral E Point Velocity 58.2 cm/s Mitral A Point Velocity 107.0 cm/s Mitral E to A Ratio 0.5 LV E' Lateral Velocity 6.4 cm/s Mitral E to LV E' Lateral Ratio 9.1 LV E' Septal Velocity 5.7 cm/s Mitral E to LV E' Septal Ratio 10.3 TR Peak Velocity 346.0 cm/s TR Peak Gradient 47.9 mmHg Right Atrial Pressure 10.0 mmHg Pulmonary Artery Systolic Pressu 57.9 mmHg Right Ventricular Systolic Press 57.9 mmHg PV Peak Velocity 119.0 cm/s PV Peak Gradient 5.7 mmHg FINDINGS LEFT VENTRICLE No definite regional wall motion abnormalities are present. Normal left ventricular size. Wall thickness is measured at the upper limits of normal. The left ventricular systolic function is normal with an estimated ejection fraction in the range of 60-65%. RIGHT VENTRICLE Normal right ventricular size and systolic function. LEFT ATRIUM The left atrial size is normal. RIGHT ATRIUM The right atrial size is normal. ATRIAL SEPTUM Normal atrial septal thickness without atrial level shunting by limited color doppler interrogation. AORTA The aortic root and proximal ascending aorta are normal in size on limited imaging. MITRAL VALVE Trace mitral valve regurgitation. AORTIC VALVE Minimal aortic valve sclerosis is present. TRICUSPID VALVE There is trace tricuspid valve regurgitation. PULMONARY VALVE No pulmonary valve regurgitation or stenosis. VESSELS The inferior vena cava is normal in size. PERICARDIUM Possible small pericardial effusion present. Marvin Cam MD (Electronically Signed) Final Date:05 April 2018 14:34 Amended: 05 April 2018 16:20
--- NOTE | 2018-04-05 15:50 | P.DIET ---
Nutritional Evaluation Type of nutrition evaluation: initial Nutrition screening: [facility] [place] (Malnutrition) Subjective Subjective Comments: Confused Objective - Diagnosis Hypercalcemia, AMS, RAYSHAWN - Objective % IBW: 107 (IBW = 166#) Body Weight Used for Calculations: Actual (80.6 kg) Energy Needs - Lower Range (kCal/kg): 30 Energy Needs - Upper Range (kCal/kg): 35 Lower Limit kCal/kg (kCals): 2,418 Upper Limit kCal/kg (kCals): 2,821 Lower Limit Protein Factor (Grams per Kg): 1.2 Upper Limit Protein Factor (Grams per Kg): 1.5 Lower Protein Needs (Protein): 97 Upper Protein Needs (Protein): 121 Dietitian Reviewed in Medical Record: Curent medications, Intake & Output, Labs , Medical history Diet Order: NPO Objective Comments: Labs: Na 147, BUN/creat 88/1.80, Est GFR 38, TG 348, Ca 145 Assessment Assessment: 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 He remains npo at this time. RD will monitor diet advance, po intake and assess for the need of supplements. RD will be available for TF recommendations if this is consistent with goals of care. Recommendations: RD following. Dietitian to Monitor: Lab values, Intake & Output, Weight change, Diet advancement, Wound/skin status, Medical course
--- NOTE | 2018-04-05 15:58 | MB ---
cc: Boris Traore MD, PhD DATE: 04/05/2018 REASON FOR CONSULTATION: Mental status change, possible stroke. HISTORY OF PRESENT ILLNESS: Mr. 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 He has had recurrent disease involving the lung and liver. He developed hypercalcemia, was admitted with confusion, disorientation, slurring of his speech. No definite focal symptoms. No seizure-like activity. He had a CT scan of the brain done, which showed loss of johnson-white differentiation in the left frontal high convexity without mass effect. Possible stroke versus metastatic tumor. 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 CURRENT MEDICATIONS: 1. Tylenol. 2. Aspirin. 3. Vasotec. 4. Lovenox. 5. Novolin insulin. 6. Narcan p.r.n. 7. Morphine p.r.n. 8. Percocet p.r.n. 9. Piperacillin. 10. Pravachol. NEUROLOGICAL EXAMINATION: VITAL SIGNS: Blood pressure is 128/65, pulse is 101, temperature 97.6. HIGHER CLINICAL FUNCTION: The patient is lethargic, but arousable, is disoriented to date and place. Speech is dysarthric. He is very confused. Cranial nerves intact. Motor exam: He has no focal deficits. Reflexes are symmetric. IMAGING STUDIES: CT of the brain reveals an area of abnormal johnson-white differentiation in the medial left frontal convexity. Carotid ultrasound was limited. Unable to evaluate the left carotid due to patient movement. There is evidence of severe atherosclerotic plaque in the right common and internal carotid artery, but no significant stenosis. Vertebral arteries could not be evaluated. Echocardiogram, ejection fraction, 60% to 65%. Left ventricular wall thickness is within the upper limits of normal, normal left ventricular size. Right ventricle is normal in size and function. Left atrial size normal. Right atrial size normal. Atrial septum is normal. Aorta normal in size. Tricuspid valve shows trace regurgitation. LABORATORY DATA: The white count is 18,800, hemoglobin 12.5, hematocrit 37.4%, platelet count 333,000. Sodium is 147, potassium 3.6, chloride 108, CO2 29.9, BUN is 88, creatinine 1.8, GFR is 38, glucose is 78, calcium 14.5. IMPRESSION: Mental status change probably related to hypercalcemia and left frontal abnormality. Rule out stroke. Rule out metastatic tumor. RECOMMENDATIONS: We will try once again to get an MRI of the brain with sedation to further define the left frontal lesion. We will also obtain an EEG to rule out focal seizure activity. Boris Traore MD, PhD HENRY/ct , 03:33 PM , 03:42 PM
[2018-04-05 18:10] LABS: Hemoglobin A1c 4.2 % (4.3-6.0)
[2018-04-05] MEDS: Enoxaparin Inj 30 MG/0.3 ML Syringe SQ SCH (18:13)
[2018-04-06] MEDS: Sod Chloride 0.9% Inj 1,000 ML IV.CONT SCH ×2 (03:10→12:07)
[2018-04-06] MEDS: Piperacil/Tazo 3.375 GM Premix 50 ML IV.SIG SCH ×3 (05:09→18:43)
[2018-04-06 05:42] LABS: Baso # (Auto) 0.2 th/mm3 (0.0-0.2); Baso % (Auto) 0.7 % (0.0-2.0); Hemoglobin 11.2 gm/dL (13.0-17.0); Lymph # (Auto) 0.6 th/mm3 (1.0-4.8); Lymph % (Auto) 2.9 % (9.0-44.0); Mean Corpuscular HGB Conc 33.9 % (32.0-36.0); Mean Corpuscular Hemoglobin 31.4 pg (27.0-34.0); Mean Corpuscular Volume 92.7 fL (80.0-100.0); Mono # (Auto) 1.3 th/mm3 (0.0-0.9); Mono % (Auto) 6.1 % (0.0-8.0); Neut # (Auto) 19.6 th/mm3 (1.8-7.7); Neut % (Auto) 90.3 % (16.0-70.0); Platelet Count 231 th/mm3 (150-450); Red Blood Count 3.57 mil/mm3 (4.50-5.90); Red Cell Distribution Width 17.1 % (11.6-17.2); White Blood Count 21.7 th/mm3 (4.0-11.0)
[2018-04-06 06:23] LABS: Albumin 1.6 g/dL (3.4-5.0); Calcium 14.1 mg/dL (8.5-10.1); Carbon Dioxide 28.9 meq/L (21.0-32.0); Potassium 3.5 meq/L (3.5-5.1); Total Protein 5.6 g/dL (6.4-8.2)
[2018-04-06] MEDS: Insulin NovoLOG Aspart Correctional Sugar Inj SQ SCH ×3 (08:00→17:34)
--- NOTE | 2018-04-06 10:53 | P.PNNEU ---
Subjective Subjective Comments: no new sx. Active Medications: Active Medications Acetaminophen (Tylenol) 650 mg PO Q6HR PRN PRN Reason: PAIN SCALE 1 TO 2 Aspirin (Aspirin Chew) 162 mg PO DAILY [facility] Last Admin: 04/06/18 10:00 Dose: Not Given Dextrose (D50w Vial) 50 ml IV.PUSH UNSCH PRN PRN Reason: PER HYPOGLYCEMIA PROTOCOL Enalaprilat (Vasotec Inj) 1.25 mg IV.PUSH Q4H PRN PRN Reason: For SBP > 220 or DBP > 120 Enoxaparin Sodium (Lovenox Inj) 30 mg SQ Q24H [facility] Last Admin: 04/05/18 18:13 Dose: 30 mg Glucagon (Glucagon Inj) 1 mg OTHER UNSCH PRN PRN Reason: for Hypoglycemia Protocol Sodium Chloride (Ns Inj) 1,000 mls @ 75 mls/hr IV.CONT .[id number] [facility] Last Admin: 04/06/18 03:10 Dose: 30 mls/hr Piperacillin/Tazobactam/Dextrose (Zosyn 3.375 Gm Premix) 50 mls @ 100 mls/hr IV.SIG Q6H [facility] Last Infusion: 04/06/18 05:51 Dose: Infused Insulin Aspart (Novolog Insulin Correctional Sugar Inj) 0 unit SQ ACHS [facility]; Protocol Last Admin: 04/06/18 08:00 Dose: Not Given Morphine Sulfate (Morphine Inj) 4 mg IV.PUSH Q3H PRN PRN Reason: BREAKTHROUGH PAIN Naloxone HCl (Narcan Inj) 0.4 mg IV.PUSH UNSCH PRN PRN Reason: SEE LABEL COMMENTS Oxycodone/Acetaminophen (Percocet 10/325 Mg) 1 tab PO Q6H PRN PRN Reason: PAIN SCALE 6 TO 10 Oxycodone/Acetaminophen (Percocet 5/325 Mg) 1 tab PO Q6H PRN PRN Reason: PAIN SCALE 3 TO 5 Pravastatin Sodium (Pravachol) 40 mg PO HS [facility] Last Admin: 04/05/18 21:02 Dose: Not Given Sodium Chloride (Ns Flush) 2 ml IV.FLUSH BID [facility] Last Admin: 04/06/18 10:01 Dose: 2 ml Sodium Chloride (Ns Flush) 2 ml IV.FLUSH PRN PRN PRN Reason: FLUSH AFTER USING IV ACCESS Allergies/Adverse Reactions: Allergies Allergy/AdvReac Type Severity Reaction Status Date / Time No Known Allergies Allergy Verified 04/04/18 13:18 Physical Exam Vital signs: Vital Signs 04/05/18 12:00 04/05/18 12:30 04/05/18 15:55 Temperature 97.6 F Pulse Rate 101 H 100 H 101 H Respiratory Rate 20 Blood Pressure 128/65 Pulse Oximetry 91 L 04/05/18 16:00 04/05/18 20:00 04/05/18 21:12 Temperature 97.6 F 97.7 F Pulse Rate 115 H 102 H 112 H Respiratory Rate 20 18 Blood Pressure 146/80 H 98/63 L Pulse Oximetry 93 L 93 L 04/05/18 21:20 04/06/18 00:00 04/06/18 04:00 Temperature 97.6 F 98.2 F Pulse Rate 103 H 103 H Respiratory Rate 18 18 Blood Pressure 131/65 110/59 L Pulse Oximetry 97 91 L 91 L 04/06/18 08:00 Temperature 98.1 F Pulse Rate 108 H Respiratory Rate 20 Blood Pressure 125/63 Pulse Oximetry 97 Intake & Output 04/05/18 04/06/18 04/06/18 18:59 06:59 18:59 Intake Total 100 / 100 1100 / 1100 Output Total 1375 / 1375 500 / 500 Balance -1275 / -1275 600 / 600 Weight 79.1 kg Intake: IV 100 / 100 1100 / 1100 NS Inj 1,000 ML @ 30 mls/hr IV. 1000 / 1000 CONT .Q24H [facility] Rx#:[id number] Zosyn 3.375 GM Premix 50 ML @ 100 / 100 100 / 100 100 mls/hr IV.SIG Q6H [facility] Rx#: [id number] Oral 0 / 0 0 / 0 Output: Urine 1100 / 1100 500 / 500 Urine/Stool Mix 0 / 0 Urine Amount (Catheter) 275 / 275 Indwelling Urethral Catheter 275 / 275 Other: Date of Last Bowel Movement 04/05/18 # Bowel Movements 0 - Routine Neurological Exam Present: CN II-XII intact alert, follow only simple commands. minimal speech output cn intact MOTOR no focal deficit - Urinary Catheter Management Straight Cath placed during this visit: yes Reason for continuing: Hourly intake/output Insertion date: 04/04/18 Insertion time: 13:50 Indwelling Urethral Catheter Cath placed during this visit: yes Reason for continuing: Hourly intake/output Insertion date: 04/04/18 Insertion time: 22:40 Objective Laboratory Results - last 24 hr 04/05/18 04/05/18 04/06/18 06:10 18:12 05:00 WBC 21.7 H RBC 3.57 L Hgb 11.2 L Hct 33.0 L MCV 92.7 MCH 31.4 MCHC 33.9 RDW 17.1 Plt Count 231 MPV 8.0 Neut % (Auto) 90.3 H Lymph % (Auto) 2.9 L [place] % (Auto) 6.1 Eos % (Auto) 0.0 Baso % (Auto) 0.7 Neut # (Auto) 19.6 H Lymph # (Auto) 0.6 L [place] # (Auto) 1.3 H Eos # (Auto) 0.0 Baso # (Auto) 0.2 WBC Differential . Differential Comment Auto diff final Sodium Potassium Chloride Carbon Dioxide Anion Gap BUN Creatinine Estimated GFR POC Glucose 87 Random Glucose Hemoglobin A1c 4.2 L Calcium Prot Corrected Calcium Total Bilirubin AST ALT Alkaline Phosphatase Total Protein Albumin 04/06/18 04/06/18 05:00 08:24 WBC RBC Hgb Hct MCV MCH MCHC RDW Plt Count MPV Neut % (Auto) Lymph % (Auto) [place] % (Auto) Eos % (Auto) Baso % (Auto) Neut # (Auto) Lymph # (Auto) [place] # (Auto) Eos # (Auto) Baso # (Auto) WBC Differential Differential Comment Sodium 152 H Potassium 3.5 Chloride 111 H Carbon Dioxide 28.9 Anion Gap 12 BUN 99 H Creatinine 2.15 H Estimated GFR 31 L POC Glucose 91 Random Glucose 83 Hemoglobin A1c Calcium 14.1 H* Prot Corrected Calcium Total Bilirubin 3.9 H AST 132 H ALT 66 Alkaline Phosphatase 284 H Total Protein 5.6 L Albumin 1.6 L Microbiology 04/04/18 14:45 Aerobic Blood Culture - Preliminary Blood - Peripheral No growth in 1 day Anaerobic Blood Culture - Preliminary No growth in 1 day 04/04/18 14:50 Aerobic Blood Culture - Preliminary Blood - Peripheral No growth in 1 day Anaerobic Blood Culture - Preliminary No growth in 1 day Review/Management - Diagnosis (1) CVA (cerebral vascular accident) Code(s): I63.9 - Cerebral infarction, unspecified Status: Acute Current Visit: Yes - Review/Management Plan: Left frontal cva vs metastatic tumor Recommend --reattempt MRI brain with sedation. Reattempt carotid us with sedation asa 81 mg daiy for possible cva
--- NOTE | 2018-04-06 11:24 | P.PNIM ---
Subjective Interval history: Patient's mental status is not significantly improved. He failed swallow study and is n.p.o. status currently. No worsening of calcium levels but they remain about what they were yesterday. Creatinine slightly worse. Physical Exam Vital signs: Vital Signs 04/05/18 12:00 04/05/18 12:30 04/05/18 15:55 Temperature 97.6 F Pulse Rate 101 H 100 H 101 H Respiratory Rate 20 Blood Pressure 128/65 Pulse Oximetry 91 L 04/05/18 16:00 04/05/18 20:00 04/05/18 21:12 Temperature 97.6 F 97.7 F Pulse Rate 115 H 102 H 112 H Respiratory Rate 20 18 Blood Pressure 146/80 H 98/63 L Pulse Oximetry 93 L 93 L 04/05/18 21:20 04/06/18 00:00 04/06/18 04:00 Temperature 97.6 F 98.2 F Pulse Rate 103 H 103 H Respiratory Rate 18 18 Blood Pressure 131/65 110/59 L Pulse Oximetry 97 91 L 91 L 04/06/18 08:00 Temperature 98.1 F Pulse Rate 108 H Respiratory Rate 20 Blood Pressure 125/63 Pulse Oximetry 97 Intake & Output 04/05/18 04/06/18 04/06/18 18:59 06:59 18:59 Intake Total 100 / 100 1100 / 1100 Output Total 1375 / 1375 500 / 500 Balance -1275 / -1275 600 / 600 Weight 79.1 kg Intake: IV 100 / 100 1100 / 1100 NS Inj 1,000 ML @ 30 mls/hr IV. 1000 / 1000 CONT .Q24H [facility] Rx#:[id number] Zosyn 3.375 GM Premix 50 ML @ 100 / 100 100 / 100 100 mls/hr IV.SIG Q6H [facility] Rx#: [id number] Oral 0 / 0 0 / 0 Output: Urine 1100 / 1100 500 / 500 Urine/Stool Mix 0 / 0 Urine Amount (Catheter) 275 / 275 Indwelling Urethral Catheter 275 / 275 Other: Date of Last Bowel Movement 04/05/18 # Bowel Movements 0 Narrative: GENERAL: NAD, A&Ox0 HEAD: Normocephalic. NECK: Supple, trachea midline. No lymphadenopathy. EYES: No scleral icterus. No injection or drainage. CARDIOVASCULAR: Regular rate and rhythm without murmurs, gallops, or rubs. RESPIRATORY: Breath sounds equal bilaterally. No accessory muscle use. Trace bilateral wheezing, bilateral crackles at bases. GASTROINTESTINAL: Abdomen soft, non-tender, nondistended. MUSCULOSKELETAL: No cyanosis, or edema. SKIN: Warm and dry. NEURO: No focal neurological deficits. - Urinary Catheter Management Straight Cath placed during this visit: yes Reason for continuing: Hourly intake/output Insertion date: 04/04/18 Insertion time: 13:50 Indwelling Urethral Catheter Cath placed during this visit: yes Reason for continuing: Hourly intake/output Insertion date: 04/04/18 Insertion time: 22:40 Results - Labs CBC & Chem 7: 04/06/18 05:00 04/06/18 05:00 Laboratory Results - last 24 hr 04/05/18 04/05/18 04/06/18 06:10 18:12 05:00 WBC 21.7 H RBC 3.57 L Hgb 11.2 L Hct 33.0 L MCV 92.7 MCH 31.4 MCHC 33.9 RDW 17.1 Plt Count 231 MPV 8.0 Neut % (Auto) 90.3 H Lymph % (Auto) 2.9 L [place] % (Auto) 6.1 Eos % (Auto) 0.0 Baso % (Auto) 0.7 Neut # (Auto) 19.6 H Lymph # (Auto) 0.6 L [place] # (Auto) 1.3 H Eos # (Auto) 0.0 Baso # (Auto) 0.2 WBC Differential . Differential Comment Auto diff final Sodium Potassium Chloride Carbon Dioxide Anion Gap BUN Creatinine Estimated GFR POC Glucose 87 Random Glucose Hemoglobin A1c 4.2 L Calcium Prot Corrected Calcium Total Bilirubin AST ALT Alkaline Phosphatase Total Protein Albumin 04/06/18 04/06/18 05:00 08:24 WBC RBC Hgb Hct MCV MCH MCHC RDW Plt Count MPV Neut % (Auto) Lymph % (Auto) [place] % (Auto) Eos % (Auto) Baso % (Auto) Neut # (Auto) Lymph # (Auto) [place] # (Auto) Eos # (Auto) Baso # (Auto) WBC Differential Differential Comment Sodium 152 H Potassium 3.5 Chloride 111 H Carbon Dioxide 28.9 Anion Gap 12 BUN 99 H Creatinine 2.15 H Estimated GFR 31 L POC Glucose 91 Random Glucose 83 Hemoglobin A1c Calcium 14.1 H* Prot Corrected Calcium Total Bilirubin 3.9 H AST 132 H ALT 66 Alkaline Phosphatase 284 H Total Protein 5.6 L Albumin 1.6 L Microbiology 04/04/18 14:45 Blood - Peripheral Aerobic Blood Culture - Preliminary No growth in 2 days 04/04/18 14:45 Blood - Peripheral Anaerobic Blood Culture - Preliminary No growth in 2 days 04/04/18 14:50 Blood - Peripheral Aerobic Blood Culture - Preliminary No growth in 2 days 04/04/18 14:50 Blood - Peripheral Anaerobic Blood Culture - Preliminary No growth in 2 days Assessment and Plan - Plan 67-year-old white male with a history of metastatic squamous cell cancer first diagnosed in 2010 with continued decompensation Increase IV hydration rate. Maintain n.p.o. status until patient's p.o. intake improves then diet will be considered to be advanced. Plan for MRI today. Continue monitoring electrolytes including calcium and continue monitoring renal function. Labs ordered for further monitoring. Acute encephalopathy Multifactorial (cancer, metabolic, CVA) Not significantly improved thus far Continue to treat calcium levels Supportive care Hypercalcemia Slight improvement Related to metastasis Continue IV fluids Acute CVA Continue aspirin Neurology following Speech therapy, Occupational Therapy, physical therapy Metastatic squamous cell cancer Poor prognosis Oncology following DNR Possible candidate for hospice if no improvement Acute kidney injury Continue IV hydration (rate decrease) Avoid nephrotoxins Monitor renal function Leukocytosis Lactic acidosis Community-acquired pneumonia Continue Zosyn Follow clinically for improvement COPD Continue duo nebs Malnutrition May be from poor p.o. intake dietary consulted DVT prophylaxis Lovenox
--- NOTE | 2018-04-06 12:46 | P.CONNP ---
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 Patient presented to the emergency room with worsening mental status, slurred speech, weakness and poor intake. Patient has AMS and non verbal during exam so history is obtained from chart. Nephrology is consulted for worsening renal indices with a creatinine of 2.15 with hypercalcemia with calcium level of 14.1. Review of Systems unobtainable due to mental condition PMFSH - History History Provided By: Patient, Family Member, Medical Record - Medical History Medical History: Medical History (Last Reviewed 04/05/18 @ 14:35 by Shruthi Walls) Barretts esophagus Gout Hypertension Liver metastasis Lung cancer Squamous cell carcinoma - Surgical History Surgical History: Surgical History (Last Reviewed 04/05/18 @ 14:35 by Shruthi Walls) H/O knee surgery History of lung surgery History of removal of Port-a-Cath Port-A-Cath in place - Family History Family History: Family History (Last Updated 04/04/18 @ 17:38 by Unique Whipple MD) Mother Lung cancer Father Stomach cancer Other No history of diabetes mellitus No history of hypertension - Tobacco History Second Hand Smoke Exposure: No Smoking Status: Former smoker Tobacco Type: Cigarettes - Alcohol History How Often Do You Have a Drink Containing Alcohol: Never - Substance Use History Substance History: No History of Abuse - Travel History Recent Travel in the [place] Within the Last 8 Weeks: No Recent Travel Out of the Country Within the Last 8 Weeks: No - Immunization History Tetanus Immunization: >5 Years Medications and Allergies Allergies Allergy/AdvReac Type Severity Reaction Status Date / Time No Known Allergies Allergy Verified 04/04/18 13:18 Active Medications: Active Medications Acetaminophen (Tylenol) 650 mg PO Q6HR PRN PRN Reason: PAIN SCALE 1 TO 2 Aspirin (Aspirin Chew) 81 mg PO DAILY ADAM Dextrose (D50w Vial) 50 ml IV.PUSH UNSCH PRN PRN Reason: PER HYPOGLYCEMIA PROTOCOL Enalaprilat (Vasotec Inj) 1.25 mg IV.PUSH Q4H PRN PRN Reason: For SBP > 220 or DBP > 120 Enoxaparin Sodium (Lovenox Inj) 30 mg SQ Q24H [facility] Last Admin: 04/05/18 18:13 Dose: 30 mg Glucagon (Glucagon Inj) 1 mg OTHER UNSCH PRN PRN Reason: for Hypoglycemia Protocol Sodium Chloride (Ns Inj) 1,000 mls @ 75 mls/hr IV.CONT .[id number] [facility] Last Admin: 04/06/18 12:07 Dose: 75 mls/hr Piperacillin/Tazobactam/Dextrose (Zosyn 3.375 Gm Premix) 50 mls @ 100 mls/hr IV.SIG Q6H [facility] Last Infusion: 04/06/18 12:24 Dose: 0 mls/hr Insulin Aspart (Novolog Insulin Correctional Sugar Inj) 0 unit SQ ACHS [facility]; Protocol Last Admin: 04/06/18 12:00 Dose: Not Given Lorazepam (Ativan Inj) 1 mg IV.PUSH ONCE PRN PRN Reason: 15 minutes prior to MRI Stop: 04/06/18 23:59 Morphine Sulfate (Morphine Inj) 4 mg IV.PUSH Q3H PRN PRN Reason: BREAKTHROUGH PAIN Naloxone HCl (Narcan Inj) 0.4 mg IV.PUSH UNSCH PRN PRN Reason: SEE LABEL COMMENTS Oxycodone/Acetaminophen (Percocet 10/325 Mg) 1 tab PO Q6H PRN PRN Reason: PAIN SCALE 6 TO 10 Oxycodone/Acetaminophen (Percocet 5/325 Mg) 1 tab PO Q6H PRN PRN Reason: PAIN SCALE 3 TO 5 Pravastatin Sodium (Pravachol) 40 mg PO HS [facility] Last Admin: 04/05/18 21:02 Dose: Not Given Sodium Chloride (Ns Flush) 2 ml IV.FLUSH BID [facility] Last Admin: 04/06/18 10:01 Dose: 2 ml Sodium Chloride (Ns Flush) 2 ml IV.FLUSH PRN PRN PRN Reason: FLUSH AFTER USING IV ACCESS Exam Vital signs: Vital Signs 04/05/18 15:55 04/05/18 16:00 04/05/18 20:00 Temperature 97.6 F 97.7 F Pulse Rate 101 H 115 H 102 H Respiratory Rate 20 18 Blood Pressure 146/80 H 98/63 L Pulse Oximetry 93 L 93 L 04/05/18 21:12 04/05/18 21:20 04/06/18 00:00 Temperature 97.6 F Pulse Rate 112 H 103 H Respiratory Rate 18 Blood Pressure 131/65 Pulse Oximetry 97 91 L 04/06/18 04:00 04/06/18 08:00 Temperature 98.2 F 98.1 F Pulse Rate 103 H 108 H Respiratory Rate 18 20 Blood Pressure 110/59 L 125/63 Pulse Oximetry 91 L 97 Intake & Output 04/05/18 04/06/18 04/06/18 18:59 06:59 18:59 Intake Total 100 / 100 1100 / 1100 1000 / 1000 Output Total 1375 / 1375 500 / 500 575 / 575 Balance -1275 / -1275 600 / 600 425 / 425 Weight 78.5 kg Intake: IV 100 / 100 1100 / 1100 1000 / 1000 NS Inj 1,000 ML @ 75 mls/hr IV. 1000 / 1000 1000 / 1000 CONT .[id number] ADAM Rx#:[id number] Zosyn 3.375 GM Premix 50 ML @ 100 / 100 100 / 100 100 mls/hr IV.SIG Q6H ADAM Rx#: [id number] Oral 0 / 0 0 / 0 Output: Urine 1100 / 1100 500 / 500 Urine/Stool Mix 0 / 0 Urine Amount (Catheter) 275 / 275 575 / 575 Indwelling Urethral Catheter 275 / 275 575 / 575 Other: Date of Last Bowel Movement 04/05/18 # Bowel Movements 0 Narrative: GENERAL: AMS, non verbal SKIN: Warm and dry. NECK: Supple, trachea midline. No JVD or lymphadenopathy. CARDIOVASCULAR: Regular rate and rhythm without murmurs, gallops, or rubs. RESPIRATORY: Breath sounds equal bilaterally. No accessory muscle use. GASTROINTESTINAL: Abdomen soft, non-tender, nondistended. GENITOURINARY: Indwelling Anderson catheter, dark colored urine MUSCULOSKELETAL: No cyanosis, or edema. BACK: Nontender without obvious deformity. No CVA tenderness. Results - Lab Results 04/06/18 05:00 04/06/18 05:00 Most recent lab results Calcium 14.1 mg/dL (8.5-10.1) H* 10/24/18 05:00 Magnesium 2.1 mg/dL (1.5-2.5) 04/04/18 13:44 Assessment and Plan - Assessment (1) Weakness Code(s): R53.1 - Weakness Status: Acute (2) Lung mass Code(s): R91.8 - Other nonspecific abnormal finding of lung field Status: Acute (3) Liver metastasis Code(s): C78.7 - Secondary malignant neoplasm of liver and intrahepatic bile duct Status: Acute (4) Altered mental status Code(s): R41.82 - Altered mental status, unspecified Status: Acute (5) RAYSHAWN (acute kidney injury) Code(s): N17.9 - Acute kidney failure, unspecified Status: Acute (6) Leukocytosis Code(s): D72.829 - Elevated white blood cell count, unspecified Status: Acute (7) Hypercalcemia Code(s): E83.52 - Hypercalcemia Status: Acute - Plan Acute kidney injury with a creatinine of 2.15 RAYSHAWN most likely prerenal azotemia from poor po intake CT of abdomen and pelvis: Kidneys are symmetrical in size without evidence for radiopaque renal calculi or hydronephrosis. No significant contour deforming renal abnormality. Stable 2.8 cm indeterminate density exophytic hypodense lesion in the mid right kidney. Continue IVF fluids changed to D5 1/2 NS with hypernatremia Avoid nephrotoxins including NSAIDs and IV contrast Maintain I+0, keep indwelling anderson catheter Hypercalcemia from malignancy at 14.1 improving from 15.2 on admission, continue IVF Pamidronate 60 mg X 1 Antibiotics renal dose as appropriate Will follow urinary output and BMP Labs in AM <Ava Rodriguez - Last Filed: 04/09/18 18:18> History of Present Illness Primary Care Provider: UNKNOWN [facility] - Medical History Medical History: Medical History (Last Reviewed 04/05/18 @ 14:35 by Shruthi Walls) Barretts esophagus Gout Hypertension Liver metastasis Lung cancer Squamous cell carcinoma - Surgical History Surgical History: Surgical History (Last Reviewed 04/05/18 @ 14:35 by Shruthi Walls) H/O knee surgery History of lung surgery History of removal of Port-a-Cath Port-A-Cath in place - Family History Family History: Family History (Last Updated 04/04/18 @ 17:38 by Unique Whipple MD) Mother Lung cancer Father Stomach cancer Other No history of diabetes mellitus No history of hypertension Results - Lab Results 04/06/18 05:00 04/06/18 05:00 Most recent lab results ABG pH 7.26 (7.380-7.420) L* 04/06/18 17:15 ABG pCO2 71 mmHg (38-42) H* 04/06/18 17:15 ABG pO2 205 mmHg (61-120) H 04/06/18 17:15 ABG HCO3 31 mmol/L (22-26) H 04/06/18 17:15 Calcium 14.1 mg/dL (8.5-10.1) H* 04/06/18 05:00 Phosphorus Cancelled 04/07/18 06:57 Magnesium 2.1 mg/dL (1.5-2.5) 04/04/18 13:44 Assessment and Plan - Assessment (1) Weakness Code(s): R53.1 - Weakness Status: Acute (2) Lung mass Code(s): R91.8 - Other nonspecific abnormal finding of lung field Status: Acute (3) Liver metastasis Code(s): C78.7 - Secondary malignant neoplasm of liver and intrahepatic bile duct Status: Acute (4) Altered mental status Code(s): R41.82 - Altered mental status, unspecified Status: Acute (5) RAYSHAWN (acute kidney injury) Code(s): N17.9 - Acute kidney failure, unspecified Status: Acute (6) Leukocytosis Code(s): D72.829 - Elevated white blood cell count, unspecified Status: Acute (7) Hypercalcemia Code(s): E83.52 - Hypercalcemia Status: Acute - Plan Patient seen and examine, agree with above. Has RAYSHAWN and Hypercalcemia. RAYSHAWN is most likely due to pre renal, ATN or from Hypercalcemia. Continue IVF, and give one dose of Aredia. Follow the urine out put and BMP.
--- NOTE | 2018-04-06 14:11 | MR ---
EXAM DATE: 04/06/2018 6:59 AM EDT AGE/SEX: 67 years / Male INDICATIONS: Altered mental status. CLINICAL DATA: This is the patient's subsequent encounter. Patient reports that signs and symptoms h ave been present for 1 week and indicates a pain score of 2/10. MEDICAL/SURGICAL HISTORY: Carcinoma, lung. Hypertension. gout, liver mets . knee surgery, allie g surgery COMPARISON: [facility] [facility], CT HEAD W/O CONTRAST, 04/04/2018. . TECHNIQUE: Multiplanar, multisequence examination of the brain was performed without contrast. FINDINGS: Cerebrum: The ventricles are normal for age. There is some bilateral cortical atrophy. No evidence o f midline shift, mass lesion, hemorrhage or acute infarction. No extraaxial fluid collections are se en. The pituitary gland and suprasellar cistern are normal in configuration. White Matter: No significant signal abnormalities are seen in the white matter. Posterior Fossa: The cerebellum and brainstem are intact. The 4th ventricle is midline. The cerebel lopontine angle is unremarkable. The cerebellar tonsils are normal in position. Diffusion Imaging: No focal areas of restricted diffusion are seen. No evidence of acute infarction . Extracranial: The visualized portions of the orbits and paranasal sinuses are unremarkable. CONCLUSION: 1. Bilateral cortical atrophy characteristic for patient's age. 2. Otherwise, unremarkable MRI of the brain. Specifically, no restricted diffusion are seen high bere ng the left cerebral vertex. Electronically signed by: Ranjit Roberts MD 04/06/2018 2:09 PM EDT
--- NOTE | 2018-04-06 14:33 | MR ---
EXAM DATE: 04/06/2018 11:25 AM EDT AGE/SEX: 67 years / Male INDICATIONS: Altered mental status. CLINICAL DATA: This is the patient's subsequent encounter. Patient reports that signs and symptoms h ave been present for 2 days and indicates a pain score of 0/10. MEDICAL/SURGICAL HISTORY: Carcinoma, lung. liver mets, gout . knee surgery, lung surgery COMPARISON: No prior exams available for comparison. TECHNIQUE: 3D time-of- flight MRA of the extracranial circulation was performed using a [employer] ar coil. Post processing was performed including rotating sub-volume maximum intensity projections o f each carotid artery, rotating full-volume maximum intensity projections of both carotid arteries, s agittal and coronal sliding thin-slab reformations of each carotid artery, and left oblique sliding t hin-slab reformation through the aortic arch to include the origin of the arch branch vessels. FINDINGS: Examination is markedly limited by patient motion. Aortic Arch : 3 vessel arch anatomy. Otherwise, obscured by motion. Right Carotid : Origin of the common carotid artery is not well demonstrated. Common carotid artery is otherwise grossly patent. Carotid bulb is slightly patent. Internal carotid artery is grossly reyez nt. External carotid artery is grossly patent. Left Carotid : Origin of the common carotid artery is not well demonstrated. Common carotid artery i s otherwise grossly patent. Carotid bulb is slightly patent. Internal carotid artery is grossly paten t. External carotid artery is grossly patent. Vertebrals : Origin of the vertebral arteries are obscured. Right vertebral artery is grossly patent . Left vertebral artery is grossly patent. CONCLUSION: 1. Extremely Limited MRA examination due to patient motion. 2. Carotid origins are not evaluated. Otherwise, no high-grade carotid stenosis or occlusion. 3. Vertebral artery origins are not evaluated. Otherwise, no high-grade vertebral artery stenosis or occlusion. Percent stenosis is calculated using the diameter of the stenotic region over the diameter of the nor mal distal internal carotid artery Electronically signed by: Dago Stone MD 04/06/2018 2:32 [place]
--- NOTE | 2018-04-06 15:02 | P.PNONC ---
Subjective Interval history: Afebrile. Patient appears to be sleeping on approach, he does not answer questions. He is restless in the bed. Discussed with nurse, he recently returned from MRI. Patient was sedated for MRI. Objective Vital Signs/Intake & Output: Vital Signs 04/05/18 15:55 04/05/18 16:00 04/05/18 20:00 Temperature 97.6 F 97.7 F Pulse Rate 101 H 115 H 102 H Respiratory Rate 20 18 Blood Pressure 146/80 H 98/63 L Pulse Oximetry 93 L 93 L 04/05/18 21:12 04/05/18 21:20 04/06/18 00:00 Temperature 97.6 F Pulse Rate 112 H 103 H Respiratory Rate 18 Blood Pressure 131/65 Pulse Oximetry 97 91 L 04/06/18 04:00 04/06/18 08:00 Temperature 98.2 F 98.1 F Pulse Rate 103 H 108 H Respiratory Rate 18 20 Blood Pressure 110/59 L 125/63 Pulse Oximetry 91 L 97 Intake & Output 04/05/18 04/06/18 04/06/18 18:59 06:59 18:59 Intake Total 100 / 100 1100 / 1100 1000 / 1000 Output Total 1375 / 1375 500 / 500 575 / 575 Balance -1275 / -1275 600 / 600 425 / 425 Weight 78.5 kg Intake: IV 100 / 100 1100 / 1100 1000 / 1000 NS Inj 1,000 ML @ 75 mls/hr IV. 1000 / 1000 1000 / 1000 CONT .[id number] ADAM Rx#:[id number] Zosyn 3.375 GM Premix 50 ML @ 100 / 100 100 / 100 100 mls/hr IV.SIG Q6H ADAM Rx#: [id number] Oral 0 / 0 0 / 0 Output: Urine 1100 / 1100 500 / 500 Urine/Stool Mix 0 / 0 Urine Amount (Catheter) 275 / 275 575 / 575 Indwelling Urethral Catheter 275 / 275 575 / 575 Other: Date of Last Bowel Movement 04/05/18 # Bowel Movements 0 Result Diagrams: 04/06/18 05:00 04/06/18 05:00 Laboratory Results: Laboratory Results - last 24 hr 04/05/18 04/05/18 04/06/18 06:10 18:12 05:00 WBC 21.7 H RBC 3.57 L Hgb 11.2 L Hct 33.0 L MCV 92.7 MCH 31.4 MCHC 33.9 RDW 17.1 Plt Count 231 MPV 8.0 Neut % (Auto) 90.3 H Lymph % (Auto) 2.9 L [place] % (Auto) 6.1 Eos % (Auto) 0.0 Baso % (Auto) 0.7 Neut # (Auto) 19.6 H Lymph # (Auto) 0.6 L [place] # (Auto) 1.3 H Eos # (Auto) 0.0 Baso # (Auto) 0.2 WBC Differential . Differential Comment Auto diff final Sodium Potassium Chloride Carbon Dioxide Anion Gap BUN Creatinine Estimated GFR POC Glucose 87 Random Glucose Hemoglobin A1c 4.2 L Calcium Prot Corrected Calcium Total Bilirubin AST ALT Alkaline Phosphatase Total Protein Albumin 04/06/18 04/06/18 04/06/18 05:00 08:24 11:57 WBC RBC Hgb Hct MCV MCH MCHC RDW Plt Count MPV Neut % (Auto) Lymph % (Auto) [place] % (Auto) Eos % (Auto) Baso % (Auto) Neut # (Auto) Lymph # (Auto) [place] # (Auto) Eos # (Auto) Baso # (Auto) WBC Differential Differential Comment Sodium 152 H Potassium 3.5 Chloride 111 H Carbon Dioxide 28.9 Anion Gap 12 BUN 99 H Creatinine 2.15 H Estimated GFR 31 L POC Glucose 91 97 Random Glucose 83 Hemoglobin A1c Calcium 14.1 H* Prot Corrected Calcium Total Bilirubin 3.9 H AST 132 H ALT 66 Alkaline Phosphatase 284 H Total Protein 5.6 L Albumin 1.6 L Culture Results: Microbiology 04/04/18 14:45 Aerobic Blood Culture - Preliminary Blood - Peripheral No growth in 2 days Anaerobic Blood Culture - Preliminary No growth in 2 days 04/04/18 14:50 Aerobic Blood Culture - Preliminary Blood - Peripheral No growth in 2 days Anaerobic Blood Culture - Preliminary No growth in 2 days Imaging Studies: Impressions Neck MRA 04/06/18 00:00 CONCLUSION: 1. Extremely Limited MRA examination due to patient motion. 2. Carotid origins are not evaluated. Otherwise, no high-grade carotid stenosis or occlusion. 3. Vertebral artery origins are not evaluated. Otherwise, no high-grade vertebral artery stenosis or occlusion. _ Percent stenosis is calculated using the diameter of the stenotic region over the diameter of the normal distal internal carotid artery _ Head MRI 04/06/18 06:59 CONCLUSION: 1. Bilateral cortical atrophy characteristic for patient's age. 2. Otherwise, unremarkable MRI of the brain. Specifically, no restricted diffusion are seen high along the left cerebral vertex. Medications: Active Medications Generic Name Dose Route Start Last Admin Trade Name Freq PRN Reason Stop Dose Admin Enoxaparin Sodium 30 mg 04/04/18 17:00 04/05/18 18:13 Lovenox Inj SQ 30 mg Q24H ADAM Administration Sodium Chloride 1,000 mls @ 75 mls/hr 04/04/18 16:30 04/06/18 12:07 Ns Inj IV.CONT 75 mls/hr .[id number] ADAM Administration Piperacillin/Tazobactam/Dextrose 50 mls @ 100 mls/hr 04/05/18 18:00 04/06/18 12:24 Zosyn 3.375 Gm Premix IV.SIG 0 mls/hr Q6H ADAM Infusion Insulin Aspart 0 unit 04/04/18 17:00 04/06/18 12:00 Novolog Insulin Correctional Sugar Inj SQ Not Given ACHS ADAM Protocol Pravastatin Sodium 40 mg 04/04/18 21:00 04/05/18 21:02 Pravachol PO Not Given HS ADAM Sodium Chloride 2 ml 04/04/18 21:00 04/06/18 10:01 Ns Flush IV.FLUSH 2 ml BID ADAM Administration Objective Remarks: GENERAL: Chronically ill-appearing thin, male patient, no acute distress. Lethargic. SKIN: Warm and dry. HEAD: Normocephalic. EYES: No scleral icterus. No injection or drainage. NECK: Supple, trachea midline. CARDIOVASCULAR: Tachycardic. RESPIRATORY: Anterior breath sounds diffuse rhonchi. No accessory muscle use. GASTROINTESTINAL: Abdomen flat, soft, nondistended. EXTREMITIES: No cyanosis, or edema. MUSCULOSKELETAL: Decreased muscle tone. NEUROLOGICAL: Lethargic, does not answer questions.. PSYCHIATRIC: Restless. Assessment/Plan - Plan Mr. 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 He received concurrent chemotherapy and radiation, last seen in 2013 and was lost to follow-up. March 16, 2018 patient was readmitted for decreased appetite and difficulty eating. He was found to have severe hypercalcemia and CT scan showed metastatic disease to the lung as well as innumerable metastatic disease to the liver. The patient was pending start of palliative chemotherapy in the outpatient clinic. He is again readmitted at this facility for hypercalcemia, altered mental status and renal insufficiency. 1. Metastatic poorly differentiated squamous cell carcinoma, patient was scheduled to start palliative chemotherapy. He has had a rapid decline in his performance status. Await recovery of acute illness and performance status. 2. Hypercalcemia, calcium level with slight improvement today, 14.1. 3. Acute kidney injury. Nephrology has been consulted. 4. Altered mental status, MRI showed bilateral cortical atrophy characteristic for patient's age. Lethargy, possibly secondary to Ativan used for sedation for MRI. 5. Discussed with RN. Continue supportive care. - Attending Statement The exam, history, and the medical decision-making described in the above note were completed with the assistance of the mid-level provider. I reviewed and agree with the findings presented. I attest that I had a [id number] encounter with the patient on the same day, and personally performed and documented my assessment and findings in the medical record. Patient seen and examined. All 3 sisters are at bedside. We had a lengthy discussion about his diagnosis and the rapid progression over the last several days. He was apparently doing well at rehab until about . He had a very quick decline to the point that he was not getting out of bed on Wednesday. He was brought into the hospital confused. Efforts to resuscitate him and decrease his calcium has not been effective. On the contrary he developed worsened renal failure after the Zometa at full dose. His confusion persisted. He has been evaluated by neurology. MRI was negative for CLERICAL ADMINISTRATIVE ASSISTANT metastatic disease or anatomical etiology for his confusion. He does not recognize his family members next to him. Progression of his metastatic squamous cell cancer is likely reason for his confusion and clinical decline. We discussed that his performance status and his mental status change prevent us from being able to offer any palliative treatment. All sisters were in agreement with palliation and hospice care. [facility] was called stat. All family members at bedside in agreement with hospice care. Emotional support is provided.
[2018-04-06] MEDS ORDERED: Dextrose 5%/NaCl 0.45% Inj 1,000 ML IV.CONT SCH (16:00)
[2018-04-06 17:30] LABS: ABG PCO2 71 mmHg (38-42); ABG PO2 205 mmHg (61-120)
[2018-04-06] MEDS: Enoxaparin Inj 30 MG/0.3 ML Syringe SQ SCH (18:07)
[2018-04-06] MEDS ORDERED: Pamidronate Inj 60 MG in Sodium Chlor 0.9% Inj 500 ML IV.SIG ONE (20:00)
[2018-04-06 20:58] VITALS: O2SAT 93
[2018-04-06 22:15] VITALS: BP 84/53; PULSE 131; RESP 40; TEMP 100.9
--- NOTE | 2018-04-07 01:59 | ECG ---
Date Performed: 04/04/2018 Time Performed: 14:44:46 PTAGE: 67 years EKG: Sinus rhythm INFERIOR MYOCARDIAL INFARCTION ABNORMAL ECG PREVIOUS TRACING : 03/16/2018 08.56 Since the previous tracing, no significant change noted DOCTOR: Maulik Tapia Interpretating Date/Time 04/07/2018 01:58:32
--- NOTE | 2018-04-07 02:00 | ECG ---
Date Performed: 04/04/2018 Time Performed: 14:26:16 PTAGE: 67 years EKG: Sinus rhythm INFERIOR MYOCARDIAL INFARCTION ABNORMAL ECG Since the PREVIOUS TRACING , no significant change noted DOCTOR: Maulik Tapia Interpretating Date/Time 04/07/2018 01:59:25
--- NOTE | 2018-04-07 19:56 | MG ---
cc: Joon Walls MD FINDINGS: Loss of white matter mass effect in the left frontal region, possible infarct, squamous cell carcinoma, infarct versus mass some 6 Hz diffuse slowing is noted and leg shaking is seen, but just shows some movement artifact. The recording overall is synchronous and symmetric. I do not see any left frontal abnormality. No seizure activity is seen. Photic stimulation is performed without significant posterior driving. IMPRESSION: Diffuse slowing consistent with a moderate diffuse encephalopathy, but no focal abnormalities noted. No seizure activity is seen. MD AGUSTÍN Anderson/bella , 06:21 PM , 06:27 PM
--- NOTE | 2018-04-08 09:26 | P.DS ---
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 Boyle and had a port placed re-presented back to the emergency room due to worsening altered mental status during the past 3 days. His sister, who is also the healthcare proxy Ifeoma Berg assisted me in obtaining history due to patient's altered mental status. She stated that he had decompensated during the past 3-4 days and had poor p.o. intake and had difficulty even getting out of bed and conversing with her. She is noted increased slurred speech along with increased altered mental status. He has also been more combative during the past 48 hours. She is noted that he would have coughing spells but has not observed any signs of shortness of breath at the rehab facility. Most of the other history was gathered from reviewing old medical records. DS: Summary Hospital Course: Mr. Nagy is a 68-year-old male. She has a history of metastatic squamous cell cancer which has metastasized to T9, liver, and lung. He has been having problems recently with hyperkalemia and acute kidney injury. He came in secondary to altered mental status. Hyperkalemia was also present again. This is treated with IV hydration and improved but did not resolve. Etiology for this is related to his cancer. Mental status did not improve through time. Graduating lethargy has been present. Family converted patient to DNR. Confusion is persisting and family decided to transition patient to hospice on 04/06/2018. Patient discharged to hospice. - Time Spent with Patient Total time spent providing and/or coordinating discharge services: Less than 30 minutes Results Procedures completed during hospitalization: None Labs on day of discharge: Labs from last 24 hours 04/07/18 04/07/18 06:57 06:57 CBC w Diff Cancelled WBC Cancelled Corrected WBC Cancelled RBC Cancelled Hgb Cancelled Hct Cancelled MCV Cancelled MCH Cancelled MCHC Cancelled RDW Cancelled Plt Count Cancelled MPV Cancelled Prelim Diff (Auto) Cancelled Immature Gran % (Auto) Cancelled Neut % (Auto) Cancelled Lymph % (Auto) Cancelled Merrick % (Auto) Cancelled Eos % (Auto) Cancelled Baso % (Auto) Cancelled Immature Gran # (Auto) Cancelled Neut # (Auto) Cancelled Lymph # (Auto) Cancelled Merrick # (Auto) Cancelled Eos # (Auto) Cancelled Baso # (Auto) Cancelled WBC Differential Cancelled Diff Scan Cancelled Seg Neuts % (Manual) Cancelled Band Neuts % (Manual) Cancelled Lymphocytes % (Manual) Cancelled Atypical Lymphs % (Man) Cancelled Monocytes % (Manual) Cancelled Eosinophils % (Manual) Cancelled Basophils % (Manual) Cancelled Metamyelocytes % (Man) Cancelled Myelocytes % (Man) Cancelled Promyelocytes % (Man) Cancelled Blast Cells % (Manual) Cancelled Plasma Cell % (Manual) Cancelled Other Cells % Cancelled Abs Neuts (Manual) Cancelled Nucleated RBCs/100 WBC Cancelled Differential Comment Cancelled Hypersegmented Neuts Cancelled Smudge Cells Cancelled Toxic Granulation Cancelled Toxic Vacuolation Cancelled Dohle Bodies Cancelled Platelet Estimate Cancelled Platelet Morphology Cancelled RBC Morphology Cancelled Dimorphic RBCs Cancelled Polychromasia Cancelled Basophilic Stippling Cancelled Spherocytes Cancelled Pappenheimer Bodies Cancelled Sickle Cells Cancelled Target Cells Cancelled Tear Drop Cells Cancelled Ovalocytes Cancelled Stomatocytes Cancelled Helmet Cells Cancelled Duncan-Elba Bodies Cancelled Kandice Cells Cancelled Acanthocytes (Spur) Cancelled Rouleaux Cancelled Keratocytes Cancelled Hematology Comments Cancelled Sodium Cancelled Potassium Cancelled Chloride Cancelled Carbon Dioxide Cancelled Anion Gap Cancelled BUN Cancelled Creatinine Cancelled Estimated GFR Cancelled Random Glucose Cancelled Calcium Cancelled Prot Corrected Calcium Cancelled Phosphorus Cancelled Total Bilirubin Cancelled AST Cancelled ALT Cancelled Alkaline Phosphatase Cancelled Total Protein Cancelled Albumin Cancelled Preliminary micro results at discharge 04/04/18 14:45 Aerobic Blood Culture - Preliminary Blood - Peripheral No growth in 3 days Anaerobic Blood Culture - Preliminary No growth in 3 days 04/04/18 14:50 Aerobic Blood Culture - Preliminary Blood - Peripheral No growth in 3 days Anaerobic Blood Culture - Preliminary No growth in 3 days - Impressions ITS Impressions Carotid Doppler Study 04/04/18 00:00 CONCLUSION: 1. Right Internal Carotid Artery: Severe atherosclerotic calcified plaquing throughout the common and internal carotid. No sonographic or Doppler findings of a hemodynamically significant stenosis, however 2. Left Internal Carotid Artery: Unable to obtain. Patient was extremely uncooperative. 3. Could not evaluate vertebral arteries. Again, patient refused to cooperate with the exam. Chest X-Ray 04/04/18 13:16 CONCLUSION: No significant interval change compared to the prior examination. Head CT 04/04/18 13:16 CONCLUSION: 1. Subtle focal loss of johnson-white matter differentiation in the medial left frontal high convexities without significant mass effect. Findings are most consistent with an acute focal infarct. Given history of lung carcinoma, patient may benefit from contrast enhanced MRI examination for further characterization. . Abdomen/Pelvis CT 04/04/18 15:14 CONCLUSION: 1. Innumerable hepatic masses consistent with metastatic disease. Hepatic capsular distention can result in abdominal pain. 2. Trace perihepatic and deep pelvic free fluid. 3. Bulky calcification in the right common femoral artery with likely at least severe stenosis of the distal common femoral artery at the bifurcation. 4. Gallbladder sludge. 5. Colonic diverticulosis without definitive evidence for diverticulitis. 6. Additional stable ancillary findings, as above. Neck MRA 04/06/18 00:00 CONCLUSION: 1. Extremely Limited MRA examination due to patient motion. 2. Carotid origins are not evaluated. Otherwise, no high-grade carotid stenosis or occlusion. 3. Vertebral artery origins are not evaluated. Otherwise, no high-grade vertebral artery stenosis or occlusion. _ Percent stenosis is calculated using the diameter of the stenotic region over the diameter of the normal distal internal carotid artery _ Head MRI 04/06/18 06:59 CONCLUSION: 1. Bilateral cortical atrophy characteristic for patient's age. 2. Otherwise, unremarkable MRI of the brain. Specifically, no restricted diffusion are seen high along the left cerebral vertex. Discharge Plan - Discharge Disposition Patient Disposition: [facility] Facility - Discharge Condition Condition: Fair - Discharge Order Discharge Orders: Discharge Order (Routine); Ordered 04/06/18 Ordered By: Kalani Aiken - Discharge Details Anticipated Discharge Date: 04/06/18 - Physicians Team Primary Care Provider: UNKNOWN, Attending Provider: Jasen Taylor Other Providers: Boris Traore MD, PhD ; Vickie Boyle MD ; Jessica Chen MD ; [facility] ; Ava Rodriguez MD
== END 2018-04-06 20:50 | disposition hospice, inpatient (51) ==
LOC: NEPE 11:51 → NEDA 16:33 → N04 19:26
PROVIDERS: ADMIT Hospitalist; ATTEND Hospitalist